=== PATIENT | male | born 1950 | race Caucasian/White ===

== ENCOUNTER 2017-01-01 17:19 | Emergency (ER) | payer OTHER, MEDICARE ==
[~2017-01-01] VITALS: Ht 177.8 cm; Wt 127.5 kg
[~2017-01-01 17:19] MED LIST: CARV12.5 PO; DIGO0.122 PO; DULO-24 PO; FENO1TAB24 PO; GABA-113 PO; INSHRIE SC; INSHRIE SQ; NRN600 PO; OXYC20TA50 PO; PRD/25 PO; PREG100C PO; ROSU20TA PO; RQP/2 PO; TAMS0.4C38 PO; WARF5TAB7 PO
[2017-01-01 17:20] VITALS: TEMP 36.9; Ht 177.8 cm; Wt 127.5 kg
[2017-01-01] MEDS ORDERED: METHYLPREDNISOLONE 125 MG VIAL IV STA (17:32)
--- NOTE | 2017-01-01 17:39 | EMERGENCY ROOM VISIT NOTE ---
History Report prepared by Kevin: Laith Davidson Under the Supervision of: Dr. Rayo Amos M.D. First contact with patient: 17:28 Chief Complaint: REFERRED BY DOCTOR Stated Complaint: CONGESTION, SEVERE LUNGS History of Present Illness The patient is a 66 year old male who presents to the Emergency Room with complaints of constant difficulty breathing for the past couple of days. The patient additionally states that that he is having chest tightness. The patient states that he has had bronchitis twice this winter, and it got better with antibiotics, and it has come back again. The patient's states that he has a history of a pulmonary embolus and congestive heart failure. Source of History: patient, spouse/significant other Onset: couple of days ago Position: other (global) Quality: other (difficulty breathing) Timing: constant Note: Associated symptoms: Chest tightness Review of Systems See HPI for pertinent positives & negatives. A total of 10 systems reviewed and were otherwise negative. Past Medical & Surgical Medical Problems: (1) Cardiomyopathy (2) CVA (cerebral vascular accident) (3) Diabetes (4) Diabetes mellitus (5) DVT (deep venous thrombosis) (6) GERD (gastroesophageal reflux disease) (7) History of acute renal failure (8) HTN (hypertension) (9) Hx of septic shock (10) Hypercholesteremia (11) Neuropathy (12) Pulmonary embolism (13) Spinal stenosis Surgical Problems: (1) Carpal tunnel syndrome, bilateral (2) History of tonsillectomy and adenoidectomy (3) Hx of cholecystectomy (4) Previous back surgery Family History Patient reports no known family medical history. Social History Smoking Status: Current Every Day Smoker Drug Use: none Marital Status: Housing Status: lives with family Occupation Status: retired Current/Historical Medications Scheduled Carvedilol (Coreg), 12.5 MG PO BID Digoxin (Digoxin), 0.125 MG PO QPM Duloxetine Hcl (Cymbalta), 20 MG PO QAM Fenofibrate (Fenofibrate), 145 MG PO HS Gabapentin (Neurontin), 300 MG PO QPM Gabapentin (Neurontin), 600 MG PO TID Insulin Human Regular (Humulin R), 70 UNITS SQ AMHS Insulin Human Regular (Humulin R), 85 UNITS SC With Evening Meal Liraglutide (Victoza), 0.6 UNITS SQ QAM Morphine Sulfate (Morphine Sulfate Er), 15 MG PO Q12 Oxycodone Hcl (Oxycodone Hcl), 10 MG PO TID Prednisone (Prednisone), 40 MG PO DAILY Ropinirole Hydrochloride (Requip), 4 MG PO QID Rosuvastatin Calcium (Crestor), 20 MG PO HS Tamsulosin Hcl (Flomax), 0.4 MG PO QPM Warfarin Sod (Jantoven), 5 MG PO QPM Allergies Coded Allergies: Shellfish (Verified Allergy, Intermediate, HIVES, 11/06/16) Fish Allergy (Verified Allergy, Mild, RASH, 11/06/16) Diphenhydramine (Verified Adverse Reaction, Mild, DISORIENTED, 11/06/16) Physical Exam Vital Signs Date Time Temp Pulse Resp B/P Pulse Ox O2 Delivery O2 Flow Rate FiO2 01/01/17 17:47 74 01/01/17 17:20 36.9 81 18 115/72 90 Room Air Physical Exam CONSTITUTIONAL: mild distress HEENT: No icterus, moist mucous membranes NECK: No meningismus, trachea is midline. CARDIOVASCULAR: Regular rate, normal perfusion RESPIRATORY: Unlabored breathing. Mild wheezing in all [place]. GASTROINTESTINAL: Non-tender GENITOURINARY: No flank tenderness MUSCULOSKELETAL: Full range of motion NEUROLOGIC: No acute gross focal deficits. PSYCHIATRIC: Normal affect SKIN: Normal for ethnicity. Medical Decision & Procedures Laboratory Results 01/01/17 17:40 Red Blood Count 4.40, Mean Corpuscular Volume 91.6, Mean Corpuscular Hemoglobin 31.8, Mean Corpuscular Hemoglobin Concent 34.7, Mean Platelet Volume 9.5, Neutrophils (%) (Auto) 69.8, Lymphocytes (%) (Auto) 16.4, Monocytes (%) (Auto) 8.3, Eosinophils (%) (Auto) 5.2, Basophils (%) (Auto) 0.2, Neutrophils # (Auto) 6.00, Lymphocytes # (Auto) 1.41, Monocytes # (Auto) 0.71, Eosinophils # (Auto) 0.45, Basophils # (Auto) 0.02 01/01/17 17:40 Test 01/01/17 17:32 01/01/17 17:40 White Blood Count 8.60 K/uL (4.8-10.8) Red Blood Count 4.40 M/uL (4.7-6.1) Hemoglobin 14.0 g/dL (14.0-18.0) Hematocrit 40.3 % (42-52) Mean Corpuscular Volume 91.6 fL (80-100) Mean Corpuscular Hemoglobin 31.8 pg (25-34) Mean Corpuscular Hemoglobin Concent 34.7 g/dl (32-36) Platelet Count 238 K/uL (130-400) Mean Platelet Volume 9.5 fL (7.4-10.4) Neutrophils (%) (Auto) 69.8 % Lymphocytes (%) (Auto) 16.4 % Monocytes (%) (Auto) 8.3 % Eosinophils (%) (Auto) 5.2 % Basophils (%) (Auto) 0.2 % Neutrophils # (Auto) 6.00 K/uL (1.4-6.5) Lymphocytes # (Auto) 1.41 K/uL (1.2-3.4) Monocytes # (Auto) 0.71 K/uL (0.11-0.59) Eosinophils # (Auto) 0.45 K/uL (0-0.5) Basophils # (Auto) 0.02 K/uL (0-0.2) RDW Standard Deviation 45.8 fL (36.4-46.3) RDW Coefficient of Variation 13.8 % (11.5-14.5) Immature Granulocyte % (Auto) 0.1 % Immature Granulocyte # (Auto) 0.01 K/uL (0.00-0.02) Anion Gap 8.0 mmol/L (3-11) Est Creatinine Clear Calc Drug Dose 83.4 ml/min Estimated GFR () 73.6 Estimated GFR (Non- 63.5 BUN/Creatinine Ratio 17.6 (10-20) Calcium Level 8.5 mg/dl (8.5-10.1) Troponin I < 0.015 ng/ml (0-0.045) Pro-B-Type Natriuretic Peptide 36 pg/ml (0-900) Labs reviewed by ED physician. Medications Administered Medications (Trade) Dose Ordered Sig/Raina Route Start Time Stop Time Status Last Admin Dose Admin Methylprednisolone Sodium Succinate (Solu-Medrol IV) 125 mg NOW STAT IV 01/01/17 17:32 01/01/17 17:34 DC 01/01/17 17:43 125 MG ED Course 1728: Past medical records reviewed. The patient was evaluated in room C10. A complete history and physical examination was performed. 1732: Solo-Medrol IV 125mg Medical Decision Differential diagnoses include but are not limited to; wheezing, viral illness, PE. 66-year-old presents into the emergency department for evaluation of one to 2 weeks of persistent cough and occasional shortness of breath. Seen at [facility] and sent to emergency department for evaluation. Screening exams negative other than likelihood of reactive airway disease. Moderate wheezing noted on exam given albuterol treatment and steroid subsequent relief. Albuterol MDI provided and prescription for prednisone. Provided copy of CAT scan report for follow-up with PCP Impression Primary Impression: Wheezing Scribe Attestation The scribe's documentation has been prepared under my direction and personally reviewed by me in its entirety. I confirm that the note above accurately reflects all work, treatment, procedures, and medical decision making performed by me. Departure Information Dispostion Home / Self-Care Prescriptions Prednisone (Prednisone) 20 Mg Tab 40 MG PO DAILY for 5 Days, #10 TAB Prov: Rayo Amos MD 01/01/17 Referrals Shade Mandel M.D. (PCP) Patient Instructions My [facility]
[2017-01-01] MEDS ORDERED: OPTIRAY 320 IV PRN (17:45)
[2017-01-01 18:03] LABS: BASO % 0.2 %; BASO ABS # 0.02 K/uL (0-0.2); COMPLETE YES; EOS % 5.2 %; HEMATOCRIT 40.3 % (42-52); IG% 0.1 %; LYMPH % 16.4 %; LYMPH ABS # 1.41 K/uL (1.2-3.4); MEAN CELL VOLUME 91.6 fL (80-100); MEAN CORPUSCULAR HEMOGLOBIN 31.8 pg (25-34); MEAN CORPUSCULAR HGB CONC 34.7 g/dl (32-36); MEAN PLATELET VOLUME 9.5 fL (7.4-10.4); MONO % 8.3 %; NEUT % 69.8 %; PLATELET COUNT 238 K/uL (130-400)
[2017-01-01 18:16] LABS: BLOOD UREA NITROGEN 21 mg/dl (7-18); BUN/CREATININE RATIO 17.6 (10-20); CALCIUM 8.5 mg/dl (8.5-10.1); CARBON DIOXIDE 28 mmol/L (21-32); CHLORIDE 102 mmol/L (98-107); GLUCOSE 219 mg/dl (70-99); POTASSIUM 4.6 mmol/L (3.5-5.1); SODIUM 138 mmol/L (136-145)
[2017-01-01] MEDS ORDERED: LNX125 PO (18:28)
[2017-01-01] MEDS ORDERED: OXYC-164 PO (18:28)
[2017-01-01] MEDS ORDERED: MORP1TAB11 PO (18:28)
[2017-01-01] MEDS ORDERED: NRN/600 PO (18:30)
--- NOTE | 2017-01-01 18:45 | DIAGNOSTIC IMAGING REPORT ---
SINGLE VIEW CHEST CLINICAL HISTORY: Dyspnea. FINDINGS: 2 AP, portable, upright chest radiographs are compared to study dated 11/06/2016. Correlation with chest CT dated 08/26/2014. The examination is degraded by portable technique and patient rotation. The heart is enlarged and there is atherosclerotic calcification of the thoracic aorta. Mild interstitial thickening suggests a component of congestive failure. No focal airspace consolidation or large pleural effusion is identified. No pneumothorax is seen. The bony thorax is grossly intact. IMPRESSION: 1. Cardiomegaly. Coarsening of the interstitium suggests mild congestive failure. Clinical correlation will be required. 2. There is no airspace consolidation or large pleural effusion. Electronically signed by: Aleksandar Sanchez M.D. 01/01/2017 6:44 PM Dictated Date/Time: 01/01/2017 6:42 PM
--- NOTE | 2017-01-01 19:26 | DIAGNOSTIC IMAGING REPORT ---
CT ANGIOGRAM OF THE CHEST CLINICAL HISTORY: Dyspnea. COMPARISON STUDY: Chest x-ray dated . Chest CT dated 08/26/2014. TECHNIQUE: Following the IV administration of 108 cc of Optiray 320, CT angiogram of the chest was performed from the upper abdomen to the thoracic inlet utilizing the pulmonary embolus protocol. Images are reviewed in the axial, sagittal, and coronal planes. 3-D MIPS images are created and assessed. IV contrast was administered without complication. CT DOSE: 700.16 mGy.cm FINDINGS: Thyroid: Imaged portions of the thyroid gland are normal in size and attenuation. Thoracic aorta: There is atherosclerotic calcification of the thoracic aorta, which is normal in caliber and demonstrates bovine variant arch anatomy. No dissection is seen. Pulmonary vasculature: The pulmonary trunk is normal in caliber. There are no filling defects identified in main, lobar, or proximal segmental pulmonary branches to suggest pulmonary embolus. Evaluation of the peripheral vessels is degraded by suboptimal contrast opacification. Heart: The heart is enlarged and without pericardial effusion. The coronary arteries are densely calcified. Lungs and pleural spaces: Evaluation of the lung parenchyma is degraded by expiratory motion artifact. Mild emphysematous change is observed. . There is nonspecific peribronchial thickening, with intraluminal fluid/secretions present within the dependent lower lobe airways. No pleural effusion or lobar consolidation is seen. Dependent atelectasis is noted. Scattered calcified granulomas are identified. There is an 11 mm right lower lobe pulmonary nodule seen on image #152. An 8 mm left lower lobe nodule is seen on image #152. A 4 mm pleural-based nodule in the right middle lobe as seen on image #138. A 6 mm right upper lobe nodule is seen on image #212. Mediastinum: There are scattered subcentimeter mediastinal lymph nodes. These are not pathologically enlarged by size criteria. Ruma: Clear. Axillae: There is no axillary lymphadenopathy. Upper abdomen: There is a tiny hiatal hernia. Severe hepatic steatosis is identified. Cholecystectomy clips are noted. The spleen is enlarged measuring 14.7 cm in length. Skeletal structures: The skeletal structures are osteopenic. Degenerative change is seen throughout the thoracic spine. No lytic or blastic bony lesions are seen. IMPRESSION: 1. There is no evidence of pulmonary embolus in the main, lobar, or proximal segmental pulmonary arteries. 2. There is no airspace consolidation or pleural effusion. 3. There is mild diffuse peribronchial thickening. Fluid/secretions are present within the dependent lower lobe airways. Correlate clinically for evidence of reactive airway disease and/or aspiration. 4. Cardiomegaly and mild emphysema. 5. There is an 11 mm right lower lobe pulmonary nodule and an 8 mm left lower lobe pulmonary nodule. Additional smaller nodules are detailed above. The larger nodules were likely present on the 2013 examination; however, direct comparison is difficult due to low resolution of the prior outside study. A 6 month follow-up examination is recommended for reassessment. 7. Severe hepatic steatosis. 8. Splenomegaly. Electronically signed by: Aleksandar Sanchez M.D. 01/01/2017 7:25 PM Dictated Date/Time: 01/01/2017 7:16 PM
[2017-01-01] MEDS ORDERED: PRED20TA PO (19:48)
[2017-01-01] MEDS ORDERED: ALBUTEROL HFA 8 GM INHALER INH ONE (20:00)
[2017-01-01 20:23] VITALS: BP 116/68; PULSE 72; O2SAT 98
[2017-01-01 22:48] LABS: INR 2.8 (0.9-1.1); PARTIAL THROMBOPLASTIN RATIO 1.8; PROTHROMBIN TIME (PATIENT) 31.6 SECONDS (9.0-12.0)
[2017-03-06] MEDS ORDERED: LIRA18IN SQ (14:45)
== END 2017-01-01 20:24 | disposition home or self-care (01) ==
LOC: C.EDB 17:20 → C.EDC 20:24
DX: R06.2 Wheezing (principal); R05 Cough; I10 Essential (primary) hypertension; E78.00 Pure hypercholesterolemia, unspecified; E11.9 Type 2 diabetes mellitus without complications; K21.9 Gastro-esophageal reflux disease without esophagitis; Z86.73 Personal history of transient ischemic attack (TIA), and cerebral infarction without residual deficits; I42.9 Cardiomyopathy, unspecified; F17.200 Nicotine dependence, unspecified, uncomplicated; Z86.711 Personal history of pulmonary embolism; Z86.718 Personal history of other venous thrombosis and embolism; Z90.49 Acquired absence of other specified parts of digestive tract; Z98.890 Other specified postprocedural states; Z79.4 Long term (current) use of insulin; Z79.01 Long term (current) use of anticoagulants; Z79.899 Other long term (current) drug therapy; Z91.018 Allergy to other foods; Z88.8 Allergy status to other drugs, medicaments and biological substances

== ENCOUNTER 2017-01-15 14:03 | Emergency (ER) | payer OTHER, MEDICARE ==
[~2017-01-15] VITALS: Ht 177.8 cm; Wt 128.0 kg
[~2017-01-15 14:03] MED LIST changes: -DIGO0.122 PO; +LNX125 PO; +MORP1TAB11 PO; +NRN/600 PO; -NRN600 PO; +OXYC-164 PO; -OXYC20TA50 PO; -PRD/25 PO; -PREG100C PO
[2017-01-15 14:08] VITALS: TEMP 36.8; Ht 177.8 cm; Wt 128.0 kg
[2017-01-15 14:38] VITALS: O2SAT 96
[2017-01-15 14:56] LABS: BASO % 0.3 %; BASO ABS # 0.03 K/uL (0-0.2); COMPLETE YES; EOS % 2.9 %; HEMATOCRIT 40.2 % (42-52); IG% 0.2 %; LYMPH % 16.8 %; LYMPH ABS # 1.73 K/uL (1.2-3.4); MEAN CELL VOLUME 91.2 fL (80-100); MEAN CORPUSCULAR HEMOGLOBIN 32.2 pg (25-34); MEAN CORPUSCULAR HGB CONC 35.3 g/dl (32-36); MEAN PLATELET VOLUME 9.8 fL (7.4-10.4); MONO % 5.3 %; NEUT % 74.5 %; PLATELET COUNT 243 K/uL (130-400); RED BLOOD COUNT 4.41 M/uL (4.7-6.1)
[2017-01-15] MEDS ORDERED: ALBUT/IPRATROP 3MG/0.5MG NEB 3 ML VIAL INH STA (14:58)
[2017-01-15] MEDS ORDERED: METHYLPREDNISOLONE 125 MG VIAL IV STA (14:58)
[2017-01-15 15:15] LABS: ALB/GLOB RATIO 0.9 (0.9-2); ALKALINE PHOSPHATASE 90 U/L (45-117); ALT/SGPT 76 U/L (12-78); BLOOD UREA NITROGEN 24 mg/dl (7-18); BUN/CREATININE RATIO 20.2 (10-20); CALCIUM 8.7 mg/dl (8.5-10.1); CARBON DIOXIDE 25 mmol/L (21-32); CHLORIDE 102 mmol/L (98-107); GLUCOSE 330 mg/dl (70-99); SODIUM 136 mmol/L (136-145)
[2017-01-15 15:25] LABS: BETA-HYDROXYBUTYRATE 1.89 mg/dL (0.2-2.81)
[2017-01-15 15:39] LABS: POTASSIUM 4.7 mmol/L (3.5-5.1)
--- NOTE | 2017-01-15 15:42 | DIAGNOSTIC IMAGING REPORT ---
CHEST ONE VIEW PORTABLE CLINICAL HISTORY: Shortness of breath COMPARISON STUDY: 01/01/2017 FINDINGS: The heart is normal in size. There is mild interstitial thickening unchanged the prior study. There is no lobar consolidation. A right infrahilar opacity is felt to reflect a summation. No pleural effusions are visualized. There is no pneumothorax.[ IMPRESSION: Stable mild interstitial thickening. No evidence of lobar consolidation. Electronically signed by: Ortiz Pederson M.D. 01/15/2017 3:41 PM Dictated Date/Time: 01/15/2017 3:39 PM
[2017-01-15 15:47] LABS: INR 1.8 (0.9-1.1); PARTIAL THROMBOPLASTIN RATIO 1.4; PROTHROMBIN TIME (PATIENT) 19.3 SECONDS (9.0-12.0)
[2017-01-15] MEDS ORDERED: AZITTAB PO (16:02)
[2017-01-15] MEDS ORDERED: PRED20TA PO (16:02)
--- NOTE | 2017-01-15 16:02 | EMERGENCY ROOM VISIT NOTE ---
History Report prepared by Kevin: Jing Wright Under the Supervision of: Dr. Mars Spann D.O. First contact with patient: 14:51 Chief Complaint: SHORTNESS OF BREATH Stated Complaint: SOB,COUGH Nursing Triage Summary: Patient states was diagnosed with viral bronchitis about 1 month ago. Patient states has taken antibiotics, steroids, and an inhaler with little to no relief. Patient states continues to experience SOB and productive cough and is not feeling any better. History of Present Illness The patient is a 66 year old male who presents to the Emergency Room with complaints of persistent shortness of breath occurring for the past month. He also notes a productive cough with morton colored mucous. He has worsening symptoms with exertion. About a month ago, the patient was placed on antibiotics with temporary relief. About 2 weeks ago, he was evaluated in the Emergency Room for similar symptoms. He was placed on steroids without relief. He has also been using Albuterol without relief. The patient denies fevers, chills, or any other complaints. He has a history of blood clots and heart disease. He is on Coumadin. Source of History: patient Onset: a month ago Position: other (global) Quality: other (shortness of breath) Timing: other (persistent) Modifying Factors (Worsening): exertion Modifying Factors (Relieving): other (steroids, Albuterol without relief; antibiotics with temporary relief) Associated Symptoms: + cough, No chest pain, No chills, No fevers Review of Systems See HPI for pertinent positives & negatives. A total of 10 systems reviewed and were otherwise negative. Past Medical & Surgical Medical Problems: (1) Cardiomyopathy (2) CVA (cerebral vascular accident) (3) Diabetes (4) Diabetes mellitus (5) DVT (deep venous thrombosis) (6) GERD (gastroesophageal reflux disease) (7) History of acute renal failure (8) HTN (hypertension) (9) Hx of septic shock (10) Hypercholesteremia (11) Neuropathy (12) Pulmonary embolism (13) Spinal stenosis Surgical Problems: (1) Carpal tunnel syndrome, bilateral (2) History of tonsillectomy and adenoidectomy (3) Hx of cholecystectomy (4) Previous back surgery Family History Patient reports no known family medical history. Social History Smoking Status: Current Every Day Smoker Drug Use: none Marital Status: Housing Status: lives with family Occupation Status: retired Current/Historical Medications Scheduled Azithromycin (Zithromax Z-Juni), 0 PO UD Carvedilol (Coreg), 12.5 MG PO BID Digoxin (Digoxin), 0.125 MG PO QPM Duloxetine Hcl (Cymbalta), 20 MG PO QAM Fenofibrate (Fenofibrate), 145 MG PO HS Gabapentin (Neurontin), 300 MG PO QPM Gabapentin (Neurontin), 600 MG PO TID Insulin Human Regular (Humulin R), 70 UNITS SQ AMHS Insulin Human Regular (Humulin R), 85 UNITS SC With Evening Meal Liraglutide (Victoza), 0.6 UNITS SQ QAM Morphine Sulfate (Morphine Sulfate Er), 15 MG PO Q12 Oxycodone Hcl (Oxycodone Hcl), 10 MG PO TID Prednisone (Prednisone), 2 TAB PO DAILY Ropinirole Hydrochloride (Requip), 4 MG PO QID Rosuvastatin Calcium (Crestor), 20 MG PO HS Tamsulosin Hcl (Flomax), 0.4 MG PO QPM Warfarin Sod (Jantoven), 5 MG PO QPM Allergies Coded Allergies: Shellfish (Verified Allergy, Intermediate, HIVES, 01/15/17) Fish Allergy (Verified Allergy, Mild, RASH, 01/15/17) Diphenhydramine (Verified Adverse Reaction, Mild, DISORIENTED, 01/15/17) Physical Exam Vital Signs Date Time Temp Pulse Resp B/P Pulse Ox O2 Delivery O2 Flow Rate FiO2 01/15/17 15:52 76 18 110/69 99 Room Air 01/15/17 14:54 94 01/15/17 14:38 96 Nasal Cannula 2.0 01/15/17 14:23 96 Nasal Cannula 2.0 01/15/17 14:22 77 01/15/17 14:18 96 Nasal Cannula 2.0 01/15/17 14:08 36.8 83 22 137/82 90 Room Air Physical Exam CONSTITUTIONAL/VITAL SIGNS: Reviewed / noted above. GENERAL: Non-toxic in appearance. INTEGUMENTARY: Warm, dry, and [place]. HEAD: Normocephalic. EYES: without scleral icterus or trauma. ENT/OROPHARYNX: clear and moist. LYMPHADENOPATHY/NECK: Is supple without lymphadenopathy or meningismus. RESPIRATORY: Expiratory wheezing, no increased work of breathing or distress. CARDIOVASCULAR: Regular rate and rhythm. GI/ABDOMEN: Soft and nontender. No organomegaly or pulsatile mass. No rebound or guarding. Normal bowel sounds. EXTREMITIES: Warm and well perfused. BACK: No CVA tenderness. NEUROLOGICAL: Intact without focal deficits. PSYCHIATRIC: normal affect. MUSCULOSKELETAL: Normally developed with good muscle tone. Medical Decision & Procedures ER Provider Diagnostic Interpretation: X ray results and stated below per my interpretation and radiology interpretation. CHEST ONE VIEW PORTABLE CLINICAL HISTORY: Shortness of breath COMPARISON STUDY: 01/01/2017 FINDINGS: The heart is normal in size. There is mild interstitial thickening unchanged the prior study. There is no lobar consolidation. A right infrahilar opacity is felt to reflect a summation. No pleural effusions are visualized. There is no pneumothorax.[ IMPRESSION: Stable mild interstitial thickening. No evidence of lobar consolidation. Electronically signed by: Ortiz Pederson M.D. 01/15/2017 3:41 PM Dictated Date/Time: 01/15/2017 3:39 PM Laboratory Results 01/15/17 14:35 Red Blood Count 4.41, Mean Corpuscular Volume 91.2, Mean Corpuscular Hemoglobin 32.2, Mean Corpuscular Hemoglobin Concent 35.3, Mean Platelet Volume 9.8, Neutrophils (%) (Auto) 74.5, Lymphocytes (%) (Auto) 16.8, Monocytes (%) (Auto) 5.3, Eosinophils (%) (Auto) 2.9, Basophils (%) (Auto) 0.3, Neutrophils # (Auto) 7.67, Lymphocytes # (Auto) 1.73, Monocytes # (Auto) 0.55, Eosinophils # (Auto) 0.30, Basophils # (Auto) 0.03 01/15/17 14:35 01/15/17 15:19 Test 01/15/17 14:35 01/15/17 15:03 01/15/17 15:19 White Blood Count 10.30 K/uL (4.8-10.8) Red Blood Count 4.41 M/uL (4.7-6.1) Hemoglobin 14.2 g/dL (14.0-18.0) Hematocrit 40.2 % (42-52) Mean Corpuscular Volume 91.2 fL (80-100) Mean Corpuscular Hemoglobin 32.2 pg (25-34) Mean Corpuscular Hemoglobin Concent 35.3 g/dl (32-36) Platelet Count 243 K/uL (130-400) Mean Platelet Volume 9.8 fL (7.4-10.4) Neutrophils (%) (Auto) 74.5 % Lymphocytes (%) (Auto) 16.8 % Monocytes (%) (Auto) 5.3 % Eosinophils (%) (Auto) 2.9 % Basophils (%) (Auto) 0.3 % Neutrophils # (Auto) 7.67 K/uL (1.4-6.5) Lymphocytes # (Auto) 1.73 K/uL (1.2-3.4) Monocytes # (Auto) 0.55 K/uL (0.11-0.59) Eosinophils # (Auto) 0.30 K/uL (0-0.5) Basophils # (Auto) 0.03 K/uL (0-0.2) RDW Standard Deviation 44.1 fL (36.4-46.3) RDW Coefficient of Variation 13.2 % (11.5-14.5) Immature Granulocyte % (Auto) 0.2 % Immature Granulocyte # (Auto) 0.02 K/uL (0.00-0.02) Anion Gap 9.0 mmol/L (3-11) Est Creatinine Clear Calc Drug Dose 83.6 ml/min Estimated GFR () 73.6 Estimated GFR (Non- 63.5 BUN/Creatinine Ratio 20.2 (10-20) Calcium Level 8.7 mg/dl (8.5-10.1) Total Bilirubin 0.3 mg/dl (0.2-1) Alanine Aminotransferase (ALT/SGPT) 76 U/L (12-78) Alkaline Phosphatase 90 U/L (45-117) Total Protein 6.6 gm/dl (6.4-8.2) Albumin 3.2 gm/dl (3.4-5.0) Globulin 3.4 gm/dl (2.5-4.0) Albumin/Globulin Ratio 0.9 (0.9-2) Beta-Hydroxybutyric Acid 1.89 mg/dL (0.2-2.81) Bedside Troponin I 0.010 ng/ml (0-0.045) Prothrombin Time 19.3 SECONDS (9.0-12.0) Prothromb Time International Ratio 1.8 (0.9-1.1) Activated Partial Thromboplast Time 35.9 SECONDS (21.0-31.0) Partial Thromboplastin Ratio 1.4 Aspartate Amino Transf (AST/SGOT) 24 U/L (15-37) Laboratory results as stated above per my review. Medications Administered Medications (Trade) Dose Ordered Sig/Raina Route Start Time Stop Time Status Last Admin Dose Admin Albuterol/ Ipratropium (Duoneb) 3 ml NOW STAT INH 01/15/17 14:58 01/15/17 14:59 DC 01/15/17 15:06 3 ML Methylprednisolone Sodium Succinate (Solu-Medrol IV) 125 mg NOW STAT IV 01/15/17 14:58 01/15/17 14:59 DC 01/15/17 15:06 125 MG ECG Indication: SOB/dyspnea Rate (beats per minute): 76 Rhythm: normal sinus Findings: no acute ischemic change, no ectopy ED Course 1451: Previous medical records were reviewed. The patient was evaluated in room C07. A complete history and physical examination was performed. 1458: Solu-Medrol IV 125 mg IV, DuoNeb 3 ml INH 1605: On reevaluation, the patient is resting comfortably. I discussed the results and findings with the patient. He verbalized agreement of the treatment plan. He was discharged home. Medical Decision the differential was considered includes acute myocardial infarction, acute coronary syndrome, myocarditis, pericarditis, pericardial effusions /tamponade, esophageal perforation, pulmonary embolism, pneumonia, pneumothorax, cardiomyopathy, congestive heart, anemia , COPD/asthma exacerbation. This is a 66-year-old male who presents to the ED with a chief complaint of shortness of breath. The patient states that he has had the symptoms for over a month. He was seen here couple of weeks ago after having had a course of antibiotics. He states that the antibiotics did not help. He was placed on steroids and nebulizers and he states that this also has not helped him. The patient reports a cough that is productive of a grayish sputum. He does have an albuterol inhaler at home that has not seemed to help as well. His vital signs are normal. His physical exam reveals some expiratory wheezing on end expiration. He has been no respiratory distress. He is breathing comfortably. A chest x-ray did not show acute disease. A CBC is normal. INR is 1.8. The patient is on Coumadin for history of thromboembolic disease. The BUN is 24 and the troponin was negative. The patient was treated with Solu-Medrol IV and DuoNeb treatment here. Because of persistent symptoms, he'll be placed on a course of steroids as well as antibiotics. Prescribed for Zithromax provided. Prescription for prednisone provided. It was sent electronically but the patient requested written prescriptions so he could get them at [facility] locally. Impression Primary Impression: Acute bronchitis Additional Impression: Reactive airway disease Scribe Attestation The scribe's documentation has been prepared under my direction and personally reviewed by me in its entirety. I confirm that the note above accurately reflects all work, treatment, procedures, and medical decision making performed by me. Departure Information Dispostion Home / Self-Care Prescriptions Prednisone (Prednisone) 20 Mg Tab 2 TAB PO DAILY for 4 Days, #8 TAB Prov: Mars Spann D.O. 01/15/17 Azithromycin (ZITHROMAX Z-JUNI) 250 Mg Tab 0 PO UD, #1 PKT 2 TABS DAY 1, THEN 1 TAB DAILY FOR 4 DAYS Prov: Mars Spann D.O. 01/15/17 Referrals Shade Mandel M.D. (PCP) Forms HOME CARE DOCUMENTATION FORM, IMPORTANT VISIT INFORMATION Patient Instructions My [facility] Problem Qualifiers
[2017-01-15 16:12] VITALS: BP 110/69; PULSE 76; O2SAT 99
[2017-03-06] MEDS ORDERED: LIRA18IN SQ (14:45)
== END 2017-01-15 16:13 | disposition home or self-care (01) ==
LOC: C.EDB 14:06 → C.EDC 16:13
DX: J20.9 Acute bronchitis, unspecified (principal); J45.909 Unspecified asthma, uncomplicated; Z86.73 Personal history of transient ischemic attack (TIA), and cerebral infarction without residual deficits; E11.9 Type 2 diabetes mellitus without complications; Z86.718 Personal history of other venous thrombosis and embolism; K21.9 Gastro-esophageal reflux disease without esophagitis; I10 Essential (primary) hypertension; N19 Unspecified kidney failure; E78.00 Pure hypercholesterolemia, unspecified; Z86.711 Personal history of pulmonary embolism; M48.00 Spinal stenosis, site unspecified; I42.9 Cardiomyopathy, unspecified; F17.210 Nicotine dependence, cigarettes, uncomplicated; Z79.01 Long term (current) use of anticoagulants; Z79.4 Long term (current) use of insulin; Z79.899 Other long term (current) drug therapy

== ENCOUNTER 2017-02-18 14:58 | Emergency (ER) | payer OTHER, MEDICARE ==
[~2017-02-18] VITALS: Ht 177.8 cm; Wt 131.0 kg
[2017-02-18 15:12] VITALS: TEMP 36.7; Ht 177.8 cm; Wt 131.0 kg
[2017-02-18] MEDS ORDERED: ALBUT/IPRATROP 3MG/0.5MG NEB 3 ML VIAL INH STA ×2 (16:14→17:14)
--- NOTE | 2017-02-18 16:18 | EMERGENCY ROOM VISIT NOTE ---
History Report prepared by Kevin: Richard Reynolds Under the Supervision of: Dr. Amanda Mazariegos D.O. First contact with patient: 15:35 Chief Complaint: RESPIRATORY PROBLEMS Stated Complaint: DIFFICULTY BREATHING, EXHAUSTION, WHEEZING Nursing Triage Summary: Pt stated that he has been having respiratory issues for the last 3 weeks. Pt was diagnosed with bronchitis 2 weeks ago. He was given antibiotic and steriod treatment. Pt states that for the last couple of days he is really having a hard time breathing. Pt is becomes SOB even at rest. Pt has a productive cough. Moderate amount of thick, brown sputum. Pt denies fever/N/V. History of Present Illness The patient is a 66 year old male who presents to the Emergency Room with complaints of recurrent respiratory symptoms for the past two months. The patient's symptoms include productive cough, shortness of breath, subjective fevers, and fatigue. The cough produces brown thick mucous which he states is normal. Feels in general he is coughing less. The patient came to the ED for his symptoms two months ago and was treated with Prednisone and Azithromycin. He was feeling better for about a week then his symptoms returned. He came to the ED with the same symptoms last month, and was treated with Prednisone and Azithromycin again. He was once again feeling better initially before his symptoms worsened. He started wheezing three days ago and also complains of chest pressure. The patient smoked for over 20 years, 20 years ago. At that time , he smoked 2-3 packs per day. He also smoked for about one year recently but recently quit again. The patient does not have any nebulizers or inhalers at home. He has never followed up with Pulmonology. He is currently on blood thinners. Source of History: patient Onset: two months ago Position: other (respiratory) Quality: other (respiratory symptoms) Timing: other (recurrent) Associated Symptoms: + SOB, + chest pain, + cough, + fatigue, + fevers Review of Systems See HPI for pertinent positives & negatives. A total of 10 systems reviewed and were otherwise negative. Past Medical & Surgical Medical Problems: (1) Cardiomyopathy (2) CVA (cerebral vascular accident) (3) Diabetes (4) Diabetes mellitus (5) DVT (deep venous thrombosis) (6) GERD (gastroesophageal reflux disease) (7) History of acute renal failure (8) HTN (hypertension) (9) Hx of septic shock (10) Hypercholesteremia (11) Neuropathy (12) Pulmonary embolism (13) Spinal stenosis Surgical Problems: (1) Carpal tunnel syndrome, bilateral (2) History of tonsillectomy and adenoidectomy (3) Hx of cholecystectomy (4) Previous back surgery Family History Patient reports no known family medical history. Social History Smoking Status: Former Smoker Drug Use: none Marital Status: Housing Status: lives with family Occupation Status: retired Current/Historical Medications Scheduled Carvedilol (Coreg), 12.5 MG PO BID Digoxin (Digoxin), 0.125 MG PO QPM Duloxetine Hcl (Cymbalta), 20 MG PO QAM Fenofibrate (Fenofibrate), 145 MG PO HS Fluticasone Prop/Salmeterol (Advair Diskus 250/50 60 Dose), 1 PUFFS INH BID Gabapentin (Neurontin), 300 MG PO QPM Gabapentin (Neurontin), 600 MG PO BID Insulin Human Regular (Humulin R), 70 UNITS SQ BID Insulin Human Regular (Humulin R), 85 UNITS SC With Evening Meal Liraglutide (Victoza), 1.2 UNITS SQ QAM Morphine Sulfate (Morphine Sulfate Er), 15 MG PO Q12 Oxycodone Hcl (Oxycodone Hcl), 10 MG PO TID Ropinirole Hydrochloride (Requip), 4 MG PO QID Rosuvastatin Calcium (Crestor), 20 MG PO HS Tamsulosin Hcl (Flomax), 0.4 MG PO QPM Warfarin Sod (Jantoven), 5 MG PO QPM Scheduled PRN Albuterol (Ventolin Hfa), 2 PUFFS INH Q4H PRN for SOB/Wheezing Allergies Coded Allergies: Shellfish (Verified Allergy, Intermediate, HIVES, 01/15/17) Fish Allergy (Verified Allergy, Mild, RASH, 01/15/17) Diphenhydramine (Verified Adverse Reaction, Mild, DISORIENTED, 01/15/17) Physical Exam Vital Signs Date Time Temp Pulse Resp B/P Pulse Ox O2 Delivery O2 Flow Rate FiO2 02/18/17 19:44 68 18 116/68 93 02/18/17 19:08 72 18 120/77 93 Room Air 02/18/17 19:08 93 20 91 Room Air 02/18/17 17:40 70 21 124/65 92 Room Air 02/18/17 16:34 71 02/18/17 15:46 94 Room Air 02/18/17 15:12 36.7 76 20 90 Room Air Physical Exam GENERAL: alert, well appearing, well nourished, no distress, non-toxic EYE EXAM: normal conjunctiva, PERRL and EOM's grossly intact OROPHARYNX: no exudate, no erythema, lips, buccal mucosa, and tongue normal and mucous membranes are moist NECK: supple, no nuchal rigidity, no adenopathy, non-tender LUNGS: Diminished breath sounds bilaterally. Normal chest wall mechanics, no increased WOB, no accessory muscle use HEART: no murmurs, S1 normal and S2 normal ABDOMEN: abdomen soft, non-tender, normo-active bowel sounds, no masses, no rebound or guarding. BACK: Back is symmetrical on inspection and there is no deformity, no midline tenderness, no CVA tenderness. SKIN: no rashes and no bruising UPPER EXTREMITIES: upper extremities are grossly normal. LOWER EXTREMITIES: 1+ lower extremity edema. NEURO EXAM: Normal sensorium, cranial nerves II-XII grossly intact, normal speech, no gross weakness of arms, no gross weakness of legs. Gross sensation intact. Medical Decision & Procedures ER Provider Diagnostic Interpretation: Xray results per the radiologist and my interpretation. CHEST ONE VIEW PORTABLE CLINICAL HISTORY: Shortness of breath. COMPARISON STUDY: Chest CT January 01, 2017 and chest radiograph January 15, 2017. FINDINGS: Lung volumes are normal. There is no pneumothorax or pleural effusion. Pulmonary vascularity is normal. Mild cardiomegaly is unchanged. There is no evidence of pulmonary edema. IMPRESSION: No acute cardiopulmonary findings. Electronically signed by: Brayden Bansal M.D. 02/18/2017 4:20 PM Dictated Date/Time: 02/18/2017 4:19 PM Laboratory Results 02/18/17 16:30 Red Blood Count 4.14, Mean Corpuscular Volume 89.4, Mean Corpuscular Hemoglobin 31.2, Mean Corpuscular Hemoglobin Concent 34.9, Mean Platelet Volume 9.6, Neutrophils (%) (Auto) 64.9, Lymphocytes (%) (Auto) 22.5, Monocytes (%) (Auto) 7.2, Eosinophils (%) (Auto) 4.9, Basophils (%) (Auto) 0.4, Neutrophils # (Auto) 4.39, Lymphocytes # (Auto) 1.52, Monocytes # (Auto) 0.49, Eosinophils # (Auto) 0.33, Basophils # (Auto) 0.03 02/18/17 16:30 Test 02/18/17 16:30 White Blood Count 6.77 K/uL (4.8-10.8) Red Blood Count 4.14 M/uL (4.7-6.1) Hemoglobin 12.9 g/dL (14.0-18.0) Hematocrit 37.0 % (42-52) Mean Corpuscular Volume 89.4 fL (80-100) Mean Corpuscular Hemoglobin 31.2 pg (25-34) Mean Corpuscular Hemoglobin Concent 34.9 g/dl (32-36) Platelet Count 224 K/uL (130-400) Mean Platelet Volume 9.6 fL (7.4-10.4) Neutrophils (%) (Auto) 64.9 % Lymphocytes (%) (Auto) 22.5 % Monocytes (%) (Auto) 7.2 % Eosinophils (%) (Auto) 4.9 % Basophils (%) (Auto) 0.4 % Neutrophils # (Auto) 4.39 K/uL (1.4-6.5) Lymphocytes # (Auto) 1.52 K/uL (1.2-3.4) Monocytes # (Auto) 0.49 K/uL (0.11-0.59) Eosinophils # (Auto) 0.33 K/uL (0-0.5) Basophils # (Auto) 0.03 K/uL (0-0.2) RDW Standard Deviation 41.6 fL (36.4-46.3) RDW Coefficient of Variation 12.8 % (11.5-14.5) Immature Granulocyte % (Auto) 0.1 % Immature Granulocyte # (Auto) 0.01 K/uL (0.00-0.02) Prothrombin Time 43.6 SECONDS (9.0-12.0) Prothromb Time International Ratio 3.9 (0.9-1.1) Anion Gap 4.0 mmol/L (3-11) Est Creatinine Clear Calc Drug Dose 78.1 ml/min Estimated GFR () 66.8 Estimated GFR (Non- 57.7 BUN/Creatinine Ratio 22.7 (10-20) Calcium Level 8.8 mg/dl (8.5-10.1) Total Bilirubin 0.2 mg/dl (0.2-1) Aspartate Amino Transf (AST/SGOT) 32 U/L (15-37) Alanine Aminotransferase (ALT/SGPT) 52 U/L (12-78) Alkaline Phosphatase 83 U/L (45-117) Troponin I < 0.015 ng/ml (0-0.045) Pro-B-Type Natriuretic Peptide 46 pg/ml (0-900) Total Protein 6.5 gm/dl (6.4-8.2) Albumin 3.0 gm/dl (3.4-5.0) Globulin 3.5 gm/dl (2.5-4.0) Albumin/Globulin Ratio 0.9 (0.9-2) Laboratory results per my review. Medications Administered Medications (Trade) Dose Ordered Sig/Raina Route Start Time Stop Time Status Last Admin Dose Admin Albuterol/ Ipratropium (Duoneb) 3 ml ONE STAT INH 02/18/17 16:14 02/18/17 16:16 DC 02/18/17 16:38 3 ML Albuterol/ Ipratropium (Duoneb) 3 ml NOW STAT INH 02/18/17 17:14 02/18/17 17:15 DC 02/18/17 17:37 3 ML Prednisone (PredniSONE TAB) 60 mg NOW STAT PO 02/18/17 17:15 02/18/17 17:16 DC 02/18/17 17:38 60 MG Albuterol (Ventolin Hfa Inhaler) 2 puffs NOW ONCE INH 02/18/17 19:30 02/18/17 19:31 DC 02/18/17 19:34 2 PUFFS ECG Indication: SOB/dyspnea Rate (beats per minute): 69 Rhythm: normal sinus Findings: no acute ischemic change, other (normal axis, normal intervals) Change: no significant change ED Course 1545: The patient was evaluated by my medical student. We discussed the patient' s history & physical and a possible treatment plan. 1600: The patient was evaluated in room C10. A complete history and physical exam was performed. 1614: DuoNeb 3 ml INH. 1714: DuoNeb 3 ml INH. 1715: Prednisone 60 mg PO. 1734: The patient sounds a little better. There are no wheezes rales or rhonchi. He is resting comfortably. 1919: Reassessed the patient. They are feeling better. They will be discharged. 1929: Albuterol 2 puffs INH. Medical Decision Differential diagnoses includes but is not limited to pneumonia, bronchitis, COPD/Asthma exacerbation, pneumothorax, pulmonary embolism, congestive heart failure, acute coronary syndrome No worsening hypoxia, change in cough/sputum, fevers to suggest COPD exacerbation. Pt not currently using any MDI/nebs at home. Likely with underlying copd/emphysema given prior pack year hx. Recommended pcp/ pulmonology f/u. Discussed use of MDI at home, discussed controller meds. Pt given one dose of steroids here, then on further discussion with pt, concern about hyperglycemia with hx of DM. Glucose elevated here already. No evidence of DKA. Doubt acs, chf. Doubt occult infection. No home oxygen use. Pt's sats in low 90's, likely chronic for him. Pt ambulated without increased wob or complaints of SOB. Discussed sx to watch/return for, COPD, MDI's, he verbalized understanding and was agreeable with plan. Advised to skip one dose of coumadin due to elevated INR. Doubt PE given INR. Doubt other vascular pathology. Impression Primary Impression: Dyspnea Additional Impression: COPD (chronic obstructive pulmonary disease) Scribe Attestation The scribe's documentation has been prepared under my direction and personally reviewed by me in its entirety. I confirm that the note above accurately reflects all work, treatment, procedures, and medical decision making performed by me. Departure Information Dispostion Home / Self-Care Prescriptions Fluticasone Prop/Salmeterol (Advair Diskus 250/50 60 Dose) 1 Ea Aerp 1 PUFFS INH BID for 30 Days, #1 INHALER 5 Refills Prov: Amanda Mazariegos, DO 02/18/17 Albuterol (Ventolin Hfa) 60 Puffs/5400 Mcg Aers 2 PUFFS INH Q4H Y for SOB/Wheezing, #1 INHALER Prov: Amanda Mazariegos, DO 02/18/17 Referrals No Doctor, Assigned (PCP) Forms HOME CARE DOCUMENTATION FORM, IMPORTANT VISIT INFORMATION, WORK / SCHOOL INSTRUCTIONS Patient Instructions My [facility] Additional Instructions Please call and follow-up with your family doctor and discuss seeing a automotive wholesale parts advisor (lung specialist) with them. You may use the inhaler up to every 4 hours as needed, please use it with the spacer. If you have any worsening trouble breathing, develop fevers, increased cough, notice a change in your sputum, develop chest pain/pressure, dizziness, vomiting, or you have any other new or concerning symptoms, please return to the ER immediately. Please continue checking your blood sugar several times a day and taking your regular medications as prescribed. If you have any elevated blood sugar readings, please call your doctor or return to the ER. Your INR tonight was 3.9. Please skip one dose of coumadin and then continue taking it daily. Please have your INR rechecked next week as precaution. Problem Qualifiers Primary Impression: Dyspnea Dyspnea type: shortness of breath Qualified Codes: R06.02 - Shortness of breath Additional Impression: COPD (chronic obstructive pulmonary disease) COPD type: unspecified COPD Qualified Codes: J44.9 - Chronic obstructive pulmonary disease, unspecified
--- NOTE | 2017-02-18 16:21 | DIAGNOSTIC IMAGING REPORT ---
CHEST ONE VIEW PORTABLE CLINICAL HISTORY: Shortness of breath. COMPARISON STUDY: Chest CT January 01, 2017 and chest radiograph January 15, 2017. FINDINGS: Lung volumes are normal. There is no pneumothorax or pleural effusion. Pulmonary vascularity is normal. Mild cardiomegaly is unchanged. There is no evidence of pulmonary edema. IMPRESSION: No acute cardiopulmonary findings. Electronically signed by: Brayden Bansal M.D. 02/18/2017 4:20 PM Dictated Date/Time: 02/18/2017 4:19 PM
[2017-02-18 16:43] LABS: BASO % 0.4 %; BASO ABS # 0.03 K/uL (0-0.2); COMPLETE YES; EOS % 4.9 %; IG% 0.1 %; LYMPH % 22.5 %; LYMPH ABS # 1.52 K/uL (1.2-3.4); MEAN CELL VOLUME 89.4 fL (80-100); MEAN CORPUSCULAR HEMOGLOBIN 31.2 pg (25-34); MEAN CORPUSCULAR HGB CONC 34.9 g/dl (32-36); MEAN PLATELET VOLUME 9.6 fL (7.4-10.4); MONO % 7.2 %; NEUT % 64.9 %; PLATELET COUNT 224 K/uL (130-400); RED BLOOD COUNT 4.14 M/uL (4.7-6.1); WHITE BLOOD COUNT 6.77 K/uL (4.8-10.8)
[2017-02-18 16:59] LABS: INR 3.9 (0.9-1.1); PROTHROMBIN TIME (PATIENT) 43.6 SECONDS (9.0-12.0)
[2017-02-18 17:01] LABS: ALT/SGPT 52 U/L (12-78); AST/SGOT 32 U/L (15-37); BLOOD UREA NITROGEN 30 mg/dl (7-18); BUN/CREATININE RATIO 22.7 (10-20); CALCIUM 8.8 mg/dl (8.5-10.1); CARBON DIOXIDE 28 mmol/L (21-32); CHLORIDE 103 mmol/L (98-107); GLUCOSE 265 mg/dl (70-99); POTASSIUM 4.8 mmol/L (3.5-5.1); SODIUM 135 mmol/L (136-145)
[2017-02-18 17:06] LABS: ALB/GLOB RATIO 0.9 (0.9-2); ALKALINE PHOSPHATASE 83 U/L (45-117)
[2017-02-18] MEDS ORDERED: ADVIN25/60 INH (19:15)
[2017-02-18] MEDS ORDERED: PRVHFAIN INH (19:15)
[2017-02-18] MEDS ORDERED: ALBUTEROL HFA 8 GM INHALER INH ONE (19:30)
[2017-02-18 19:44] VITALS: BP 116/68; PULSE 68; O2SAT 93
[2017-03-06] MEDS ORDERED: LIRA18IN SQ (14:45)
== END 2017-02-18 19:44 | disposition home or self-care (01) ==
LOC: C.EDB 14:59 → C.EDC 19:44
DX: R06.00 Dyspnea, unspecified (principal); J44.9 Chronic obstructive pulmonary disease, unspecified; I42.9 Cardiomyopathy, unspecified; E11.40 Type 2 diabetes mellitus with diabetic neuropathy, unspecified; K21.9 Gastro-esophageal reflux disease without esophagitis; I10 Essential (primary) hypertension; E78.00 Pure hypercholesterolemia, unspecified; M48.00 Spinal stenosis, site unspecified; Z86.73 Personal history of transient ischemic attack (TIA), and cerebral infarction without residual deficits; Z86.718 Personal history of other venous thrombosis and embolism; Z86.711 Personal history of pulmonary embolism; Z79.01 Long term (current) use of anticoagulants; Z79.4 Long term (current) use of insulin; Z87.891 Personal history of nicotine dependence

== ENCOUNTER 2017-03-03 22:14 | Emergency (ER) | payer OTHER, MEDICARE ==
[~2017-03-03] VITALS: Ht 177.8 cm; Wt 132.2 kg
[~2017-03-03 22:14] MED LIST changes: +ADVIN25/60 INH; +PRVHFAIN INH
[2017-03-03 22:18] VITALS: TEMP 36.7; Ht 177.8 cm; Wt 132.2 kg
[2017-03-03] MEDS ORDERED: HYDROmorphone INJ 1 MG/ML SYR IV STA ×2 (22:32→23:47)
--- NOTE | 2017-03-03 22:50 | EMERGENCY ROOM VISIT NOTE ---
History Report prepared by Kevin: Mildred Chavis Under the Supervision of: Dr. Donald Garay M.D. First contact with patient: 22:27 Chief Complaint: LEG PAIN,LEG INJURY Stated Complaint: SEVERE R LEG PAIN, HX OF DVT History of Present Illness The patient is a 66 year old male who presents to the Emergency Room with complaints of worsening right leg pain throughout the day today. The patient has a history of neuropathy, but states that his pain today is worse than usual. He reports tightness in his calf but denies any calf pain or swelling. He states that his foot is numb and that is also worse than usual. He has been taking morphine BID for the past month for his neuropathy. He states that it is not helping today. He rates his current pain as a 9/10 in severity. The patient has a history of DVT and is on Coumadin. His INR has been WNL. He denies abdominal pain, chest pain, and any recent weight gain. He has some shortness of breath that is chronic and has an appointment with his or rn next week. Source of History: patient Onset: today Position: leg (right) Symptom Intensity: 9/10 Quality: other (tightness) Timing: worsening Associated Symptoms: + numbness (in right foot), No abdominal pain, No chest pain Note: Pt denies any recent weight gain. Review of Systems See HPI for pertinent positives & negatives. A total of 10 systems reviewed and were otherwise negative. Past Medical & Surgical Medical Problems: (1) Cardiomyopathy (2) CVA (cerebral vascular accident) (3) Diabetes (4) Diabetes mellitus (5) DVT (deep venous thrombosis) (6) GERD (gastroesophageal reflux disease) (7) History of acute renal failure (8) HTN (hypertension) (9) Hx of septic shock (10) Hypercholesteremia (11) Neuropathy (12) Pulmonary embolism (13) Spinal stenosis Surgical Problems: (1) Carpal tunnel syndrome, bilateral (2) History of tonsillectomy and adenoidectomy (3) Hx of cholecystectomy (4) Previous back surgery Family History Patient reports no known family medical history. Social History Smoking Status: Former Smoker Drug Use: none Marital Status: Housing Status: lives with family Occupation Status: retired Current/Historical Medications Scheduled Carvedilol (Coreg), 12.5 MG PO BID Digoxin (Digoxin), 0.125 MG PO QPM Duloxetine Hcl (Cymbalta), 20 MG PO QAM Fenofibrate (Fenofibrate), 145 MG PO HS Fluticasone Prop/Salmeterol (Advair Diskus 250/50 60 Dose), 1 PUFFS INH BID Gabapentin (Neurontin), 300 MG PO QPM Gabapentin (Neurontin), 600 MG PO BID Insulin Human Regular (Humulin R), 70 UNITS SQ BID Insulin Human Regular (Humulin R), 85 UNITS SC With Evening Meal Liraglutide (Victoza), 1.2 UNITS SQ QAM Morphine Sulfate (Morphine Sulfate Er), 15 MG PO Q12 Oxycodone Hcl (Oxycodone Hcl), 10 MG PO TID Ropinirole Hydrochloride (Requip), 4 MG PO QID Rosuvastatin Calcium (Crestor), 20 MG PO HS Tamsulosin Hcl (Flomax), 0.4 MG PO QPM Warfarin Sod (Jantoven), 5 MG PO QPM Scheduled PRN Albuterol (Ventolin Hfa), 2 PUFFS INH Q4H PRN for SOB/Wheezing Oxycodone Hcl (Oxycodone Hcl), 1 TAB PO TID PRN for Pain Allergies Coded Allergies: Shellfish (Verified Allergy, Intermediate, HIVES, 03/03/17) Fish Allergy (Verified Allergy, Mild, RASH, 03/03/17) Diphenhydramine (Verified Adverse Reaction, Mild, DISORIENTED, 03/03/17) Physical Exam Vital Signs Date Time Temp Pulse Resp B/P Pulse Ox O2 Delivery O2 Flow Rate FiO2 03/04/17 01:31 74 18 116/66 94 Room Air 03/04/17 00:03 75 18 108/63 94 Room Air 03/03/17 22:18 36.7 79 20 131/77 94 Room Air Physical Exam GENERAL: Patient is uncomfortable appearing and in moderate distress. HEENT: No acute trauma, normocephalic atraumatic, mucous membranes moist, no nasal congestion, no scleral icterus. NECK: No stridor, no adenopathy, no meningismus, trachea is midline. LUNGS: No dyspnea. Clear to auscultation and equal bilaterally. No wheeze, no rhonchi. HEART: Regular rate and rhythm. No murmurs, rubs, gallops appreciated. ABDOMEN: Soft, nontender, bowel sounds positive, no masses appreciated, no peritonitis. BACK: No midline tenderness, no CVA tenderness EXTREMITIES: Normal motion all extremities, no cyanosis, no edema. NEUROLOGIC: Alert and oriented, no acute motor or sensory deficits, no focal weakness, cranial nerves grossly intact. SKIN: No rash, no jaundice, no diaphoresis. Medical Decision & Procedures ER Provider Diagnostic Interpretation: Radiology results and stated below per my review and radiologist interpretation: US VENOUS RIGHT LOWER EXTREMITY: No evidence of deep venous thrombosis. Radiologist: Eliezer Stoddard MD. Laboratory Results 03/03/17 22:41 Red Blood Count 4.02, Mean Corpuscular Volume 89.1, Mean Corpuscular Hemoglobin 31.6, Mean Corpuscular Hemoglobin Concent 35.5, Mean Platelet Volume 9.9, Neutrophils (%) (Auto) 64.4, Lymphocytes (%) (Auto) 24.2, Monocytes (%) (Auto) 6.0, Eosinophils (%) (Auto) 4.7, Basophils (%) (Auto) 0.4, Neutrophils # (Auto) 5.04, Lymphocytes # (Auto) 1.89, Monocytes # (Auto) 0.47, Eosinophils # (Auto) 0.37, Basophils # (Auto) 0.03 03/03/17 22:41 Test 03/03/17 22:41 03/04/17 01:26 White Blood Count 7.82 K/uL (4.8-10.8) Red Blood Count 4.02 M/uL (4.7-6.1) Hemoglobin 12.7 g/dL (14.0-18.0) Hematocrit 35.8 % (42-52) Mean Corpuscular Volume 89.1 fL (80-100) Mean Corpuscular Hemoglobin 31.6 pg (25-34) Mean Corpuscular Hemoglobin Concent 35.5 g/dl (32-36) Platelet Count 231 K/uL (130-400) Mean Platelet Volume 9.9 fL (7.4-10.4) Neutrophils (%) (Auto) 64.4 % Lymphocytes (%) (Auto) 24.2 % Monocytes (%) (Auto) 6.0 % Eosinophils (%) (Auto) 4.7 % Basophils (%) (Auto) 0.4 % Neutrophils # (Auto) 5.04 K/uL (1.4-6.5) Lymphocytes # (Auto) 1.89 K/uL (1.2-3.4) Monocytes # (Auto) 0.47 K/uL (0.11-0.59) Eosinophils # (Auto) 0.37 K/uL (0-0.5) Basophils # (Auto) 0.03 K/uL (0-0.2) RDW Standard Deviation 40.1 fL (36.4-46.3) RDW Coefficient of Variation 12.4 % (11.5-14.5) Immature Granulocyte % (Auto) 0.3 % Immature Granulocyte # (Auto) 0.02 K/uL (0.00-0.02) Prothrombin Time 34.1 SECONDS (9.0-12.0) Prothromb Time International Ratio 3.0 (0.9-1.1) Anion Gap 7.0 mmol/L (3-11) Est Creatinine Clear Calc Drug Dose 60.0 ml/min Estimated GFR () 48.3 Estimated GFR (Non- 41.7 BUN/Creatinine Ratio 16.5 (10-20) Calcium Level 8.3 mg/dl (8.5-10.1) Total Creatine Kinase 223 U/L (39-308) Beta-Hydroxybutyric Acid 1.69 mg/dL (0.2-2.81) Bedside Glucose 354 mg/dl (70-99) Laboratory results as reviewed by me. Medications Administered Medications (Trade) Dose Ordered Sig/Raina Route Start Time Stop Time Status Last Admin Dose Admin Hydromorphone HCl 1 mg 1 mg NOW STAT IV 03/03/17 22:32 03/03/17 22:33 DC 03/03/17 22:43 1 MG Sodium Chloride (Nss 1000ml) 1,000 ml @ 999 mls/hr Q1H1M STAT IV 03/03/17 23:46 03/04/17 00:46 DC 03/04/17 00:00 999 MLS/HR Insulin Human Regular (novoLIN-R U-100 PER UNIT) 10 units NOW STAT IV 03/03/17 23:46 03/03/17 23:47 DC 03/04/17 00:03 10 UNITS Hydromorphone HCl (Dilaudid Inj) 1 mg NOW STAT IV 03/03/17 23:47 03/03/17 23:48 DC 03/04/17 00:00 1 MG Insulin Human Regular 8 units 8 units NOW STAT IV 03/04/17 00:46 03/04/17 00:47 DC 03/04/17 00:46 8 UNITS Sodium Chloride (Nss 500ml) 500 ml @ 999 mls/hr Q31M STAT IV 03/04/17 00:46 03/04/17 01:16 DC 03/04/17 00:51 999 MLS/HR ED Course 2227: The patient was evaluated in room C7. A complete history and physical exam was performed. 2232: Dilaudid 1 mg IV 2340: I reassessed the patient at this time and he is still complaining of pain. 2346: Insulin Human regular 10 units IV, NSS 1000 ml @ 999 mls/hr IV 2347: Dilaudid 1 mg IV 0021: I reevaluated the patient and he is feeling better. I updated him on the results on treatment plan. 0130: I reassessed the patient at this time. He is feeling better and resting comfortably. I discussed the results and treatment plan with the patient. I answered all pertaining questions that he had. He expressed understanding and verbalized agreement. The patient will be discharged home. Medical Decision Differential: DVT, CHF, Arterial Occlusion, Infectious, Joint Effusion, Trauma, Lymphedema, Idiopathic, Trauma, amongst other pathologies entertained. 66 yr old male arrives with increased neuropathy pain of right leg throughout the day. Chronic pain though seems worse than usual today Resolved with IV Dilaudid x 2. Exam is benign without evidence of infection, swelling, compartment syndrome, arterial occlusion. US without evidence DVT. INR therapeutic. Labs reveal significant hyperglycemia without evidence of DKA. Given fluids and IV insulin to get sugars down. Denies any infectious symptoms. With his large insulin requirements daily as it is, I am not surprised it is difficult to get his blood sugars down. Patient notes running low on his chronic pain medications prescription. With it being Easter wknd he will be unable to get it refilled by his PCP thus as he has not had Rx for this in several months seems reasonable writing limited number Oxy. [place] Drug Monitoring Program Search Results: patient reviewed within database Impression Primary Impression: Leg pain, right Additional Impression: Hyperglycemia Scribe Attestation The scribe's documentation has been prepared under my direction and personally reviewed by me in its entirety. I confirm that the note above accurately reflects all work, treatment, procedures, and medical decision making performed by me. Departure Information Dispostion Home / Self-Care Prescriptions Oxycodone Hcl (OXYCODONE HCL) 10 Mg Tab 1 TAB PO TID Y for Pain, #12 TAB Prov: Donald Garay M.D. 03/04/17 Referrals Shade Mandel MD (PCP) Patient Instructions ED Hyperglycemia Diabetic, My [facility] Additional Instructions Monitor your leg for worsening symptoms. Return immediately if severe pain, fevers, rash, swelling, discoloration or other concerns. We are always here to help. Keep leg elevated and avoid allowing your blood sugars to get out of control. You have received a narcotic pain medication prescription. These medications may cause drowsiness and should not be used with other sedative medications. Do not drive, drink alcohol, perform dangerous activities, nor make important decisions after taking these medications. 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 Problem Qualifiers
[2017-03-03 23:01] LABS: BASO % 0.4 %; BASO ABS # 0.03 K/uL (0-0.2); COMPLETE YES; EOS % 4.7 %; HEMATOCRIT 35.8 % (42-52); IG% 0.3 %; LYMPH % 24.2 %; LYMPH ABS # 1.89 K/uL (1.2-3.4); MEAN CELL VOLUME 89.1 fL (80-100); MEAN CORPUSCULAR HEMOGLOBIN 31.6 pg (25-34); MEAN CORPUSCULAR HGB CONC 35.5 g/dl (32-36); MEAN PLATELET VOLUME 9.9 fL (7.4-10.4); NEUT % 64.4 %; PLATELET COUNT 231 K/uL (130-400); RED BLOOD COUNT 4.02 M/uL (4.7-6.1); WHITE BLOOD COUNT 7.82 K/uL (4.8-10.8)
[2017-03-03 23:15] LABS: PROTHROMBIN TIME (PATIENT) 34.1 SECONDS (9.0-12.0)
[2017-03-03 23:42] LABS: BUN/CREATININE RATIO 16.5 (10-20); CALCIUM 8.3 mg/dl (8.5-10.1); CREATININE 1.7 mg/dl (0.60-1.40); POTASSIUM 4.6 mmol/L (3.5-5.1)
[2017-03-03] MEDS ORDERED: NovoLIN-R INSULIN PER UNIT CHARGE IV STA (23:46)
[2017-03-03] MEDS ORDERED: SODIUM CHLORIDE 0.9% 1000ML 1,000 ML IV STA (23:46)
[2017-03-03 23:53] LABS: BETA-HYDROXYBUTYRATE 1.69 mg/dL (0.2-2.81)
[2017-03-04] MEDS ORDERED: SODIUM CHLORIDE 0.9% 500ML 500 ML IV STA (00:46)
[2017-03-04] MEDS ORDERED: NovoLIN-R INSULIN PER UNIT CHARGE IV STA (00:46)
[2017-03-04 01:31] VITALS: BP 116/66; PULSE 74; O2SAT 94
[2017-03-04] MEDS ORDERED: OXYC-164 PO (01:46)
--- NOTE | 2017-03-04 07:14 | DIAGNOSTIC IMAGING REPORT ---
RIGHT LOWER EXTREMITY VENOUS DOPPLER HISTORY: right lower leg pain Right COMPARISON STUDY: None. FINDINGS: There is normal compressibility, flow, and augmentation within the right lower extremity deep venous system. IMPRESSION: No DVT within the right lower extremity Electronically signed by: Daniel Walters M.D. 03/04/2017 7:12 AM Dictated Date/Time: 03/04/2017 7:12 AM
[2017-03-06] MEDS ORDERED: LIRA18IN SQ (14:45)
== END 2017-03-04 01:53 | disposition home or self-care (01) ==
LOC: C.EDB 22:15 → C.EDC 03-04 01:53
DX: M79.604 Pain in right leg (principal); R73.9 Hyperglycemia, unspecified; I42.9 Cardiomyopathy, unspecified; I63.9 Cerebral infarction, unspecified; E11.9 Type 2 diabetes mellitus without complications; I82.409 Acute embolism and thrombosis of unspecified deep veins of unspecified lower extremity; I10 Essential (primary) hypertension; E78.00 Pure hypercholesterolemia, unspecified; G62.9 Polyneuropathy, unspecified; Z87.891 Personal history of nicotine dependence; Z79.4 Long term (current) use of insulin

== ENCOUNTER 2017-03-06 18:28 | Emergency (ER) | payer OTHER, MEDICARE ==
[~2017-03-06] VITALS: Ht 177.8 cm; Wt 129.7 kg
[~2017-03-06 18:28] MED LIST changes: +LIRA18IN SQ
[2017-03-06 18:36] VITALS: TEMP 36.7; Ht 177.8 cm; Wt 129.7 kg
[2017-03-06] MEDS ORDERED: HYDROmorphone INJ 1 MG/ML SYR IM STA ×2 (18:53→19:34)
[2017-03-06] MEDS ORDERED: ONDANSETRON 4MG OD TAB PO STA (18:53)
--- NOTE | 2017-03-06 19:00 | EMERGENCY ROOM VISIT NOTE ---
History Report prepared by Kevin: Gurjit Marie Under the Supervision of: Dr. David Mak D.O. First contact with patient: 18:41 Chief Complaint: LEG PAIN,LEG INJURY Stated Complaint: SEVERE PAIN,RT LEG-KNEE TO ANKLE,LF FOOT History of Present Illness The patient is a 66 year old male who presents to the Emergency Room with complaints of worsening right leg pain beginning a couple years ago. He notes the pain is ongoing and he has been to the ER before with the same symptoms. He was last here in the ER 4 days ago and had an ultrasound with no abnormal findings, and was given Dilaudid. The patient has been treated with Morphine and Hydrocodone with some relief of his pain. He currently follows with pain management. The patient locates the pain in his right lower leg from the knee down, and denies any pain through his thigh. He denies swelling or redness or cold, but reports numbness in his leg which is not new. The patient has not had any recent injuries or falls. The patient reports a history of diabetes, cardiomyopathy, hypertension, and high cholesterol. Dr. Mandel is his PCP in [facility]. Source of History: patient Onset: a couple years ago Position: leg (right) Quality: numbness, other (leg pain) Timing: worsening Modifying Factors (Relieving): other (Morphine and Hydrocodone) Note: The patient denies redness, swelling, and coldness in his legs. Review of Systems See HPI for pertinent positives & negatives. A total of 10 systems reviewed and were otherwise negative. Past Medical & Surgical Medical Problems: (1) Cardiomyopathy (2) CVA (cerebral vascular accident) (3) Diabetes (4) Diabetes mellitus (5) DVT (deep venous thrombosis) (6) GERD (gastroesophageal reflux disease) (7) History of acute renal failure (8) HTN (hypertension) (9) Hx of septic shock (10) Hypercholesteremia (11) Neuropathy (12) Pulmonary embolism (13) Spinal stenosis Surgical Problems: (1) Carpal tunnel syndrome, bilateral (2) History of tonsillectomy and adenoidectomy (3) Hx of cholecystectomy (4) Previous back surgery Family History Patient reports no known family medical history. Social History Smoking Status: Former Smoker Drug Use: none Marital Status: Housing Status: lives with family Occupation Status: retired Current/Historical Medications Scheduled Carvedilol (Coreg), 12.5 MG PO BID Digoxin (Digoxin), 0.125 MG PO QPM Duloxetine Hcl (Cymbalta), 20 MG PO QAM Fenofibrate (Fenofibrate), 145 MG PO HS Fluticasone Prop/Salmeterol (Advair Diskus 250/50 60 Dose), 1 PUFFS INH BID Insulin Human Regular (Humulin R), 70 UNITS SQ BID Insulin Human Regular (Humulin R), 85 UNITS SC With Evening Meal Liraglutide (Victoza), 1.8 UNITS SQ QAM Morphine Sulfate (Morphine Sulfate Er), 15 MG PO Q12 Oxycodone Hcl (Oxycodone Hcl), 10 MG PO TID Ropinirole Hydrochloride (Requip), 4 MG PO QID Rosuvastatin Calcium (Crestor), 20 MG PO HS Tamsulosin Hcl (Flomax), 0.4 MG PO QPM Warfarin Sod (Jantoven), 5 MG PO QPM Scheduled PRN Albuterol (Ventolin Hfa), 2 PUFFS INH Q4H PRN for SOB/Wheezing Allergies Coded Allergies: Shellfish (Verified Allergy, Intermediate, HIVES, 03/03/17) Fish Allergy (Verified Allergy, Mild, RASH, 03/03/17) Diphenhydramine (Verified Adverse Reaction, Mild, DISORIENTED, 03/03/17) Physical Exam Vital Signs Date Time Temp Pulse Resp B/P Pulse Ox O2 Delivery O2 Flow Rate FiO2 03/06/17 22:16 74 18 124/63 93 Room Air 03/06/17 20:34 70 18 117/63 93 Room Air 03/06/17 18:36 36.7 80 20 148/79 95 Room Air Physical Exam GENERAL: Patient is awake alert in no acute distress patient is resting comfortably and showing no signs of anxiety EYES: The conjunctivae are clear. The pupils are round and reactive. EARS, NOSE, MOUTH AND THROAT: The nose is without any evidence of any deformity. Mucous membranes are moist tongue is midline NECK: The neck is nontender and supple. RESPIRATORY: Normal respiratory effort is noted there is no evidence of wheezing rhonchi or rales CARDIOVASCULAR: Regular rate and rhythm noted there no murmurs rubs or gallops normal S1 normal S2 GASTROINTESTINAL: The abdomen is soft. Bowel sounds are present in all quadrants. Abdomen is nontender BACK: No midline tenderness or or step-off noted range of motion in flexion extension as well as rotation no signs of muscle spasm noted MUSCULOSKELETAL/EXTREMITIES: There is palpable tenderness over the right lower leg. No deformities or ecchymosis noted. SKIN: Trace pedal edema bilaterally. Pulses are symmetric. Skin is warm and dry. NEUROLOGIC: Patient is awake alert and oriented x3. Medical Decision & Procedures ER Provider Diagnostic Interpretation: Radiology results as stated below per my review and radiologist interpretation: ULTRASOUND RIGHT LOWER EXTREMITY ARTERIAL; ANKLE-BRACHIAL INDICES FINDINGS: Ankle brachial indices: Right brachial pressure measures 114. The right posterior tibial and dorsalis pedis arteries could not be compressed and ankle brachial indices could not be assessed. Left brachial pressure measures 123. Pressures in the left posterior tibial artery measure 81 for an GALLO of 0.66, and pressures in the left dorsalis pedis artery measure 183 for an GALLO of 1.49. Right lower extremity: There is atherosclerotic plaque and irregularity seen throughout the arteries of the right lower extremity. There are triphasic waveforms seen in the right common femoral artery with velocities measuring up to 130 cm/s. The right profunda femoris artery is patent with velocities measuring up to 82 cm/s. There are triphasic arterial waveforms seen throughout the right superficial femoral artery. Velocities measure up to 147 cm/s. There are triphasic arterial waveforms in the right popliteal artery with velocities measuring up to 87 cm/s. There is three-vessel runoff to the foot. There are elevated velocities identified within the right posterior tibial artery, measuring up to 300 cm/s, suggesting high-grade stenosis. There are blunted arterial waveforms in the distal right popliteal artery. Velocities in the right peroneal artery measure up to 56 cm/s, and velocities within the anterior tibial artery measure up to 109 cm/s. The dorsalis pedis artery is patent with velocities measuring up to 45 cm/s. IMPRESSION: 1. No focal vessel occlusion is seen throughout the arteries of the right lower extremity. 2. There is three-vessel runoff to the foot. 3. Elevated velocities within the right posterior tibial artery suggest high-grade stenosis. 4. Ankle-brachial indices in the right lower extremity could not be assessed. Left lower extremity ankle brachial indices are detailed above. Dictated: 03/06/2017 9:24 PM Transcribed: 03/06/2017 9:51 PM EILEEN_Fabiana Electronically signed by: Aleksandar Sanchez M.D. 03/06/2017 9:55 PM Dictated Date/Time: 03/06/2017 9:24 PM ULTRASOUND RIGHT LOWER EXTREMITY VENOUS FINDINGS: There is no sonographic evidence of deep venous thrombosis identified in the right lower extremity. The common femoral, superficial femoral, and popliteal veins are patent and normally compressible. The greater saphenous vein and the profunda femoris vein at the junction with the common femoral vein are clear. The visualized calf veins are patent. IMPRESSION: There is no sonographic evidence of deep venous thrombosis identified in the right lower extremity. Electronically signed by: Aleksandar Sanchez M.D. 03/06/2017 9:45 PM Dictated Date/Time: 03/06/2017 9:44 PM Medications Administered Medications (Trade) Dose Ordered Sig/Raina Route Start Time Stop Time Status Last Admin Dose Admin Hydromorphone HCl (Dilaudid Inj) 1 mg NOW STAT IM 03/06/17 18:53 03/06/17 18:55 DC 03/06/17 19:03 1 MG Ondansetron HCl (Zofran Odt) 4 mg NOW STAT PO 03/06/17 18:53 03/06/17 18:55 DC 03/06/17 19:03 4 MG Hydromorphone HCl (Dilaudid Inj) 1 mg NOW STAT IM 03/06/17 19:34 03/06/17 19:36 DC 03/06/17 19:40 1 MG ED Course 1849: The patient was evaluated in room B2. A complete history and physical examination were performed. 1852: Ordered Zofran Odt 4 mg PO, and Dilaudid Inj 1 mg IM 1933: Ordered Dilaudid Inj 1 mg IM 5: Upon reevaluation, the patient is doing well. I discussed the results and treatment plan with the patient. He verbalized agreement of the treatment plan. The patient was discharged home. Medical Decision Differential diagnosis: Etiologies such as DVT, musculoskeletal, infection, joint effusion, trauma, lymphedema, idiopathic, CHF, as well as others were entertained. Nursing notes reviewed. Additional history is obtained from the patient's significant other. The patient is a 66-year-old male who presented to the emergency department for an evaluation of right lower extremity pain. The patient has a history of chronic pain in his leg from peripheral neuropathy. He states that this feels similar to his previous chronic pain syndrome however he states his medications are not working as well as he used to. He was seen in our emergency department recently for similar complaints. I reviewed the previous visit as well as the previous laboratory and radiographic studies. The patient's skin is warm and dry. Pulses are symmetric. His pain appears to be mostly over the right leg from the knee down. Ultrasound was obtained to rule out DVT as well as arterial occlusion. He was treated with pain medication in the emergency department and on subsequent reevaluation was feeling much better. He was encouraged to call his primary care physician in the morning to schedule follow-up appointment but also follow-up with his pain management group reevaluation as well. Otherwise she was encouraged to rest and avoid any strenuous activity. He was also encouraged to return to the emergency department immediately if symptoms change worsen or the need arises. Impression Primary Impression: Chronic pain of right lower extremity Additional Impression: Peripheral neuropathy Scribe Attestation The scribe's documentation has been prepared under my direction and personally reviewed by me in its entirety. I confirm that the note above accurately reflects all work, treatment, procedures, and medical decision making performed by me. Departure Information Dispostion Home / Self-Care Referrals Shade Mandel MD (PCP) Patient Instructions My [facility], Neuropathy Peripheral Additional Instructions Call your primary care physician in the morning to schedule a follow-up appointment. Continue all medications as prescribed. Problem Qualifiers Additional Impression: Peripheral neuropathy Peripheral neuropathy type: polyneuropathy, unspecified Qualified Codes: G62.9 - Polyneuropathy, unspecified
--- NOTE | 2017-03-06 21:47 | DIAGNOSTIC IMAGING REPORT ---
ULTRASOUND RIGHT LOWER EXTREMITY VENOUS CLINICAL HISTORY: Right leg pain. COMPARISON STUDY: Right lower extremity venous ultrasound dated 03/03/2017. TECHNIQUE: Real-time, grayscale, and color Doppler sonography of the deep veins of the right lower extremity was performed from the inguinal crease to the calf. Compression and augmentation were utilized. FINDINGS: There is no sonographic evidence of deep venous thrombosis identified in the right lower extremity. The common femoral, superficial femoral, and popliteal veins are patent and normally compressible. The greater saphenous vein and the profunda femoris vein at the junction with the common femoral vein are clear. The visualized calf veins are patent. IMPRESSION: There is no sonographic evidence of deep venous thrombosis identified in the right lower extremity. Electronically signed by: Aleksandar Sanchez M.D. 03/06/2017 9:45 PM Dictated Date/Time: 03/06/2017 9:44 PM
--- NOTE | 2017-03-06 21:52 | DIAGNOSTIC IMAGING REPORT ---
ULTRASOUND RIGHT LOWER EXTREMITY ARTERIAL; ANKLE-BRACHIAL INDICES CLINICAL HISTORY: Right leg pain. COMPARISON STUDY: Right lower extremity arterial ultrasound dated 11/06/2016. TECHNIQUE: Real-time, grayscale, and color Doppler sonography of the arteries of the right lower extremities was performed from the inguinal crease to the foot. Ankle brachial indices were calculated. FINDINGS: Ankle brachial indices: Right brachial pressure measures 114. The right posterior tibial and dorsalis pedis arteries could not be compressed and ankle brachial indices could not be assessed. Left brachial pressure measures 123. Pressures in the left posterior tibial artery measure 81 for an GALLO of 0.66, and pressures in the left dorsalis pedis artery measure 183 for an GALLO of 1.49. Right lower extremity: There is atherosclerotic plaque and irregularity seen throughout the arteries of the right lower extremity. There are triphasic waveforms seen in the right common femoral artery with velocities measuring up to 130 cm/s. The right profunda femoris artery is patent with velocities measuring up to 82 cm/s. There are triphasic arterial waveforms seen throughout the right superficial femoral artery. Velocities measure up to 147 cm/s. There are triphasic arterial waveforms in the right popliteal artery with velocities measuring up to 87 cm/s. There is three-vessel runoff to the foot. There are elevated velocities identified within the right posterior tibial artery, measuring up to 300 cm/s, suggesting high-grade stenosis. There are blunted arterial waveforms in the distal right popliteal artery. Velocities in the right peroneal artery measure up to 56 cm/s, and velocities within the anterior tibial artery measure up to 109 cm/s. The dorsalis pedis artery is patent with velocities measuring up to 45 cm/s. IMPRESSION: 1. No focal vessel occlusion is seen throughout the arteries of the right lower extremity. 2. There is three-vessel runoff to the foot. 3. Elevated velocities within the right posterior tibial artery suggest high-grade stenosis. 4. Ankle-brachial indices in the right lower extremity could not be assessed. Left lower extremity ankle brachial indices are detailed above. Dictated: 03/06/2017 9:24 PM Transcribed: 03/06/2017 9:51 PM EILEEN_Fabiana Electronically signed by: Aleksandar Sanchez M.D. 03/06/2017 9:55 PM Dictated Date/Time: 03/06/2017 9:24 PM
[2017-03-06 22:16] VITALS: BP 124/63; PULSE 74; O2SAT 93
== END 2017-03-06 22:17 | disposition home or self-care (01) ==
LOC: C.EDB 18:29
DX: M79.661 Pain in right lower leg (principal); G62.9 Polyneuropathy, unspecified; E11.9 Type 2 diabetes mellitus without complications; I10 Essential (primary) hypertension; E78.00 Pure hypercholesterolemia, unspecified; K21.9 Gastro-esophageal reflux disease without esophagitis; Z87.81 Personal history of (healed) traumatic fracture; Z86.73 Personal history of transient ischemic attack (TIA), and cerebral infarction without residual deficits; Z86.711 Personal history of pulmonary embolism; Z86.718 Personal history of other venous thrombosis and embolism; Z90.49 Acquired absence of other specified parts of digestive tract; Z98.890 Other specified postprocedural states; Z79.4 Long term (current) use of insulin; Z79.01 Long term (current) use of anticoagulants; Z79.899 Other long term (current) drug therapy; Z88.8 Allergy status to other drugs, medicaments and biological substances; Z91.018 Allergy to other foods

== ENCOUNTER → 2017-03-17 | Outpatient (CLI) | payer OTHER, MEDICARE ==
[~2017-03-17] MED LIST changes: -GABA-113 PO; -NRN/600 PO
--- NOTE | 2017-03-19 04:01 | PULMONARY FUNCTION TEST ---
PULMONARY FUNCTION TEST: SPIROMETRY: Based on ATS criteria, the patient is noted to have moderate obstructive ventilatory disease with no signs of reversibility. LUNG VOLUMES: Mildly elevated RV at 147%. DIFFUSION CAPACITY: Mildly decreased DLCO at 64% with correction based of DLCO to VA ratio. INTERPRETATION: Moderate obstructive ventilatory disease.
== END | disposition home or self-care (01) ==
LOC: C.RC 12:33
PROVIDERS: ATTEND Internal Medicine Critical Care Medicine
DX: J44.9 Chronic obstructive pulmonary disease, unspecified (principal)

== ENCOUNTER 2017-08-01 23:07 | Emergency (ER) | payer MEDICARE, OTHER ==
[~2017-08-01] VITALS: Ht 177.8 cm; Wt 121.5 kg
[2017-08-01 23:14] VITALS: TEMP 36.6; Ht 177.8 cm; Wt 121.5 kg
[2017-08-01] MEDS ORDERED: HYDROmorphone INJ 1 MG/ML SYR IM STA (23:34)
--- NOTE | 2017-08-01 23:39 | EMERGENCY ROOM VISIT NOTE ---
History Report prepared by Kevin: Duke Cline Under the Supervision of: Dr. Donald Garay M.D. 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 The patient states that he was mowing his lawn 12.5 hours ago, and he rolled the online activist accidently. He reports that he was not pinned underneath, and he was able to walk away from it. The patient notes that he hit his coccyx and walking increases his discomfort. He states that he is on Coumadin, and his last INR screening was about a month ago. The patient reports that his tetanus shot is up to date. He notes that he has chronic neuropathy in his leg that requires morphine daily, but it is not helping with his current symptoms. The patient denies knee pain, abdominal pain, neck pain, loss of consciousness, and head injury. Source of History: patient Onset: 5 hours ago Position: leg (left) Quality: other (ecchymosis) Timing: constant Modifying Factors (Worsening): other (walking) Associated Symptoms: No LOC, No neck pain, No abdominal pain Note: Associated symptoms: coccyx pain Denies: knee pain and head injury. Review of Systems See HPI for pertinent positives & negatives. A total of 10 systems reviewed and were otherwise negative. Past Medical & Surgical Medical Problems: (1) Cardiomyopathy (2) CVA (cerebral vascular accident) (3) Diabetes (4) Diabetes mellitus (5) DVT (deep venous thrombosis) (6) GERD (gastroesophageal reflux disease) (7) History of acute renal failure (8) HTN (hypertension) (9) Hx of septic shock (10) Hypercholesteremia (11) Neuropathy (12) Pulmonary embolism (13) Spinal stenosis Surgical Problems: (1) Carpal tunnel syndrome, bilateral (2) History of tonsillectomy and adenoidectomy (3) Hx of cholecystectomy (4) Previous back surgery Family History Patient reports no known family medical history. Social History Smoking Status: Current Every Day Smoker Drug Use: none Marital Status: Housing Status: lives with family Occupation Status: retired Current/Historical Medications Scheduled Carvedilol (Coreg), 12.5 MG PO BID Digoxin (Digoxin), 0.125 MG PO QPM Duloxetine Hcl (Cymbalta), 20 MG PO QAM Fenofibrate (Fenofibrate), 145 MG PO HS Fluticasone Prop/Salmeterol (Advair Diskus 250/50 60 Dose), 1 PUFFS INH BID Insulin Human Regular (Humulin R), 70 UNITS SQ BID Insulin Human Regular (Humulin R), 85 UNITS SC With Evening Meal Liraglutide (Victoza), 1.8 UNITS SQ QAM Morphine Sulfate (Morphine Sulfate Er), 15 MG PO Q12 Oxycodone Hcl (Oxycodone Hcl), 10 MG PO TID Ropinirole Hydrochloride (Requip), 4 MG PO QID Rosuvastatin Calcium (Crestor), 20 MG PO HS Tamsulosin Hcl (Flomax), 0.4 MG PO QPM Warfarin Sod (Jantoven), 5 MG PO QPM Scheduled PRN Albuterol (Ventolin Hfa), 2 PUFFS INH Q4H PRN for SOB/Wheezing Allergies Coded Allergies: Shellfish (Verified Allergy, Intermediate, HIVES, 08/01/17) Fish Allergy (Verified Allergy, Mild, RASH, 08/01/17) Diphenhydramine (Verified Adverse Reaction, Mild, DISORIENTED, 08/01/17) Physical Exam Vital Signs Date Time Temp Pulse Resp B/P (MAP) Pulse Ox O2 Delivery O2 Flow Rate FiO2 08/02/17 00:34 67 16 109/59 96 08/01/17 23:14 36.6 74 20 111/66 95 Room Air Physical Exam GENERAL: Patient is uncomfortable appearing and in mild distress. HEENT: No acute trauma, normocephalic atraumatic, mucous membranes moist, no nasal congestion, no scleral icterus. NECK: No stridor, no adenopathy, no meningismus, trachea is midline. LUNGS: No dyspnea. Mild wheezing, no rhonchi. HEART: Regular rate and rhythm. No murmurs, rubs, gallops appreciated. ABDOMEN: Soft, nontender, bowel sounds positive, no masses appreciated, no peritonitis. BACK: No midline tenderness, no CVA tenderness. Bruise over tailbone with mild tenderness to palpation. EXTREMITIES: Normal motion all extremities, no cyanosis. 6x8cm left distal, inner thigh bruise with mild tenderness to palpation, no crepitus, no evidence of compartment syndrome. Abrasion over the left elbow and right hand. NEUROLOGIC: Alert and oriented, no acute motor or sensory deficits, no focal weakness, cranial nerves grossly intact. SKIN: No rash, no jaundice, no diaphoresis. Medical Decision & Procedures ER Provider Diagnostic Interpretation: X ray results are stated below per my interpretation Coccyx/Sacrum 3 view: Questionable deformity of distal coccyx with questionable cortical disruption, diffuse arthritis changes, lumbar hardware noted Pelvis 1 view: no fracture and no dislocation Left femur 3 view: Distal edema noted, no fracture, no dislocation. Laboratory Results 08/01/17 23:35 Test 08/01/17 23:35 Prothrombin Time 31.3 SECONDS (9.0-12.0) Prothromb Time International Ratio 2.8 (0.9-1.1) Laboratory results as reviewed by me. Medications Administered Medications (Trade) Dose Ordered Sig/Raina Route Start Time Stop Time Status Last Admin Dose Admin Hydromorphone HCl (Dilaudid Inj) 1 mg NOW STAT IM 08/01/17 23:34 08/01/17 23:35 DC 08/01/17 23:45 1 MG Oxycodone HCl (Roxicodone Immediate Rel 5MG Home Pack) 1 homepack UD ONCE PO 08/02/17 00:15 08/02/17 00:16 DC 08/02/17 00:27 1 HOMEPACK ED Course 2329: The patient was evaluated in room B03B. A complete history and physical exam was performed. 2334: Ordered Dilaudid Inj 1mg IM 0015: Ordered Oxycodone HCl 1 homepack PO 0032: Reevaluated the patient. He is feeling better. His hemoglobin was stable. I discussed results, discharge instructions, monitoring symptoms at home, and if worsening symptoms appear, return to the ED: he verbalized understanding and agreement. He will follow up with his PCP. The patient is ready for discharge. Medical Decision 66 yr old male on Coumadin arrives for evaluation s/p fall 12 hours ago off [employer]. Landed on [employer] and had injury to left thigh as well. Contusions. No evidence compartment syndrome, arterial/nerve injury. Imaging questionable fracture coccyx. No abdominal TTP and denies blood in stool. No indication for CT imaging at this time. Head/neck/back benign. HgB stable, INR therapeutic. Given limited area of bruising I do not feel he requires reversal coumadin at this time. Will plan close monitoring of this hematoma and reviewed at length symptoms requiring return with him and . Reviewed standard instructions re coccyx injury. Patient comfortable with this plan. He is chronically on Morphine and thus I have advised if he needs increased narcotics he must review with PCP, though in mean time will send home with Oxy IR for short term relief. Medication Reconcilliation Current Medication List: was personally reviewed by me Blood Pressure Screening Patient's blood pressure: Normal blood pressure Blood pressure disposition: Did not require urgent referral Impression Primary Impression: Fracture of coccyx Additional Impressions: Traumatic hematoma of left thigh Fall Scribe Attestation The scribe's documentation has been prepared under my direction and personally reviewed by me in its entirety. I confirm that the note above accurately reflects all work, treatment, procedures, and medical decision making performed by me. Departure Information Dispostion Home / Self-Care Referrals Anny Moralez .JUSTICE (PCP) Forms HOME CARE DOCUMENTATION FORM, IMPORTANT VISIT INFORMATION Patient Instructions ED Fx Coccyx, ED Hematoma, My [facility] Additional Instructions You have received a narcotic pain medication. These medications may cause drowsiness and should not be used with other sedative medications. Do not drive , drink alcohol, perform dangerous activities, nor make important decisions after taking these medications. 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 Problem Qualifiers
[2017-08-01 23:46] LABS: HEMATOCRIT 40.1 % (42-52)
[2017-08-01 23:56] LABS: INR 2.8 (0.9-1.1); PROTHROMBIN TIME (PATIENT) 31.3 SECONDS (9.0-12.0)
[2017-08-02] MEDS ORDERED: OXYCODONE IR HOME PACK PO ONE (00:15)
[2017-08-02 00:34] VITALS: BP 109/59; PULSE 67; O2SAT 96
--- NOTE | 2017-08-02 06:37 | DIAGNOSTIC IMAGING REPORT ---
PELVIS 1 OR 2 VIEW ROUTINE CLINICAL HISTORY: Pelvic pain status post trauma COMPARISON STUDY: No previous studies for comparison. FINDINGS: Postsurgical changes are present within the lumbar spine. There are mild arthritic changes present within the hips. No acute fractures are visualized. There is no SI joint diastases. There is no symphysis diastases. IMPRESSION: No fractures identified. Electronically signed by: Ortiz Pederson M.D. 08/02/2017 6:36 AM Dictated Date/Time: 08/02/2017 6:35 AM
--- NOTE | 2017-08-02 06:38 | DIAGNOSTIC IMAGING REPORT ---
LEFT FEMUR 4 VIEWS ROUTINE CLINICAL HISTORY: Left thigh pain status post trauma COMPARISON: None. DISCUSSION: There are vascular calcifications present. No acute fractures or dislocations are visualized. Degenerative changes are present within the knee. IMPRESSION: No acute fractures identified. Electronically signed by: Ortiz Pederson M.D. 08/02/2017 6:37 AM Dictated Date/Time: 08/02/2017 6:36 AM
--- NOTE | 2017-08-02 06:39 | DIAGNOSTIC IMAGING REPORT ---
SACRUM COCCYX MIN 2 VIEWS CLINICAL HISTORY: Sacral pain status post trauma COMPARISON STUDY: No previous studies for comparison. FINDINGS: Postsurgical changes are present within the lower lumbar spine. On the lateral view, there is minimal age-indeterminate irregularity the sacrococcygeal junction. IMPRESSION: Minimal age-indeterminate anterior cortical irregularity at the sacrococcygeal junction. Electronically signed by: Ortiz Pederson M.D. 08/02/2017 6:38 AM Dictated Date/Time: 08/02/2017 6:37 AM
== END 2017-08-02 00:34 | disposition home or self-care (01) ==
LOC: C.EDB 23:10
DX: S32.2XXA Fracture of coccyx, initial encounter for closed fracture (principal); S70.12XA Contusion of left thigh, initial encounter; W28.XXXA Contact with powered lawn mower, initial encounter; Y93.H2 Activity, gardening and landscaping; S30.0XXA Contusion of lower back and pelvis, initial encounter; S50.312A Abrasion of left elbow, initial encounter; S60.511A Abrasion of right hand, initial encounter; E11.40 Type 2 diabetes mellitus with diabetic neuropathy, unspecified; I42.9 Cardiomyopathy, unspecified; I10 Essential (primary) hypertension; K21.9 Gastro-esophageal reflux disease without esophagitis; E78.5 Hyperlipidemia, unspecified; M48.00 Spinal stenosis, site unspecified; G56.03 Carpal tunnel syndrome, bilateral upper limbs; F17.200 Nicotine dependence, unspecified, uncomplicated; Z86.718 Personal history of other venous thrombosis and embolism; Z86.73 Personal history of transient ischemic attack (TIA), and cerebral infarction without residual deficits; Z86.711 Personal history of pulmonary embolism; Z79.01 Long term (current) use of anticoagulants; Z79.4 Long term (current) use of insulin

== ENCOUNTER 2017-11-22 18:26 | Emergency (ER) | payer OTHER, MEDICARE ==
[~2017-11-22] VITALS: Ht 177.8 cm; Wt 106.4 kg
[~2017-11-22 18:26] MED LIST changes: -PRVHFAIN INH
[2017-11-22 18:35] VITALS: TEMP 37.1; Ht 177.8 cm; Wt 106.4 kg
[2017-11-22] MEDS ORDERED: OXYCODONE HCL IR 5 MG TAB (IMMEDIATE RELEASE) PO STA (18:48)
--- NOTE | 2017-11-22 18:54 | EMERGENCY ROOM VISIT NOTE ---
History Report prepared by Kevin: Cindy Singleton Under the Supervision of: Isidro OrozcoO. First contact with patient: 18:38 Chief Complaint: RIB PAIN Stated Complaint: FELL 2WKS AGO, LT SIDE RIB PAIN History of Present Illness The patient is a 67 year old male who presents to the Emergency Room with complaints of worsening left sided rib pain. The patient reports he fell two weeks ago. He states he was bending down to pick something up when he fell forward. The patient states he caught himself with his left hand. He notes some wrist pain and slight shortness of breath but denies any nausea, abdominal pain , back pain, vomiting, chest pain, or trouble moving his bowels. He reports his left rib was sore after he fell and has been getting worse over the past two weeks. The patient denies seeing anyone for his pain yet. The patient takes morphine for his neuropathy. Source of History: patient Onset: 2 weeks ago Position: other (rib) Quality: other (pain) Timing: worsening Associated Symptoms: + SOB, No chest pain, No nausea, No vomiting, No abdominal pain, No back pain Review of Systems See HPI for pertinent positives & negatives. A total of 10 systems reviewed and were otherwise negative. Past Medical & Surgical Medical Problems: (1) Cardiomyopathy (2) CVA (cerebral vascular accident) (3) Diabetes (4) Diabetes mellitus (5) DVT (deep venous thrombosis) (6) GERD (gastroesophageal reflux disease) (7) History of acute renal failure (8) HTN (hypertension) (9) Hx of septic shock (10) Hypercholesteremia (11) Neuropathy (12) Pulmonary embolism (13) Spinal stenosis Surgical Problems: (1) Carpal tunnel syndrome, bilateral (2) History of tonsillectomy and adenoidectomy (3) Hx of cholecystectomy (4) Previous back surgery Family History Patient reports no known family medical history. Social History Smoking Status: Current Every Day Smoker Drug Use: none Marital Status: Housing Status: lives with family Occupation Status: retired Current/Historical Medications Scheduled Carvedilol (Coreg), 12.5 MG PO BID Digoxin (Digoxin), 0.125 MG PO QPM Duloxetine HCl (Cymbalta), 30 MG PO QAM Duloxetine Hcl (Cymbalta), 60 MG PO QPM Fenofibrate (Fenofibrate), 145 MG PO HS Hydromorphone Hcl (Dilaudid), 4 MG PO TID Insulin Human Regular (Humulin R), 75 UNITS SQ BID Insulin Human Regular (Humulin R), 110 UNITS SC QPM Liraglutide (Victoza), 1.8 UNITS SQ QAM Lisinopril (Zestril), 20 MG PO BID Metformin Hcl (Metformin Hcl Er), 500 MG PO UD Morphine Sulfate (Morphine Sulfate Er), 30 MG PO BID Nortriptyline (Pamelor), 25 MG PO HS Ropinirole (Requip), 4 MG PO TID Rosuvastatin Calcium (Crestor), 20 MG PO HS Tamsulosin Hcl (Flomax), 0.4 MG PO QPM Warfarin Sod (Jantoven), 4 MG PO DAILY Scheduled PRN Oxycodone Immediate Rel Tab (Roxicodone Ir), 1-2 TAB PO Q4H PRN for Severe Pain Allergies Coded Allergies: Shellfish (Verified Allergy, Intermediate, HIVES, 11/22/17) Fish Allergy (Verified Allergy, Mild, RASH, 11/22/17) Diphenhydramine (Verified Adverse Reaction, Mild, DISORIENTED, 11/22/17) Physical Exam Vital Signs Date Time Temp Pulse Resp B/P (MAP) Pulse Ox O2 Delivery O2 Flow Rate FiO2 11/22/17 21:53 81 16 121/67 94 11/22/17 19:42 77 16 119/64 92 Room Air 11/22/17 18:35 37.1 85 20 113/54 93 Room Air Physical Exam GENERAL: Patient is awake, alert, and in no acute distress. Patient is resting comfortably and showing no signs of anxiety EYES: The conjunctivae are clear. The pupils are round and reactive. EARS, NOSE, MOUTH AND THROAT: The nose is without any evidence of any deformity. Mucous membranes are moist tongue is midline NECK: The neck is nontender and supple. RESPIRATORY: Normal respiratory effort is noted there is no evidence of wheezing rhonchi or rales CARDIOVASCULAR: Regular rate and rhythm noted there no murmurs rubs or gallops normal S1 normal S2 GASTROINTESTINAL: The abdomen is soft. Bowel sounds are present in all quadrants. Abdomen is nontender BACK: No midline tenderness or or step-off noted range of motion in flexion extension as well as rotation no signs of muscle spasm noted MUSCULOSKELETAL/EXTREMITIES: Tenderness over left chest wall, splinting helps the pain. There is no evidence of gross deformity full range of motion is noted in the hips and shoulders SKIN: There is no obvious evidence of any rash. There are no petechiae, pallor or cyanosis noted. NEUROLOGIC: Patient is awake alert and oriented x3. Medical Decision & Procedures ER Provider Diagnostic Interpretation: Radiology results as stated below per my review and radiologist interpretation: L RIBS UNILATERAL WITH PA CHEST FINDINGS: Cardiomediastinal and hilar silhouettes are within normal limits. No pneumothorax, pleural effusion, focal airspace consolidation or overt pulmonary edema. Degenerative changes are seen within the bilateral shoulders. No acute or displaced rib fracture identified. Partially imaged fusion hardware of the lumbar spine. Multilevel degenerative changes of the thoracic and lumbar spine are noted. IMPRESSION: 1. No acute cardiopulmonary process. 2. No acute rib fracture identified. The above report was generated using voice recognition software. It may contain grammatical, syntax or spelling errors. Electronically signed by: Marlon Salazar M.D. Medications Administered Medications (Trade) Dose Ordered Sig/Raina Route Start Time Stop Time Status Last Admin Dose Admin Oxycodone HCl (Roxicodone Immediate Rel Tab) 10 mg NOW STAT PO 11/22/17 18:48 11/22/17 18:49 DC 11/22/17 19:04 10 MG Oxycodone HCl (Roxicodone Immediate Rel 5MG Home Pack) 1 homepack UD ONCE PO 11/22/17 20:30 11/22/17 20:31 DC 11/22/17 21:48 1 HOMEPACK ED Course 1843: The patient was evaluated in room B6. A complete history and physical examination were performed. 1847: Ordered Oxycodone HCl 10 mg PO. 1939: Updated the patient on his test results. 2029: Ordered Oxycodone HCl 1 homepack PO. 2042: Upon reevaluation, the patient is resting comfortably. I discussed the results and treatment plan with him. He verbalized agreement of the treatment plan. The patient was discharged home. Medical Decision Differential diagnosis: Etiologies such as fracture, dislocation, intra-abdominal, pneumothorax, intrathoracic , intracranial, neurologic, as well as other traumatic pathologies were entertained. Nursing notes reviewed. The patient is a 67-year-old male who presented to the emergency department after a fall. He injured the left lower chest wall. The pain was reproducible and improved with splinting. Clinically I think the patient does have a clinical rib fracture. The patient was treated with pain medication in the emergency department. He does take anticoagulation but his vital signs and his abdominal exam would not be consistent with an intra-abdominal injury. The patient's injury did not occur acutely. I discussed the patient's review graphic studies with him. He was encouraged to continue all medications as prescribed. Otherwise he was encouraged to follow-up with his family doctor for further evaluation and return to the emergency department immediately if symptoms change worsen or the need arises. Medication Reconcilliation Current Medication List: was personally reviewed by me Blood Pressure Screening Patient's blood pressure: Normal blood pressure Impression Primary Impression: Chest wall contusion Scribe Attestation The scribe's documentation has been prepared under my direction and personally reviewed by me in its entirety. I confirm that the note above accurately reflects all work, treatment, procedures, and medical decision making performed by me. Departure Information Dispostion Home / Self-Care Prescriptions Oxycodone Immediate Rel Tab (ROXICODONE IR) 5 Mg Tab 1-2 TAB PO Q4H Y for Severe Pain, #24 TAB Prov: David Mak, DO 11/22/17 Referrals Anny Moralez PA-C (PCP) Forms HOME CARE DOCUMENTATION FORM, IMPORTANT VISIT INFORMATION, WORK / SCHOOL INSTRUCTIONS Patient Instructions ED Contusion Chest Wall, My [facility] Additional Instructions Continue all medications as prescribed. Rest and avoid any strenuous activity. Follow-up with your family this week for reevaluation. Return to the emergency department immediately if symptoms change worsen or the need arises. Problem Qualifiers Primary Impression: Chest wall contusion Encounter type: initial encounter Laterality: left Qualified Codes: S20.212A - Contusion of left front wall of thorax, initial encounter
[2017-11-22] MEDS ORDERED: HYDR4TAB2 PO (19:17)
[2017-11-22] MEDS ORDERED: MORP1CAP96 PO (19:17)
[2017-11-22] MEDS ORDERED: ROPI4TAB3 PO (19:17)
[2017-11-22] MEDS ORDERED: CYM/30 PO (19:17)
[2017-11-22] MEDS ORDERED: METF1TAB85 PO (19:17)
[2017-11-22] MEDS ORDERED: NORT25CA PO (19:17)
[2017-11-22] MEDS ORDERED: LISI-725 PO (19:17)
[2017-11-22] MEDS ORDERED: WARF4TAB8 PO (19:17)
[2017-11-22] MEDS ORDERED: DULO60CA44 PO (19:17)
--- NOTE | 2017-11-22 19:55 | DIAGNOSTIC IMAGING REPORT ---
L RIBS UNILATERAL WITH PA CHEST HISTORY: 67 years-old Male fall acute left rib pain status post fall COMPARISON: Chest radiographs 02/18/2017 TECHNIQUE: PA view the chest with 6 views of the left ribs FINDINGS: Cardiomediastinal and hilar silhouettes are within normal limits. No pneumothorax, pleural effusion, focal airspace consolidation or overt pulmonary edema. Degenerative changes are seen within the bilateral shoulders. No acute or displaced rib fracture identified. Partially imaged fusion hardware of the lumbar spine. Multilevel degenerative changes of the thoracic and lumbar spine are noted. IMPRESSION: 1. No acute cardiopulmonary process. 2. No acute rib fracture identified. The above report was generated using voice recognition software. It may contain grammatical, syntax or spelling errors. Electronically signed by: Marlon Salazar M.D. 11/22/2017 7:54 PM Dictated Date/Time: 11/22/2017 7:51 PM
[2017-11-22] MEDS ORDERED: OXYCODONE IR HOME PACK PO ONE (20:30)
[2017-11-22] MEDS ORDERED: OXYC1TAB3 PO (20:37)
[2017-11-22 21:53] VITALS: BP 121/67; PULSE 81; O2SAT 94
== END 2017-11-22 21:50 | disposition home or self-care (01) ==
LOC: C.EDB 18:28
DX: S20.212D Contusion of left front wall of thorax, subsequent encounter (principal); X58.XXXD Exposure to other specified factors, subsequent encounter; E11.43 Type 2 diabetes mellitus with diabetic autonomic (poly)neuropathy; I42.9 Cardiomyopathy, unspecified; Z86.73 Personal history of transient ischemic attack (TIA), and cerebral infarction without residual deficits; Z86.718 Personal history of other venous thrombosis and embolism; K21.9 Gastro-esophageal reflux disease without esophagitis; I10 Essential (primary) hypertension; Z86.711 Personal history of pulmonary embolism; E78.00 Pure hypercholesterolemia, unspecified; Z90.49 Acquired absence of other specified parts of digestive tract; F17.210 Nicotine dependence, cigarettes, uncomplicated; Z79.899 Other long term (current) drug therapy; Z79.4 Long term (current) use of insulin; Z79.01 Long term (current) use of anticoagulants

== ENCOUNTER 2018-01-17 19:19 | Emergency (ER) | payer OTHER, MEDICARE ==
[~2018-01-17] VITALS: Ht 177.8 cm; Wt 129.0 kg
[~2018-01-17 19:19] MED LIST changes: -ADVIN25/60 INH; +CYM/30 PO; -DULO-24 PO; +DULO60CA44 PO; +HYDR4TAB2 PO; +LISI-725 PO; +METF1TAB85 PO; +MORP1CAP96 PO; -MORP1TAB11 PO; +NORT25CA PO; -OXYC-164 PO; +OXYC1TAB3 PO; +ROPI4TAB3 PO; -RQP/2 PO; +WARF4TAB8 PO; -WARF5TAB7 PO
[2018-01-17 19:21] VITALS: TEMP 36.7; Ht 177.8 cm; Wt 129.0 kg
[2018-01-17] MEDS ORDERED: HYDROmorphone INJ 1 MG/ML SYR IV STA ×2 (19:52→21:33)
--- NOTE | 2018-01-17 20:35 | EMERGENCY ROOM VISIT NOTE ---
History First contact with patient: 19:38 Chief Complaint: SHOULDER PAIN Stated Complaint: EXTREME PAIN, STIFFNESS IN B/L SHOULDERS- HX PMR History of Present Illness The patient is a 67 year old male who presents to the Emergency Room with complaints of joint pain/stiffness. The patient states that for the past 2-3 days, he has had pain and stiffness in all of his joints. He states the pain is primarily in both of his shoulders, but he also has pain in his knees, wrists and neck. He was diagnosed with polymyalgia rheumatica 4-5 years ago. He states that he took prednisone for several years and weaned off of this 1.5 years ago. He has been doing well since then and has not seen rheumatology recently. He states these symptoms feel exactly like when he had a flareup of polymyalgia rheumatica in the past. He has not been taking any new medications at home, as he takes narcotics daily for chronic painful neuropathy. He rates his discomfort a 9/10. He denies any chest pain or shortness of breath. He reports a history of cardiomyopathy but states that his recent checkup visits have been okay. 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 They recommended that he come to the ED for evaluation. He denies any fever/chills or recent illness. Review of Systems A complete 10 point review of systems was reviewed with the patient with pertinent positives and negatives as per history of present illness. All else were negative. Past Medical/Surgical History Medical Problems: (1) Cardiomyopathy (2) CVA (cerebral vascular accident) (3) Diabetes (4) Diabetes mellitus (5) DVT (deep venous thrombosis) (6) GERD (gastroesophageal reflux disease) (7) History of acute renal failure (8) HTN (hypertension) (9) Hx of septic shock (10) Hypercholesteremia (11) Neuropathy (12) Pulmonary embolism (13) Spinal stenosis Surgical Problems: (1) Carpal tunnel syndrome, bilateral (2) History of tonsillectomy and adenoidectomy (3) Hx of cholecystectomy (4) Previous back surgery Family History Patient reports no known family medical history. Social History Smoking Status: Current Every Day Smoker Drug Use: none Marital Status: Housing Status: lives with family Occupation Status: retired Current/Historical Medications Scheduled Carvedilol (Coreg), 12.5 MG PO BID Digoxin (Digoxin), 0.125 MG PO QPM Duloxetine HCl (Cymbalta), 30 MG PO QAM Duloxetine Hcl (Cymbalta), 60 MG PO QPM Fenofibrate (Fenofibrate), 145 MG PO HS Hydromorphone Hcl (Dilaudid), 4 MG PO TID Insulin Human Regular (Humulin R), 75 UNITS SQ BID Insulin Human Regular (Humulin R), 110 UNITS SC QPM Liraglutide (Victoza), 1.8 UNITS SQ QAM Lisinopril (Zestril), 20 MG PO DAILY Metformin Hcl (Metformin Hcl Er), 500 MG PO BID Morphine Sulfate (Morphine Sulfate Er), 30 MG PO BID Nortriptyline (Pamelor), 25 MG PO HS Prednisone (Prednisone), 50 MG PO DAILY Ropinirole (Requip), 4 MG PO TID Rosuvastatin Calcium (Crestor), 20 MG PO HS Tamsulosin Hcl (Flomax), 0.4 MG PO QPM Warfarin Sod (Jantoven), 4 MG PO DAILY Physical Exam Vital Signs Date Time Temp Pulse Resp B/P (MAP) Pulse Ox O2 Delivery O2 Flow Rate FiO2 01/17/18 21:48 78 18 122/66 93 Room Air 01/17/18 20:46 78 18 112/64 91 Room Air 01/17/18 19:21 36.7 84 18 119/73 93 Room Air Physical Exam VITALS: Vitals are noted on the nurse's note and reviewed by myself. Vital signs stable. GENERAL: This is a 67-year-old male, in no acute distress, nondiaphoretic, well- developed well-nourished. SKIN: The skin was without rashes. EARS: External auditory canals clear, tympanic membranes pearly plascencia without erythema or effusion bilaterally. EYES: Pupils equal round and reactive to light and accommodation. MOUTH: Mucous membranes moist. Tonsils are not enlarged. Pharynx without erythema or exudate. NECK: Supple without nuchal rigidity. No lymphadenopathy. HEART: Regular rate and rhythm without murmurs gallops or rubs. LUNGS: Clear to auscultation bilaterally without wheezes, rales or rhonchi. ABDOMEN: Positive bowel sounds x 4. Soft, nontender to palpation. MUSCULOSKELETAL: No tenderness to palpation. There is decreased range of motion throughout all joints secondary to patient discomfort. NEURO: Patient was alert and oriented to person place and time. Normal sensation. No focal neurological deficits. Medical Decision & Procedures ER Provider Diagnostic Interpretation: CHEST ONE VIEW PORTABLE CLINICAL HISTORY: Bilateral shoulder pain. Joint pains. COMPARISON STUDY: Chest radiograph February 18, 2017. FINDINGS: No pneumothorax or pleural effusion is noted. There is no consolidation or evidence for pulmonary edema. Right hilar prominence is unchanged since exam of August 07, 2015 and due to normal vessels. Cardiomediastinal silhouette is normal. There is no evidence for pulmonary edema. IMPRESSION: No acute cardiopulmonary findings. Stable mild interstitial thickening which is likely chronic. Laboratory Results 01/17/18 20:30 Red Blood Count 4.36, Mean Corpuscular Volume 93.8, Mean Corpuscular Hemoglobin 33.3, Mean Corpuscular Hemoglobin Concent 35.5, Mean Platelet Volume 9.4, Neutrophils (%) (Auto) 66.0, Lymphocytes (%) (Auto) 20.4, Monocytes (%) (Auto) 6.3, Eosinophils (%) (Auto) 7.0, Basophils (%) (Auto) 0.2, Neutrophils # (Auto) 5.64, Lymphocytes # (Auto) 1.74, Monocytes # (Auto) 0.54, Eosinophils # (Auto) 0.60, Basophils # (Auto) 0.02 01/17/18 20:30 Test 01/17/18 20:30 White Blood Count 8.55 K/uL (4.8-10.8) Red Blood Count 4.36 M/uL (4.7-6.1) Hemoglobin 14.5 g/dL (14.0-18.0) Hematocrit 40.9 % (42-52) Mean Corpuscular Volume 93.8 fL (80-100) Mean Corpuscular Hemoglobin 33.3 pg (25-34) Mean Corpuscular Hemoglobin Concent 35.5 g/dl (32-36) Platelet Count 226 K/uL (130-400) Mean Platelet Volume 9.4 fL (7.4-10.4) Neutrophils (%) (Auto) 66.0 % Lymphocytes (%) (Auto) 20.4 % Monocytes (%) (Auto) 6.3 % Eosinophils (%) (Auto) 7.0 % Basophils (%) (Auto) 0.2 % Neutrophils # (Auto) 5.64 K/uL (1.4-6.5) Lymphocytes # (Auto) 1.74 K/uL (1.2-3.4) Monocytes # (Auto) 0.54 K/uL (0.11-0.59) Eosinophils # (Auto) 0.60 K/uL (0-0.5) Basophils # (Auto) 0.02 K/uL (0-0.2) RDW Standard Deviation 45.0 fL (36.4-46.3) RDW Coefficient of Variation 13.2 % (11.5-14.5) Immature Granulocyte % (Auto) 0.1 % Immature Granulocyte # (Auto) 0.01 K/uL (0.00-0.02) Erythrocyte Sedimentation Rate 19 mm/hr (0-14) Anion Gap 3.0 mmol/L (3-11) Est Creatinine Clear Calc Drug Dose 65.4 ml/min Estimated GFR () 54.9 Estimated GFR (Non- 47.4 BUN/Creatinine Ratio 18.6 (10-20) Calcium Level 8.7 mg/dl (8.5-10.1) Total Bilirubin 0.3 mg/dl (0.2-1) Aspartate Amino Transf (AST/SGOT) 21 U/L (15-37) Alanine Aminotransferase (ALT/SGPT) 42 U/L (12-78) Alkaline Phosphatase 77 U/L (45-117) Total Creatine Kinase 165 U/L (39-308) Troponin I < 0.015 ng/ml (0-0.045) C-Reactive Protein 1.20 mg/dl (0-0.29) Total Protein 6.8 gm/dl (6.4-8.2) Albumin 3.1 gm/dl (3.4-5.0) Globulin 3.7 gm/dl (2.5-4.0) Albumin/Globulin Ratio 0.8 (0.9-2) Digoxin Level 0.6 ng/ml (0.8-2.0) Medications Administered Medications (Trade) Dose Ordered Sig/Raina Route Start Time Stop Time Status Last Admin Dose Admin Hydromorphone HCl (Dilaudid Inj) 1 mg NOW STAT IV 01/17/18 19:52 01/17/18 19:54 DC 01/17/18 19:52 1 MG Hydromorphone HCl (Dilaudid Inj) 1 mg NOW STAT IV 01/17/18 21:33 01/17/18 21:35 DC 01/17/18 21:48 1 MG Dexamethasone Sodium Phosphate (Decadron Inj) 10 mg NOW STAT IV 01/17/18 21:33 01/17/18 21:35 DC 01/17/18 21:48 10 MG ECG Per My Interpretation Indication: other Rate (beats per minute): 76 Rhythm: normal sinus Findings: no acute ischemic change, no ectopy Medical Decision Differential diagnosis includes polymyalgia rheumatica, rheumatoid condition, ACS, pneumonia, among others. The patient is a 67-year-old man who presents today complaining of joint pain. Labs revealed no leukocytosis or concerning anemia. Creatinine mildly elevated at 1.5 which is baseline for the patient. Troponin 1 was negative. CRP and sedimentation rate found to be mildly elevated. Patient states the symptoms feel exactly like his previous flareup of polymyalgia rheumatica. There does not appear to be any infectious source of his pain and I do feel it is reasonable to treat him for presumed PMR. Patient was given a dose of IV Decadron and will be placed on a short burst of prednisone. Case management spoke with the patient and will arrange follow-up with rheumatology in a reasonable time period. The patient was agreeable to this. He understands to return if he has any worsening or new/concerning symptoms. The patient was independently evaluated by Dr. Tolentino, ED attending physician, who agreed with my assessment and treatment plan. Based on the patient's presentation and work up, I feel the patient is stable for outpatient treatment. The patient was educated to return to the emergency department for any worsening of their current condition or new/concerning symptoms. He will follow up with rheumatology. Medication Reconcilliation Current Medication List: was personally reviewed by me Blood Pressure Screening Patient's blood pressure: Normal blood pressure Impression Primary Impression: Joint pain Departure Information Dispostion Home / Self-Care Condition GOOD Prescriptions Prednisone (Prednisone) 50 Mg Tab 50 MG PO DAILY for 4 Days, #4 TAB Prov: Shanice Schofield .JUSTICE 01/17/18 Referrals Anny Moralez .JUSTICE (PCP) Patient Instructions My [facility] Additional Instructions Prednisone as prescribed. Be aware that this medication can affect your blood sugars. Take this medication in the morning. Case management will contact rheumatology in the morning to arrange follow-up. Follow-up with them as scheduled. Return to the emergency department with any worsening or new/concerning symptoms.
[2018-01-17 20:38] LABS: BASO % 0.2 %; BASO ABS # 0.02 K/uL (0-0.2); HEMATOCRIT 40.9 % (42-52); HEMOGLOBIN 14.5 g/dL (14.0-18.0); IG# 0.01 K/uL (0.00-0.02); LYMPH % 20.4 %; LYMPH ABS # 1.74 K/uL (1.2-3.4); MEAN CELL VOLUME 93.8 fL (80-100); MEAN CORPUSCULAR HEMOGLOBIN 33.3 pg (25-34); MEAN CORPUSCULAR HGB CONC 35.5 g/dl (32-36); MEAN PLATELET VOLUME 9.4 fL (7.4-10.4); MONO % 6.3 %; MONO ABS # 0.54 K/uL (0.11-0.59); NEUT ABS # 5.64 K/uL (1.4-6.5); PLATELET COUNT 226 K/uL (130-400); RED CELL DISTRIBUTION WIDTH CV 13.2 % (11.5-14.5); WHITE BLOOD COUNT 8.55 K/uL (4.8-10.8)
[2018-01-17 20:56] LABS: ALBUMIN 3.1 gm/dl (3.4-5.0); ALT/SGPT 42 U/L (12-78); BLOOD UREA NITROGEN 28 mg/dl (7-18); CALCIUM 8.7 mg/dl (8.5-10.1); CARBON DIOXIDE 27 mmol/L (21-32); CREATININE 1.52 mg/dl (0.60-1.40); GLUCOSE 135 mg/dl (70-99); POTASSIUM 5.6 mmol/L (3.5-5.1); SODIUM 138 mmol/L (136-145)
[2018-01-17 21:00] LABS: ALKALINE PHOSPHATASE 77 U/L (45-117); AST/SGOT 21 U/L (15-37); TOTAL PROTEIN 6.8 gm/dl (6.4-8.2)
--- NOTE | 2018-01-17 21:17 | DIAGNOSTIC IMAGING REPORT ---
CHEST ONE VIEW PORTABLE CLINICAL HISTORY: Bilateral shoulder pain. Joint pains. COMPARISON STUDY: Chest radiograph February 18, 2017. FINDINGS: No pneumothorax or pleural effusion is noted. There is no consolidation or evidence for pulmonary edema. Right hilar prominence is unchanged since exam of August 07, 2015 and due to normal vessels. Cardiomediastinal silhouette is normal. There is no evidence for pulmonary edema. IMPRESSION: No acute cardiopulmonary findings. Stable mild interstitial thickening which is likely chronic. Electronically signed by: Brayden Bansal M.D. 01/17/2018 9:16 PM Dictated Date/Time: 01/17/2018 9:15 PM
[2018-01-17] MEDS ORDERED: DEXAMETHASONE SOD INJ 4 MG/ML VIAL IV STA (21:33)
[2018-01-17 21:48] VITALS: BP 122/66; PULSE 78; O2SAT 93
[2018-01-17] MEDS ORDERED: PRED50TA PO (21:56)
--- NOTE | 2018-01-18 17:45 | EMERGENCY ROOM VISIT NOTE ---
ED Visit Note First contact with patient: 19:38 I reviewed the patient's past medical history, medications, and visit nursing notes. I discussed the case with the physician assistant golf course superintendent, examined the patient, and agree with the findings and plan as documented in the physician assistants note.
== END 2018-01-17 22:16 | disposition home or self-care (01) ==
LOC: C.EDB 19:21 → C.EDC 22:16
DX: M25.50 Pain in unspecified joint (principal); M35.3 Polymyalgia rheumatica; E11.40 Type 2 diabetes mellitus with diabetic neuropathy, unspecified; Z79.899 Other long term (current) drug therapy; I42.9 Cardiomyopathy, unspecified; Z86.73 Personal history of transient ischemic attack (TIA), and cerebral infarction without residual deficits; Z86.718 Personal history of other venous thrombosis and embolism; K21.9 Gastro-esophageal reflux disease without esophagitis; E78.00 Pure hypercholesterolemia, unspecified; Z90.49 Acquired absence of other specified parts of digestive tract; F17.210 Nicotine dependence, cigarettes, uncomplicated; Z79.4 Long term (current) use of insulin; Z79.01 Long term (current) use of anticoagulants

== ENCOUNTER 2018-01-24 17:01 | Emergency (ER) | payer OTHER, MEDICARE ==
[~2018-01-24] VITALS: Ht 177.8 cm; Wt 126.0 kg
[~2018-01-24 17:01] MED LIST changes: -CYM/30 PO; -DULO60CA44 PO; +FENO145T24 PO; -FENO1TAB24 PO; -HYDR4TAB2 PO; -LISI-725 PO; -LNX125 PO; -METF1TAB85 PO; -MORP1CAP96 PO; -NORT25CA PO; -OXYC1TAB3 PO; -ROPI4TAB3 PO; -WARF4TAB8 PO
[2018-01-24 17:03] VITALS: TEMP 36.5
[2018-01-24] MEDS ORDERED: SODIUM CHLORIDE 0.9% 1000ML 1,000 ML IV SCH (17:15)
[2018-01-24 17:35] VITALS: Ht 177.8 cm; Wt 126.0 kg
--- NOTE | 2018-01-24 17:36 | DIAGNOSTIC IMAGING REPORT ---
CHEST ONE VIEW PORTABLE CLINICAL HISTORY: 67 years-old Male presenting with Stroke. TECHNIQUE: Portable upright AP view of the chest was obtained. COMPARISON: 01/17/2018. FINDINGS: Atherosclerosis of the aortic arch. Cardiac silhouette normal in size. Lungs and pleural spaces clear. Degenerative changes of the thoracic spine. IMPRESSION: 1. No acute cardiopulmonary disease. Electronically signed by: Hubert Barry M.D. 01/24/2018 5:34 PM Dictated Date/Time: 01/24/2018 5:34 PM
[2018-01-24 17:41] LABS: BASO % 0.1 %; BASO ABS # 0.01 K/uL (0-0.2); EOS % 4.6 %; HEMATOCRIT 42.2 % (42-52); IG# 0.04 K/uL (0.00-0.02); LYMPH % 15.6 %; LYMPH ABS # 1.36 K/uL (1.2-3.4); MEAN CELL VOLUME 90.6 fL (80-100); MEAN CORPUSCULAR HEMOGLOBIN 32.2 pg (25-34); MEAN CORPUSCULAR HGB CONC 35.5 g/dl (32-36); MEAN PLATELET VOLUME 9.3 fL (7.4-10.4); MONO ABS # 0.44 K/uL (0.11-0.59); NEUT % 74.2 %; NEUT ABS # 6.48 K/uL (1.4-6.5); PLATELET COUNT 190 K/uL (130-400); RED CELL DISTRIBUTION WIDTH CV 13.1 % (11.5-14.5); WHITE BLOOD COUNT 8.73 K/uL (4.8-10.8)
--- NOTE | 2018-01-24 17:55 | DIAGNOSTIC IMAGING REPORT ---
HEAD WITHOUT CONTRAST (CT) CT DOSE: 614.27 mGy.cm HISTORY: Mental status change Stroke TECHNIQUE: Multiaxial CT images of the head were performed without the use of intravenous contrast. A dose lowering technique was utilized adhering to the principles of ALARA. Comparison: None. Findings: Considerable mucosal thickening of all major sinuses. The mastoid air cells are generally clear. The calvarium and skull base are intact. The ventricles and sulci are within normal limits. There is no mass, hematoma, midline shift, or acute infarct. Impression: No acute intracranial abnormality. Considerable mucosal thickening of all major sinuses. The above report was generated using voice recognition software. It may contain grammatical, syntax or spelling errors. Electronically signed by: Med Garcia M.D. 01/24/2018 5:54 PM Dictated Date/Time: 01/24/2018 5:52 PM
[2018-01-24 18:04] VITALS: O2SAT 92
[2018-01-24 18:09] LABS: BLOOD UREA NITROGEN 27 mg/dl (7-18); CALCIUM 8.7 mg/dl (8.5-10.1); CARBON DIOXIDE 24 mmol/L (21-32); CREATININE 1.08 mg/dl (0.60-1.40); GLUCOSE 212 mg/dl (70-99); LIPASE 176 U/L (73-393); POTASSIUM 4.3 mmol/L (3.5-5.1); SODIUM 131 mmol/L (136-145)
[2018-01-24] MEDS ORDERED: OXYCODONE HCL IR 5 MG TAB (IMMEDIATE RELEASE) PO STA (18:12)
[2018-01-24 18:14] LABS: CKMB 2.5 ng/ml (0.5-3.6); PTT PATIENT 48.8 SECONDS (21.0-31.0)
[2018-01-24] MEDS ORDERED: LNX125 PO (18:28)
[2018-01-24] MEDS ORDERED: MORP1CAP96 PO (19:17)
[2018-01-24] MEDS ORDERED: METF1TAB85 PO (19:17)
[2018-01-24] MEDS ORDERED: CYM/30 PO (19:17)
[2018-01-24] MEDS ORDERED: WARF4TAB8 PO (19:17)
[2018-01-24] MEDS ORDERED: DULO60CA44 PO (19:17)
[2018-01-24] MEDS ORDERED: HYDR4TAB2 PO (19:17)
[2018-01-24] MEDS ORDERED: NORT25CA PO (19:17)
[2018-01-24] MEDS ORDERED: LISI-725 PO (19:17)
[2018-01-24] MEDS ORDERED: ROPI4TAB3 PO (19:17)
[2018-01-24 20:00] VITALS: BP 132/69
--- NOTE | 2018-01-24 20:04 | DIAGNOSTIC IMAGING REPORT ---
BRAIN WITHOUT CONTRAST CLINICAL HISTORY: 67 years-old Male presenting with sensation of right arm and leg coldness, clinical concern for stroke. TECHNIQUE: Multisequence, multiplanar MR imaging of the brain was performed without the use of intravenous contrast. IV contrast: None. COMPARISON: CT head performed earlier the same day. FINDINGS: Proportional ventricular and sulcal prominence, likely age-related parenchymal volume loss. Periventricular and subcortical white matter T2/FLAIR hyperintensity, nonspecific but likely indicative of chronic small vessel ischemic change. No mass effect or midline shift. No restricted diffusion to suggest acute ischemia. No hemorrhage. No extra-axial fluid collection. T2 skull base flow voids preserved. Bone marrow signal intensity within the calvarium within normal limits. Extensive mucosal thickening of the paranasal sinuses. IMPRESSION: 1. No acute intracranial abnormality. Electronically signed by: Hubert Barry M.D. 01/24/2018 8:03 PM Dictated Date/Time: 01/24/2018 8:00 PM
[2018-01-24 20:20] VITALS: PULSE 68; O2SAT 96
--- NOTE | 2018-01-24 20:35 | EMERGENCY ROOM VISIT NOTE ---
History Report prepared by Kevin: Ana Acosta Under the Supervision of: Dr. Luis Helm D.O. First contact with patient: 17:08 Chief Complaint: STROKE SYMPTOMS Stated Complaint: STROKE SYMPTOMS, REFERRED BY DOC History of Present Illness The patient is a 67 year old male who presents to the Emergency Room with complaints of persistent right sided coldness starting 2 days ago. The patient' s right hand and right arm up to his shoulder have been feeling cold throughout the day. He also feels cold from his right knee down to his right foot. The patient was sent to the ED by his PCP today. He states his right arm and leg feel ice cold like he had been holding them in water. He was just sitting at home when he first noticed the coldness. He had some nausea, dry heaves, and diarrhea last night but this has completely resolved. He had 3 bowel movements last night. He is able to eat and drink now without issues. He denies any new pain or weakness in his extremities. He has a history of neuropathy. He denies any change in vision, chest pain, SOB, or headache. He does state that his head has felt "floaty" across his forehead for the past 3 days. He denies any room spinning. Source of History: patient Onset: 2 days ago Position: arm (right), leg (right) Quality: other (coldness) Timing: other (persistent) Associated Symptoms: + nausea, + diarrhea, No headache, No chest pain, No SOB Note: Pt reports "floaty" in head. Review of Systems See HPI for pertinent positives & negatives. A total of 10 systems reviewed and were otherwise negative. Past Medical & Surgical Medical Problems: (1) Cardiomyopathy (2) CVA (cerebral vascular accident) (3) Diabetes (4) Diabetes mellitus (5) DVT (deep venous thrombosis) (6) GERD (gastroesophageal reflux disease) (7) History of acute renal failure (8) HTN (hypertension) (9) Hx of septic shock (10) Hypercholesteremia (11) Neuropathy (12) Pulmonary embolism (13) Spinal stenosis Surgical Problems: (1) Carpal tunnel syndrome, bilateral (2) History of tonsillectomy and adenoidectomy (3) Hx of cholecystectomy (4) Previous back surgery Family History Patient reports no known family medical history. Social History Smoking Status: Current Every Day Smoker Drug Use: none Marital Status: Housing Status: lives with family Occupation Status: retired Current/Historical Medications Scheduled Carvedilol (Coreg), 12.5 MG PO BID Digoxin (Digoxin), 0.125 MG PO QPM Duloxetine HCl (Cymbalta), 30 MG PO QAM Duloxetine Hcl (Cymbalta), 60 MG PO QPM Fenofibrate (Fenofibrate), 145 MG PO HS Hydromorphone Hcl (Dilaudid), 4 MG PO TID Insulin Human Regular (Humulin R), 75 UNITS SQ BID Insulin Human Regular (Humulin R), 110 UNITS SC QPM Liraglutide (Victoza), 1.8 UNITS SQ QAM Lisinopril (Zestril), 20 MG PO DAILY Metformin Hcl (Metformin Hcl Er), 500 MG PO BID Morphine Sulfate (Morphine Sulfate Er), 30 MG PO BID Nortriptyline (Pamelor), 25 MG PO HS Ropinirole (Requip), 4 MG PO TID Rosuvastatin Calcium (Crestor), 20 MG PO HS Tamsulosin Hcl (Flomax), 0.4 MG PO QPM Warfarin Sod (Jantoven), 4 MG PO DAILY Allergies Coded Allergies: Shellfish (Verified Allergy, Intermediate, HIVES, 11/22/17) Fish Allergy (Verified Allergy, Mild, RASH, 11/22/17) Diphenhydramine (Verified Adverse Reaction, Mild, DISORIENTED, 11/22/17) Physical Exam Vital Signs Date Time Temp Pulse Resp B/P (MAP) Pulse Ox O2 Delivery O2 Flow Rate FiO2 01/24/18 20:20 68 26 96 01/24/18 20:05 66 21 95 01/24/18 20:00 132/69 01/24/18 19:20 66 97 01/24/18 19:15 67 18 96 01/24/18 19:00 66 116/68 94 01/24/18 18:45 66 19 96 01/24/18 18:30 68 20 123/71 95 Room Air 01/24/18 18:04 92 Room Air 01/24/18 18:04 69 20 103/63 92 Room Air 01/24/18 17:25 72 01/24/18 17:03 36.5 93 20 110/69 93 Physical Exam GENERAL: Sitting up in bed, alert, well appearing, well nourished, no distress, non-toxic EYE EXAM: normal conjunctiva. PERRL and EOM's intact. OROPHARYNX: no exudate, no erythema, lips, buccal mucosa, and tongue normal and mucous membranes are moist NECK: supple, no nuchal rigidity, no adenopathy, non-tender LUNGS: Clear to auscultation. Normal chest wall mechanics HEART: no murmurs, S1 normal and S2 normal ABDOMEN: abdomen soft, non-tender, normo-active bowel sounds, no masses, no rebound or guarding. BACK: Back is symmetrical on inspection and there is no deformity, no midline tenderness, no CVA tenderness. SKIN: no rashes and no bruising UPPER EXTREMITIES: upper extremities are grossly normal. LOWER EXTREMITIES: No pitting edema. NEURO EXAM: Normal sensorium, cranial nerves II-XII intact, normal speech, no weakness of arms, no weakness of legs with the exception of EHL and dorsiflexion of the right foot, old per patient. No drift. Finger to nose intact. Gross sensation intact. Rapid alternating movements of upper extremities intact. Medical Decision & Procedures ER Provider Diagnostic Interpretation: Radiology results as stated below per my review and the radiologist's interpretation: CHEST ONE VIEW PORTABLE CLINICAL HISTORY: 67 years-old Male presenting with Stroke. TECHNIQUE: Portable upright AP view of the chest was obtained. COMPARISON: 01/17/2018. FINDINGS: Atherosclerosis of the aortic arch. Cardiac silhouette normal in size. Lungs and pleural spaces clear. Degenerative changes of the thoracic spine. IMPRESSION: 1. No acute cardiopulmonary disease. Electronically signed by: Hubert Barry M.D. 01/24/2018 5:34 PM Dictated Date/Time: 01/24/2018 5:34 PM HEAD WITHOUT CONTRAST (CT) CT DOSE: 614.27 mGy.cm HISTORY: Mental status change Stroke TECHNIQUE: Multiaxial CT images of the head were performed without the use of intravenous contrast. A dose lowering technique was utilized adhering to the principles of ALARA. Comparison: None. Findings: Considerable mucosal thickening of all major sinuses. The mastoid air cells are generally clear. The calvarium and skull base are intact. The ventricles and sulci are within normal limits. There is no mass, hematoma, midline shift, or acute infarct. Impression: No acute intracranial abnormality. Considerable mucosal thickening of all major sinuses. The above report was generated using voice recognition software. It may contain grammatical, syntax or spelling errors. Electronically signed by: Med Garcia M.D. 01/24/2018 5:54 PM Dictated Date/Time: 01/24/2018 5:52 PM BRAIN WITHOUT CONTRAST CLINICAL HISTORY: 67 years-old Male presenting with sensation of right arm and leg coldness, clinical concern for stroke. TECHNIQUE: Multisequence, multiplanar MR imaging of the brain was performed without the use of intravenous contrast. IV contrast: None. COMPARISON: CT head performed earlier the same day. FINDINGS: Proportional ventricular and sulcal prominence, likely age-related parenchymal volume loss. Periventricular and subcortical white matter T2/FLAIR hyperintensity, nonspecific but likely indicative of chronic small vessel ischemic change. No mass effect or midline shift. No restricted diffusion to suggest acute ischemia. No hemorrhage. No extra-axial fluid collection. T2 skull base flow voids preserved. Bone marrow signal intensity within the calvarium within normal limits. Extensive mucosal thickening of the paranasal sinuses. IMPRESSION: 1. No acute intracranial abnormality. Electronically signed by: Hubert Barry M.D. 01/24/2018 8:03 PM Dictated Date/Time: 01/24/2018 8:00 PM Laboratory Results 01/24/18 17:27 Red Blood Count 4.66, Mean Corpuscular Volume 90.6, Mean Corpuscular Hemoglobin 32.2, Mean Corpuscular Hemoglobin Concent 35.5, Mean Platelet Volume 9.3, Neutrophils (%) (Auto) 74.2, Lymphocytes (%) (Auto) 15.6, Monocytes (%) (Auto) 5.0, Eosinophils (%) (Auto) 4.6, Basophils (%) (Auto) 0.1, Neutrophils # (Auto) 6.48, Lymphocytes # (Auto) 1.36, Monocytes # (Auto) 0.44, Eosinophils # (Auto) 0.40, Basophils # (Auto) 0.01 01/24/18 17:27 Test 01/24/18 17:22 01/24/18 17:27 01/24/18 18:29 Bedside Prothrombin Time INR 4.0 (0.9-1.1) Bedside Glucose 215 mg/dl (70-99) White Blood Count 8.73 K/uL (4.8-10.8) Red Blood Count 4.66 M/uL (4.7-6.1) Hemoglobin 15.0 g/dL (14.0-18.0) Hematocrit 42.2 % (42-52) Mean Corpuscular Volume 90.6 fL (80-100) Mean Corpuscular Hemoglobin 32.2 pg (25-34) Mean Corpuscular Hemoglobin Concent 35.5 g/dl (32-36) Platelet Count 190 K/uL (130-400) Mean Platelet Volume 9.3 fL (7.4-10.4) Neutrophils (%) (Auto) 74.2 % Lymphocytes (%) (Auto) 15.6 % Monocytes (%) (Auto) 5.0 % Eosinophils (%) (Auto) 4.6 % Basophils (%) (Auto) 0.1 % Neutrophils # (Auto) 6.48 K/uL (1.4-6.5) Lymphocytes # (Auto) 1.36 K/uL (1.2-3.4) Monocytes # (Auto) 0.44 K/uL (0.11-0.59) Eosinophils # (Auto) 0.40 K/uL (0-0.5) Basophils # (Auto) 0.01 K/uL (0-0.2) RDW Standard Deviation 43.0 fL (36.4-46.3) RDW Coefficient of Variation 13.1 % (11.5-14.5) Immature Granulocyte % (Auto) 0.5 % Immature Granulocyte # (Auto) 0.04 K/uL (0.00-0.02) Prothrombin Time 40.4 SECONDS (9.0-12.0) Prothromb Time International Ratio 4.0 (0.9-1.1) Activated Partial Thromboplast Time 48.8 SECONDS (21.0-31.0) Partial Thromboplastin Ratio 1.9 Anion Gap 5.0 mmol/L (3-11) Est Creatinine Clear Calc Drug Dose 90.9 ml/min Estimated GFR () 83.0 Estimated GFR (Non- 71.6 BUN/Creatinine Ratio 24.6 (10-20) Lactic Acid Level 0.9 mmol/L (0.4-2.0) Calcium Level 8.7 mg/dl (8.5-10.1) Magnesium Level 1.7 mg/dl (1.8-2.4) Total Bilirubin 0.4 mg/dl (0.2-1) Direct Bilirubin 0.1 mg/dl (0-0.2) Aspartate Amino Transf (AST/SGOT) 26 U/L (15-37) Alanine Aminotransferase (ALT/SGPT) 41 U/L (12-78) Alkaline Phosphatase 74 U/L (45-117) Total Creatine Kinase 142 U/L (39-308) Creatine Kinase MB 2.5 ng/ml (0.5-3.6) Creatine Kinase MB Ratio 1.8 (0-3.0) Troponin I < 0.015 ng/ml (0-0.045) Total Protein 6.6 gm/dl (6.4-8.2) Albumin 3.2 gm/dl (3.4-5.0) Lipase 176 U/L (73-393) Urine Color YELLOW Urine Appearance CLEAR (CLEAR) Urine pH 5.0 (4.5-7.5) Urine Specific E[place]y 1.027 (1.000-1.030) Urine Protein NEG (NEG) Urine Glucose (UA) 3+ (NEG) Urine Ketones NEG (NEG) Urine Occult Blood NEG (NEG) Urine Nitrite NEG (NEG) Urine Bilirubin NEG (NEG) Urine Urobilinogen NEG (NEG) Urine Leukocyte Esterase NEG (NEG) Urine WBC (Auto) 0 /hpf (0-5) Urine RBC (Auto) 0-4 /hpf (0-4) Urine Hyaline Casts (Auto) 0 /lpf (0-5) Urine Epithelial Cells (Auto) 0-5 /lpf (0-5) Urine Bacteria (Auto) NEG (NEG) Laboratory results per my review. Medications Administered Medications (Trade) Dose Ordered Sig/Raina Route Start Time Stop Time Status Last Admin Dose Admin Sodium Chloride 1,000 ml @ 50 mls/hr Q20H IV 01/24/18 17:15 01/24/18 20:50 DC 01/24/18 17:47 50 MLS/HR Oxycodone HCl (Roxicodone Immediate Rel Tab) 5 mg NOW STAT PO 01/24/18 18:12 01/24/18 18:13 DC 01/24/18 18:28 5 MG ECG Per My Interpretation Indication: other Rate (beats per minute): 73 Rhythm: sinus rhythm Findings: left axis deviation, other (no PVC) ED Course ED COURSE: Vital signs were reviewed and showed normal vitals. The patients medical record was reviewed The above diagnostic studies were performed and reviewed. ED treatments and interventions as stated above. 1709: The patient was evaluated in room B12B. A complete history and physical examination was performed. 1715: NSS 1000 ml @ 50 mls/hr IV. 1812: Oxycodone HCl 5 mg PO. 181: I reevaluated the patient. I updated him on the results. He will go for MRI. 2020: Upon reevaluation, the patient is resting comfortably. I discussed my findings with the patient and he understands and agrees with the treatment plan. Based on the patients age, coexisting illnesses, exam and lab findings the decision to treat as an outpatient was made. The patient remained stable while under my care. The patient appeared well at the time of discharge. Medical Decision Differential Diagnosis includes but is not limited to ischemic Stroke, hemorrhagic stroke, bells palsy, mass, neoplasm, migraine headache, seizure, subarachnoid hemorrhage, TIA, and transient global amnesia. Patient is a 67-year-old male that presents the ER referred in by his primary care doctor for a stroke workup. He has been having coolness in his right lower and right upper extremity over the past 3 days. He has no other complaints at this time. He is completely neurologically intact with the exception of old weakness in the right lower extremity. Labs were obtained and CBC was unremarkable. BMP with mild hyponatremia at 131. LFTs were unremarkable. he has no abdominal pain. Abdominal exam is benign. Did have 3 loose bowel movements. Troponin was negative. INR was slightly elevated at 4. I did update the patient in regards to this. He will follow-up with his managing physician. UA was negative. CT head, chest x-ray and MRI was negative for any stroke. Patient was updated at bedside. He was discharged follow-up with PCP as an outpatient. Discussed with Pt concerning signs and symptoms to watch out for. Pt was instructed to follow up with their PCP and discussed with the patient their option to return to the ED at anytime for persistent or worsening symptoms. The appropriate anticipatory guidance and out- patient management, including indications for return to the emergency department , were explained at length to the patient and understood. Medication Reconcilliation Current Medication List: was personally reviewed by me Blood Pressure Screening Patient's blood pressure: Normal blood pressure Blood pressure disposition: Did not require urgent referral Impression Primary Impression: Paresthesia of right arm and leg Additional Impression: Hyponatremia Scribe Attestation The scribe's documentation has been prepared under my direction and personally reviewed by me in its entirety. I confirm that the note above accurately reflects all work, treatment, procedures, and medical decision making performed by me. Departure Information Dispostion Home / Self-Care Referrals Anny Moralez .JUSTICE (PCP) Forms HOME CARE DOCUMENTATION FORM, IMPORTANT VISIT INFORMATION Patient Instructions ED Weakness Mary FIGUEROA [facility] Additional Instructions Please follow up with your primary care doctor with in the next 24 hours. Any worsening of your symptoms, please return to the ED immediately. This includes any fevers greater than 100.4, worsening pain, weakness or numbness in your arms or legs, chest pain, shortness breath, persistent nausea, vomiting, unable to eat or drink, or any other concerning signs or symptoms from your standpoint. Your INR is elevated at 4. Please follow-up with your primary care doctor. Problem Qualifiers
[2018-01-24 21:35] LABS: ALBUMIN 3.2 gm/dl (3.4-5.0); TOTAL PROTEIN 6.6 gm/dl (6.4-8.2)
== END 2018-01-24 20:30 | disposition home or self-care (01) ==
LOC: C.EDB 17:02
DX: R20.2 Paresthesia of skin (principal); E87.1 Hypo-osmolality and hyponatremia; E11.9 Type 2 diabetes mellitus without complications; K21.9 Gastro-esophageal reflux disease without esophagitis; I10 Essential (primary) hypertension; Z86.711 Personal history of pulmonary embolism; Z86.718 Personal history of other venous thrombosis and embolism; Z86.73 Personal history of transient ischemic attack (TIA), and cerebral infarction without residual deficits; Z87.891 Personal history of nicotine dependence; Z79.01 Long term (current) use of anticoagulants; Z79.4 Long term (current) use of insulin; Z79.891 Long term (current) use of opiate analgesic; Z79.899 Other long term (current) drug therapy; F17.200 Nicotine dependence, unspecified, uncomplicated; Z88.8 Allergy status to other drugs, medicaments and biological substances; Z91.013 Allergy to seafood

== ENCOUNTER → 2018-02-09 | Outpatient (CLI) | payer OTHER, MEDICARE ==
[~2018-02-09] MED LIST changes: +CYM/30 PO; +DULO60CA44 PO; +HYDR4TAB2 PO; +LISI-725 PO; +LNX125 PO; +METF1TAB85 PO; +MORP1CAP96 PO; +NORT25CA PO; +ROPI4TAB3 PO; +WARF4TAB8 PO
[2018-02-09 14:09] LABS: BLOOD UREA NITROGEN 27 mg/dl (7-18); CALCIUM 8.9 mg/dl (8.5-10.1); CARBON DIOXIDE 25 mmol/L (21-32); CREATININE 1.14 mg/dl (0.60-1.40); GLUCOSE 119 mg/dl (70-99); POTASSIUM 4.6 mmol/L (3.5-5.1); SODIUM 136 mmol/L (136-145)
== END | disposition home or self-care (01) ==
LOC: C.LABPBG 10:42
PROVIDERS: ATTEND Physician Assistant
DX: E87.1 Hypo-osmolality and hyponatremia (principal)

== ENCOUNTER → 2018-06-15 | Outpatient (CLI) | payer OTHER, MEDICARE ==
[~2018-06-15] MED LIST changes: +CHOL2000 PO; +CRS/10 PO; +FURO20TA PO; +PRLSR20 PO; -ROSU20TA PO
--- NOTE | 2018-06-15 09:04 | DIAGNOSTIC IMAGING REPORT ---
CT OF THE NECK WITH CONTRAST CLINICAL HISTORY: Right true vocal cord paralysis. COMPARISON STUDY: No previous studies for comparison. TECHNIQUE: Axial images of the neck were obtained following intravenous injection of 82 cc of Optiray 320 IV. Sagittal and coronal reconstructions were performed. FINDINGS: The parotid and submandibular glands are normal. Epiglottis is normal. Medialization of the right vocal cord with asymmetric dilatation of the right pyriform sinus indicates right vocal cord paralysis. No enlarged cervical lymph nodes are noted. No cervical mass is noted. The head CT and chest CT will be reported separate. No suspicious osseous lesion is noted. Thyroid gland is unremarkable by CT. There is moderate plaque within the proximal bilateral internal carotid arteries without significant stenosis. Postoperative findings within the sinuses are noted. There is mild mucosal thickening of the sinuses. Orbits are unremarkable. Mastoid air cells are clear. Visualized portions of the airway are patent. IMPRESSION: 1. No findings to explain right vocal cord paralysis within the neck. 2. Medialization of the right vocal cord and asymmetric dilatation of the right pyriform sinus consistent with right vocal cord paralysis. Electronically signed by: Brayden Bansal M.D. 06/15/2018 8:53 AM Dictated Date/Time: 06/15/2018 8:12 AM
--- NOTE | 2018-06-15 09:04 | DIAGNOSTIC IMAGING REPORT ---
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 A dose lowering technique was utilized adhering to the principles of ALARA. COMPARISON: CT soft tissue neck and CT head of same day, CTA of the chest 01/01/2017 FINDINGS: Homogeneous thyroid without dominant nodule. Mild medial deviation of the true right vocal cord partially imaged. No pathologically enlarged lymph nodes of the chest identified. Mild multichamber cardiac enlargement without pericardial effusion. Three-vessel distribution of coronary arterial calcifications are noted. There is mild fusiform dilation of the ascending thoracic aorta, 4.3 x 4.0 cm. No thoracic aortic dissection. Note is made of a bovine aortic arch. The opacified pulmonary arterial tree is unremarkable. No pneumothorax or pleural effusion. Mild centrilobular and paraseptal emphysematous changes. Subpleural reticular opacities within the upper lung zones suggest areas of scarring. 5 mm pleural-based solid nodule of the right middle lobe on image 163 series 9 appears unchanged. 8 mm ovoid solid nodule of the super segment right lower lobe is also unchanged from comparison. 6 mm solid nodule of the left lower lobe on image 141 series 9 is also unchanged. 5 mm solid nodule of the right upper lobe on image 108 series 9 is stable. Moderate bilateral bronchial wall thickening with multifocal bronchial secretions. Subcentimeter calcified granulomata about the lung bases. Subsegmental bibasilar groundglass opacities suggest atelectasis. Prior cholecystectomy. Hepatic steatosis. Spleen appears mildly enlarged, 14.2 cm. The soft tissues are unremarkable. Bones appear to be intact. IMPRESSION: 1. Emphysema with moderate bilateral bronchial wall thickening and multifocal bronchial secretions suggests bronchitis. 2. Cardiomegaly with coronary arterial disease. 3. Unchanged scattered bilateral solid pulmonary nodules measuring up to 8 mm are stable from comparison study 01/01/2017. 4. Hepatic steatosis. 5. Splenomegaly. Please refer to below summary of Fleischner criteria recommendations for follow-up of incidental CT nodules (Ector Delacruz, Guidelines for management of small pulmonary nodules detected on CT scans: A statement from the Fleischner Society, Radiology 237: [phone].) SOLID NODULES Multiple nodules size: 6-8 mm * Low risk patients: follow-up at 3-6 months, then consider further follow-up at 18-24 months * high risk patients: follow-up at 3-6 months, then at 18-24 months if no change Multiple nodules size: >8 mm * Low risk patients: follow-up at 3-6 months, then consider further follow-up at 18-24 months * high risk patients: follow-up at 3-6 months, then at 18-24 months if no change Note: newly detected indeterminate nodule in persons 35 years of age or older. * Low risk patients: minimal or absent history of smoking and/or other known risk factors * high risk patients: history of smoking or of other known risk factors (e.g. first degree relative with lung cancer, or exposure to asbestos, radon, uranium) * if a nodule up to 8 mm is partly solid or is ground glass further follow-up is required after 24 months to exclude possible slow growing adenocarcinoma (SAMEER) The above report was generated using voice recognition software. It may contain grammatical, syntax or spelling errors. Electronically signed by: Marlon Salazar M.D. 06/15/2018 8:30 AM Dictated Date/Time: 06/15/2018 8:11 AM
--- NOTE | 2018-06-15 09:04 | DIAGNOSTIC IMAGING REPORT ---
HEAD COMBO HISTORY: 67 years-old Male J38.01 Vocal fold paralysis, -[id number] MALE WITH RIGHT TR acute dysphasia with right-sided vocal cord paralysis. COMPARISON: CT head 01/24/[address] tissue neck CT 06/15/2018. TECHNIQUE: Multiple axial CT images of the head were obtained both with and without the use of 82 mL Optiray 320 IV contrast. A dose lowering technique was used consistent with the principals of ALARA. FINDINGS: No acute intracranial hemorrhage, midline shift, territorial infarct, abnormal extra-axial collections, hydrocephalus or intracranial mass. Age-related involutional changes. There is no abnormal intra-axial or extra-axial enhancement identified. The cerebral venous sinuses appear patent. The visualized opacified arterial structures also appear to be within normal limits. No calvarial fracture. Mastoid air cells, middle ear cavities are clear. Mild mucoperiosteal thickening of the sphenoid and maxillary sinuses with mild to moderate mucosal thickening of the ethmoid air cells. The soft tissues and orbits are unremarkable. IMPRESSION: 1. No acute intracranial abnormality or abnormal enhancement. 2. Paranasal sinus disease. The above report was generated using voice recognition software. It may contain grammatical, syntax or spelling errors. Electronically signed by: Marlon Salazar M.D. 06/15/2018 8:11 AM Dictated Date/Time: 06/15/2018 8:06 AM
== END | disposition home or self-care (01) ==
LOC: C.CTS 07:30
DX: J38.01 Paralysis of vocal cords and larynx, unilateral (principal); J43.9 Emphysema, unspecified; I51.7 Cardiomegaly; I25.10 Atherosclerotic heart disease of native coronary artery without angina pectoris; K76.0 Fatty (change of) liver, not elsewhere classified; R16.1 Splenomegaly, not elsewhere classified; J32.9 Chronic sinusitis, unspecified

== ENCOUNTER 2022-08-09 13:20 | Observation (INO) ==
[2022-08-09] MEDS ORDERED: SODIUM CHLORIDE 0.9% 500 ML IV SCH (14:00)
[2022-08-09] MEDS ORDERED: MoRPHine SULFATE 10 MG/ML CARP/VIAL IV STA (14:29)
[2022-08-09] MEDS ORDERED: SODIUM CHLORIDE 0.9% 1000ML 1,000 ML IV ONE (14:29)
[2022-08-09] MEDS ORDERED: LORazepam 2 MG/2 ML SYR IV STA (14:29)
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
--- NOTE | 2022-08-09 15:12 | XRay Report ---
XR chest 1V portable HISTORY: weakness COMPARISON: Chest 04/20/2022. FINDINGS: There are low lung volumes. The heart remains mildly enlarged. There is chronic interstitia l thickening, unchanged. No new focal lung consolidations to suggest pneumonia. No evidence for pulmo nary edema. Thoracolumbar spinal fusion hardware and a spinal stimulator leads are again noted. No pn eumothorax. No pleural effusions. Mild emphysema again noted. IMPRESSION: No significant change compared to the prior study. No acute process. Mild cardiomegaly and chronic in terstitial thickening are again noted. ACT 112: Negative or not required by law. Electronically signed by: Daniel Walters M.D. 08/09/2022 3:11 PM
[2022-08-09 15:19] LABS: Basophils # (auto) 0.05 K/uL (0-0.2); Basophils % (auto) 0.6 %; Eosinophils % (auto) 2.4 %; Hematocrit (blood only) 35.9 % (40.1-51.0); Hemoglobin 12.1 g/dl (14.0-18.0); Immature Granulocytes # (auto) 0.03 K/uL (0.00-0.02); Immature Granulocytes % (auto) 0.4 %; Lymphocytes # (auto) 1.39 K/uL (1.2-3.4); Lymphocytes % (auto) 16.7 %; Mean Corpuscular Hgb Conc 33.7 g/dL (32.0-36.0); Mean Corpuscular Volume 92.1 fL (80.0-100.0); Mean Platelet Volume 8.8 fL (9.4-12.4); Monocytes # (auto) 0.57 K/uL (0.24-0.82); Monocytes % (auto) 6.9 %; Neutrophils # (auto) 6.08 K/uL (1.4-6.5); Platelet Count 350 K/uL (130-400); White Blood Count 8.32 K/ul (4.8-10.8)
[2022-08-09 15:43] LABS: Troponin I High Sensitivity 5.2 pg/ml (0-20)
[2022-08-09] MEDS ORDERED: HYDROmorphone INJ 1 MG/ML SYRINGE IV STA (15:46)
[2022-08-09 15:47] LABS: Albumin Globulin Ratio 1.6 (0.9-2); Albumin Level 4.1 gm/dl (3.4-5.0); Bilirubin,Total 0.4 mg/dl (0.2-1.0); Calcium 9.3 mg/dl (8.5-10.1); Globulin 2.6 gm/dl (2.5-4.0); Magnesium 1.6 mg/dl (1.7-2.4); Potassium 4.8 mmol/L (3.5-5.1); Total Protein 6.7 gm/dl (6.0-8.3)
[2022-08-09 15:53] LABS: Influenza A virus by PCR Negative (Neg); Influenza B virus by PCR Negative (Neg); RSV by PCR Negative (Neg); SARS CoV2 RNA(COVID-19) InHosp NEGATIVE (Negative)
[2022-08-09 16:08] LABS: Appearance Urine Clear (Clear); Bacteria Urine Automated Negative (Negative); Bilirubin Urine Negative (Negative); Blood Urine Negative (Negative); Cast Urine Automated 0 /lpf (0-5); Color Urine Yellow; Epithelial Cell Urine Auto 0-5 /lpf (0-5); Glucose Urine UA Negative (Negative); Ketones Urine Negative (Negative); Leukocyte Esterase Urine Negative (Negative); Nitrite Urine Negative (Negative); Protein Urine 1+ (Negative); RBC Urine Automated 0-4 /hpf (0-4); Specific Gravity Urine 1.015 (1.000-1.030); Urobilinogen Urine Negative (Negative); WBC Urine Automated 0 /hpf (0-5)
[2022-08-09] MEDS ORDERED: MAGNESIUM SULFATE / D5W 1 GM/100 ML BAG IV STA (16:13)
[2022-08-09] MEDS ORDERED: SODIUM CHLORIDE 0.9% 1000ML 500 ML IV ONE ×2 (16:14→16:57)
[2022-08-09 16:23] LABS: Creatinine Clr Calc Pharmacy 58.3 ml/min; Est GFR (Non-African American) 50.9 ml/min
[2022-08-09] MEDS ORDERED: HYDROmorphone INJ 0.5 MG/0.5 ML SYR IV STA (16:58)
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
[2022-08-09 19:17] LABS: Lyme Ab IgG w/WB Rflx Negative (Negative); Lyme Ab IgM w/WB Rflx Negative (Negative)
[2022-08-09] MEDS ORDERED: IPRATROPIUM BROMIDE/ALBUTEROL respimat INH INH PRN (22:19)
[2022-08-09] MEDS ORDERED: GLUCOSE 10 TAB/TUBE PO PRN (22:19)
[2022-08-09] MEDS ORDERED: DEXTROSE 50% 50 ML SYRINGE IV PRN (22:19)
[2022-08-09] MEDS ORDERED: CARBOHYDRATES FOR HYPOGLYCEMIA PO PRN (22:19)
[2022-08-09] MEDS ORDERED: ICU PROTOCOL FOR HYPERGLYCEMIA PRN (22:19)
[2022-08-09] MEDS ORDERED: GLUCOSE 40% GEL 15 GM TUBE PO PRN (22:19)
[2022-08-09] MEDS ORDERED: GLUCAGON FOR INJ 1 MG VIAL SQ PRN (22:19)
[2022-08-09] MEDS ORDERED: ALBUTEROL HFA 8 GM INHALER INH PRN (22:55)
[2022-08-09] MEDS ORDERED: IPRATROPIUM BROMIDE HFA INHALER INH PRN (22:55)
[2022-08-09 23:28] LABS: Folate (Folic Acid) 13.82 ng/ml (>5.38)
[2022-08-09] MEDS: lamoTRIgine 25 MG TAB PO SCH (23:36)
[2022-08-09] MEDS: lamoTRIgine 100 MG TAB PO SCH (23:37)
[2022-08-09] MEDS: busPIRone 5 MG TAB PO SCH (23:37)
[2022-08-09] MEDS: CARBIDOPA/LEVODOPA 25/100MG TAB PO SCH (23:38)
[2022-08-09] MEDS: DULoxetine HCL 60 MG CAP PO SCH (23:38)
[2022-08-09] MEDS: cilostazoL 100 MG TAB PO SCH (23:38)
[2022-08-09] MEDS: lisinopril 20 MG TAB PO SCH (23:39)
[2022-08-09] MEDS: APIXABAN 5 MG TABLET PO SCH (23:39)
[2022-08-09] MEDS: rOPINIRole HCL 2 MG TABLET PO SCH (23:40)
[2022-08-09] MEDS: IMIPRAMINE HCL 50 MG TAB PO SCH (23:41)
[2022-08-09] MEDS: TAMSULOSIN HCL 0.4 MG CAP PO SCH (23:41)
[2022-08-09] MEDS: INSULIN ASPART PER UNIT SC SCH (23:47)
[2022-08-09] MEDS: LANTUS PER UNIT CHARGE SQ SCH (23:47)
[2022-08-10] MEDS: MoRPHine SULFATE IR 15 MG TAB (IMMEDIATE RELEASE) PO PRN ×3 (00:29→19:35)
[2022-08-10] MEDS: ACETAMINOPHEN 325 MG TAB PO PRN (06:24)
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
[2022-08-10] MEDS: FOLIC ACID 1 MG TAB PO SCH (07:44)
[2022-08-10] MEDS: lamoTRIgine 100 MG TAB PO SCH ×2 (07:44→21:11)
[2022-08-10] MEDS: CYANOCOBALAMIN (B-12) 500 MCG TABLET PO SCH (07:44)
[2022-08-10] MEDS: DULoxetine HCL 60 MG CAP PO SCH (07:44)
[2022-08-10] MEDS: PANTOprazole 40 MG TAB PO SCH (07:44)
[2022-08-10] MEDS: lamoTRIgine 25 MG TAB PO SCH ×2 (07:44→21:17)
[2022-08-10] MEDS: busPIRone 5 MG TAB PO SCH ×2 (07:44→21:13)
[2022-08-10] MEDS: FINASTERIDE 5 MG TAB PO SCH (07:44)
[2022-08-10] MEDS: TAMSULOSIN HCL 0.4 MG CAP PO SCH ×2 (07:44→21:19)
[2022-08-10] MEDS: ROSUVASTATIN CALCIUM 20 MG TAB PO SCH (07:45)
[2022-08-10] MEDS: APIXABAN 5 MG TABLET PO SCH ×2 (07:45→21:09)
[2022-08-10] MEDS: lisinopril 20 MG TAB PO SCH ×2 (07:45→21:10)
[2022-08-10] MEDS: rOPINIRole HCL 2 MG TABLET PO SCH ×2 (07:45→21:17)
[2022-08-10] MEDS: amLODIPine BESYLATE 5 MG TAB PO SCH (07:45)
[2022-08-10] MEDS: CLOPIDOGREL BISULFATE 75 MG TAB PO SCH (07:45)
[2022-08-10] MEDS: CHOLECALCIFEROL 1,000 UNITS 25 MCG TAB PO SCH (07:46)
[2022-08-10] MEDS: CARBIDOPA/LEVODOPA 25/100MG TAB PO SCH ×2 (07:46→21:14)
[2022-08-10] MEDS: cilostazoL 100 MG TAB PO SCH ×2 (07:46→21:15)
[2022-08-10] MEDS: INSULIN ASPART PER UNIT SC SCH ×2 (08:51→12:36)
[2022-08-10] MEDS: LANTUS PER UNIT CHARGE SQ SCH (08:51)
[2022-08-10 09:00] LABS: Hematocrit (blood only) 36.5 % (40.1-51.0); Mean Corpuscular Hemoglobin 30.6 pg (25.0-34.0); Mean Corpuscular Hgb Conc 32.9 g/dL (32.0-36.0); Mean Corpuscular Volume 93.1 fL (80.0-100.0); Mean Platelet Volume 8.6 fL (9.4-12.4); Platelet Count 336 K/uL (130-400); RDW Coefficient of Variation 12.9 % (11.5-14.5); RDW Standard Deviation 44.1 fL (36.4-46.3); Red Blood Count 3.92 M/uL (4.63-6.08); White Blood Count 8.01 K/ul (4.8-10.8)
[2022-08-10 09:41] LABS: BUN Creatinine Ratio 16.9 (10-20); Creatinine Clr Calc Pharmacy 69.2 ml/min; Est GFR (African American) 72.5 ml/min; Est GFR (Non-African American) 62.6 ml/min; Magnesium 1.7 mg/dl (1.7-2.4); Potassium 4.2 mmol/L (3.5-5.1)
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
--- NOTE | 2022-08-10 10:18 | Magnetic Resonance Report ---
MR lumbar spine wo con CLINICAL HISTORY: worsening LE peripheral neuropathy S/P fall TECHNIQUE: Multiplanar sequences through the lumbar spine were obtained, without intravenous contrast . Comparison: Comparison is made to MRI lumbar spine 05/27/2021 FINDINGS: Exam is limited by posterior fixation hardware spanning the thoracolumbar spine. There is no evidence of severe spinal canal stenosis. Susceptibility artifact severely limits evaluat ion of neuroforaminal stenosis. There is again noted right disc bulge at L5-S1 which may create signi ficant right neural foraminal stenosis at this level. IMPRESSION: Highly limited exam due to metallic artifact. No canal stenosis is seen. There is suggestion of right neuroforaminal stenosis at L5-S1, similar to prior exam. ACT 112: Negative or not required by law. Electronically signed by: Nura Bergman M.D. 08/10/2022 10:16 AM
--- NOTE | 2022-08-10 13:07 | Medical Student Progress Note ---
Date of Service August 10, 2022 Assessment & Plan (1) Peripheral neuropathy: Plan Mick 71 yo male with a history of neuropathy, restless leg syndrome, DM2, prev lumbar spinal fusion 2013 with post laminectomy syndrome , claudication from severe PAD, spinal stimulator admitted YD for pain in his lower extremities and restless movement. This is likely due to exacerbation of chronic peripheral neuropathy due to the distal to proximal pattern of symptoms not following any specific nerve, nerve root, or dermatome. - P. neuropathy - multifactorial - DM2, prev lumbar spinal fusion with post moser. syndrome, polypharmacy, claudication - no saddle anesthesia, loss of bowel/bladder, lower ext weakness - spinal stimulator malfunction rule out - meds: requip, carbidopa-levodopa, buspar, tofranil, lamictal - - given morphine 15mg PO Q8 last 10AM, - ropinerol, carbidopa/levo RLS - imipramine (TCA) - [facility] neuro recs: venlafaxine ER 37.5 mg/day with intention to uptitrate to 75 mg/day after 1 week - CT of spine to monitor whether pedicle screws are intact - D/C when pt can tolerate pain; otherwise pt is hemodynamically stable - Seizure like activity - neuro consulted - EEG negative in may 12 - DM2 - hold metformin; start Glargine 17 units BID; correction factor 25 and carb ratio 8 - A1c 6.1 % dec 2021 - CKD 3a - follows Dr. 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 Cunningham - Hypomagnesemia - given 1gm IV - mg 1.6 today within range at 1.7 - stable - F/E/N - PO fluid, normal electrolytes, heart healthy diet - Prophylaxis: apixaban 5mg - Code status: full code/full care. - Dispo: med/surg Admission and Anticipated Discharge Date Admission Date: August 09, 2022 Subjective No acute events overnight. Pt pain in his right leg is slightly improved. pain scale 6/10 but baseline is 3-4/10. pain paradoxically improves with movement and increases with rest. Morphine helps the patient but nsaids/tylenol do not help. Pt controlling bowel and bladder and can ambulate but feels unsteady on his feet. Pt notes weakness has been present for 5+ years which limits his steps to 15 before feeling weak. Review of Systems Review of Systems: All systems reviewed & are unremarkable except as noted in HPI & below Physical Exam Physical Exam: - GA: painful and restless - decreased pain sensation on the right toe otherwise normal sensory LE - msk: 5/5 strength b/l of the hip extensors, knee extension, and plantar flexion. 1/5 strength on right dorsiflexion of the foot. Left foot 5/5 dorsiflexion. reflexes 0-1 on patellar and Achilles on the right, 0-1 L ac hilles normal left patellar - vasc: no edema, no pallor - skin: no abnormal skin lesions or ulcers in pts extremities Results & Data ([facility]) Vital Signs (Past 12 Hours) Vital Signs Temp Pulse Resp BP Pulse Ox O2 Del Method 08/10/22 07:36 36.5 C 62 18 153/72 H 91 Room Air
--- NOTE | 2022-08-10 15:29 | Electrocardiogram Report ---
Test Reason : Blood Pressure : / mmHG Vent. Rate : 088 BPM Atrial Rate : 088 BPM P-R Int : 170 ms QRS Dur : 118 ms QT Int : 368 ms P-R-T Axes : 115 -14 082 degrees QTc Int : 445 ms Poor data quality, interpretation may be adversely affected Normal sinus rhythm Non-specific intra-ventricular conduction delay Borderline ECG When compared with ECG of 20-APR-2022 13:29, No significant change Confirmed by Tucker Germain ([id number]) on 08/10/2022 3:29:12 PM Referred By: ED Confirmed By:Tucker Germain
--- NOTE | 2022-08-10 16:56 | CT Scan Report ---
LUMBAR SPINE CT CT DOSE: 1022.56 mGy.cm HISTORY: follow up previous CT, look at hardware TECHNIQUE: Multiaxial CT images of the lumbar spine were performed and reformatted in the sagittal an d coronal plane without the use of contrast. A dose lowering technique was utilized adhering to the principles of ALARA. COMPARISON: Lumbar spine MRI 08/09/2022. Lumbar spine CT 09/26/2021. FINDINGS: Extensive postoperative findings within the lower thoracic, lumbar and sacral spines are no jenn with multilevel decompression and fusion. This extends from T9 through S1 with pedicle screws and rods. The hardware appears intact. Spinal stimulator leads enter at the T9-T10 level and terminate a t the T8 level. No acute lumbar spine fracture is noted. Vertebral body heights are maintained. Centr al canal and neural foramen are suboptimally assessed by CT. Paravertebral soft tissues are unchanged . Mild lucency adjacent to the bilateral S1 pedicle screws is unchanged. IMPRESSION: 1. Overall, no significant change compared to the prior study. No acute lumbar spine fracture or subl uxation. 2. T9-S1 posterior decompression and fusion with pedicle screws and rods. The hardware appears intact . Mild periprosthetic lucency at the bilateral S1 disc pedicle screws may reflect loosening and remai ns unchanged. 3. Suboptimal evaluation of the central canal and neural foramen given CT technique. ACT 112: Negative or not required by law. Electronically signed by: Daniel Walters M.D. 08/10/2022 4:54 PM
[2022-08-10] MEDS: VENLAFAXINE HCL XR 37.5 MG CAPXR PO SCH (21:08)
[2022-08-10] MEDS: IMIPRAMINE HCL 50 MG TAB PO SCH (21:16)
--- NOTE | 2022-08-10 21:16 | Ultrasound Report ---
US arterial duplex bilateral lower extremity CLINICAL HISTORY: history of peripheral arterial disease, worsening of leg pain symptoms COMPARISON STUDY: Right leg arterial Doppler study 03/06/2017. FINDINGS: The patient was unable to tolerate the ankle brachial indices. There are normal velocities and biphasic to triphasic waveforms seen within the bilateral common femoral, superficial femoral, an d popliteal arteries. The right peroneal and left anterior tibial arteries were not identified. Only the proximal portion of the left posterior tibial artery is identified and demonstrates normal veloci ty monophasic waveforms. Only the proximal portion of the right posterior tibial artery is identified and demonstrates normal velocity monophasic waveforms. There are monophasic waveforms seen throughou t the bilateral calf arteries. Monophasic normal velocity waveforms within the bilateral dorsalis ped is arteries. IMPRESSION: 1. No significant stenosis or occlusion within the bilateral common femoral, superficial femoral, pop liteal arteries. 2. Monophasic waveforms seen throughout the visualized calf arteries as described above. This suggest s diffuse atherosclerotic disease. 3. Of note, some of the calf arteries were not well visualized as described above. ACT 112: Negative or not required by law. Electronically signed by: Daniel Walters M.D. 08/10/2022 9:13 PM
[2022-08-10] MEDS: MAGNESIUM SULFATE / D5W 1 GM/100 ML BAG IV SCH ×2 (22:08→23:43)
[2022-08-11 06:11] LABS: Hematocrit (blood only) 33.3 % (40.1-51.0); Hemoglobin 11.4 g/dl (14.0-18.0); Mean Corpuscular Hemoglobin 31.3 pg (25.0-34.0); Mean Corpuscular Hgb Conc 34.2 g/dL (32.0-36.0); Mean Corpuscular Volume 91.5 fL (80.0-100.0); Mean Platelet Volume 8.5 fL (9.4-12.4); Platelet Count 284 K/uL (130-400); RDW Coefficient of Variation 12.5 % (11.5-14.5); RDW Standard Deviation 41.4 fL (36.4-46.3); Red Blood Count 3.64 M/uL (4.63-6.08); White Blood Count 7.92 K/ul (4.8-10.8)
[2022-08-11 06:37] LABS: BUN Creatinine Ratio 19.4 (10-20); Calcium 8.8 mg/dl (8.5-10.1); Creatinine Clr Calc Pharmacy 60.9 ml/min; Est GFR (African American) 62.2 ml/min; Est GFR (Non-African American) 53.7 ml/min; Magnesium 1.8 mg/dl (1.7-2.4); Potassium 3.9 mmol/L (3.5-5.1)
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
[2022-08-11 08:03] LABS: Estimated Average Glucose 137 mg/dl; Hemoglobin A1C 6.4 % (4.5-5.6)
[2022-08-11] MEDS: APIXABAN 5 MG TABLET PO SCH ×2 (08:18→20:15)
[2022-08-11] MEDS: busPIRone 5 MG TAB PO SCH ×2 (08:18→20:15)
[2022-08-11] MEDS: TAMSULOSIN HCL 0.4 MG CAP PO SCH ×2 (08:18→20:15)
[2022-08-11] MEDS: lamoTRIgine 25 MG TAB PO SCH ×2 (08:18→20:15)
[2022-08-11] MEDS: rOPINIRole HCL 2 MG TABLET PO SCH ×2 (08:18→20:15)
[2022-08-11] MEDS: ROSUVASTATIN CALCIUM 20 MG TAB PO SCH (08:18)
[2022-08-11] MEDS: CARBIDOPA/LEVODOPA 25/100MG TAB PO SCH ×2 (08:19→20:14)
[2022-08-11] MEDS: lisinopril 20 MG TAB PO SCH ×2 (08:19→20:14)
[2022-08-11] MEDS: amLODIPine BESYLATE 5 MG TAB PO SCH (08:19)
[2022-08-11] MEDS: CLOPIDOGREL BISULFATE 75 MG TAB PO SCH (08:19)
[2022-08-11] MEDS: PANTOprazole 40 MG TAB PO SCH (08:19)
[2022-08-11] MEDS: lamoTRIgine 100 MG TAB PO SCH ×2 (08:19→20:15)
[2022-08-11] MEDS: cilostazoL 100 MG TAB PO SCH ×2 (08:19→20:15)
[2022-08-11] MEDS: FOLIC ACID 1 MG TAB PO SCH (08:19)
[2022-08-11] MEDS: FINASTERIDE 5 MG TAB PO SCH (08:19)
[2022-08-11] MEDS: CHOLECALCIFEROL 1,000 UNITS 25 MCG TAB PO SCH (08:20)
[2022-08-11] MEDS: CYANOCOBALAMIN (B-12) 500 MCG TABLET PO SCH (08:20)
[2022-08-11] MEDS: LANTUS PER UNIT CHARGE SQ SCH (09:33)
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
[2022-08-11] MEDS: MoRPHine SULFATE IR 15 MG TAB (IMMEDIATE RELEASE) PO PRN (16:27)
[2022-08-11] MEDS: ACETAMINOPHEN 325 MG TAB PO PRN (17:18)
[2022-08-11] MEDS: IMIPRAMINE HCL 50 MG TAB PO SCH (20:15)
[2022-08-11] MEDS: VENLAFAXINE HCL XR 37.5 MG CAPXR PO SCH (20:15)
[2022-08-11] MEDS ORDERED: MoRPHine SULFATE IR 15 MG TAB (IMMEDIATE RELEASE) PO STA (20:16)
[2022-08-11] MEDS ORDERED: ACETAMINOPHEN 500 MG TAB PO STA (20:17)
[2022-08-12] MEDS: MoRPHine SULFATE IR 15 MG TAB (IMMEDIATE RELEASE) PO PRN (04:59)
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
[2022-08-12 07:45] LABS: Hematocrit (blood only) 34.1 % (40.1-51.0); Hemoglobin 11.8 g/dl (14.0-18.0); Mean Corpuscular Hemoglobin 31.6 pg (25.0-34.0); Mean Corpuscular Hgb Conc 34.6 g/dL (32.0-36.0); Mean Corpuscular Volume 91.2 fL (80.0-100.0); Mean Platelet Volume 8.5 fL (9.4-12.4); Platelet Count 291 K/uL (130-400); RDW Coefficient of Variation 12.5 % (11.5-14.5); RDW Standard Deviation 41.7 fL (36.4-46.3); Red Blood Count 3.74 M/uL (4.63-6.08); White Blood Count 7.03 K/ul (4.8-10.8)
[2022-08-12] MEDS: CARBIDOPA/LEVODOPA 25/100MG TAB PO SCH (08:01)
[2022-08-12] MEDS: rOPINIRole HCL 2 MG TABLET PO SCH (08:01)
[2022-08-12] MEDS: lisinopril 20 MG TAB PO SCH (08:01)
[2022-08-12] MEDS: cilostazoL 100 MG TAB PO SCH (08:01)
[2022-08-12] MEDS: TAMSULOSIN HCL 0.4 MG CAP PO SCH (08:01)
[2022-08-12] MEDS: APIXABAN 5 MG TABLET PO SCH (08:01)
[2022-08-12] MEDS: CYANOCOBALAMIN (B-12) 500 MCG TABLET PO SCH (08:02)
[2022-08-12] MEDS: ROSUVASTATIN CALCIUM 20 MG TAB PO SCH (08:02)
[2022-08-12] MEDS: amLODIPine BESYLATE 5 MG TAB PO SCH (08:02)
[2022-08-12] MEDS: lamoTRIgine 100 MG TAB PO SCH (08:02)
[2022-08-12] MEDS: CHOLECALCIFEROL 1,000 UNITS 25 MCG TAB PO SCH (08:02)
[2022-08-12] MEDS: FOLIC ACID 1 MG TAB PO SCH (08:02)
[2022-08-12] MEDS: lamoTRIgine 25 MG TAB PO SCH (08:02)
[2022-08-12] MEDS: PANTOprazole 40 MG TAB PO SCH (08:02)
[2022-08-12] MEDS: FINASTERIDE 5 MG TAB PO SCH (08:02)
[2022-08-12] MEDS: busPIRone 5 MG TAB PO SCH (08:02)
[2022-08-12] MEDS: CLOPIDOGREL BISULFATE 75 MG TAB PO SCH (08:02)
[2022-08-12 08:05] LABS: BUN Creatinine Ratio 20.1 (10-20); Creatinine Clr Calc Pharmacy 56.7 ml/min; Est GFR (Non-African American) 49.2 ml/min; Magnesium 1.6 mg/dl (1.7-2.4)
[2022-08-12] MEDS: LANTUS PER UNIT CHARGE SQ SCH (08:55)
--- NOTE | 2022-08-12 11:25 | Neurology Progress Note ---
Date of Service August 12, 2022 Assessment & Plan (1) Diabetes mellitus with diabetic neuropathy: (2) Restless legs syndrome: (3) S/P laminectomy with spinal fusion: (4) S/P insertion of spinal cord stimulator: Plan Improve neuropathic pain to the lower limbs in the context of this current hospitalization. Continue with venlafaxine ER 37.5 mg/day, increase to 75 mg/day after 1 week. Further dosage adjustment to be made as an outpatient, may follow-up with Dr. Holman or one of our YONI's in clinic. Restless leg syndrome, stable. Patient may continue with Sinemet and ropinirole. Would consider reducing his dosage of ropinirole as his RLS has been stable. This issue may also be addressed in the outpatient setting. Extensive lumbar fusion, history of spinal cord stimulator. Patient does not have significant spinal or low back pain or radicular symptoms currently. However, if this issue should become symptomatic going forward, may consider additional evaluation with pain management. No further immediate recommendations. Again, have patient follow-up in neurolo gy clinic with either Dr. Holman or one of our YONI's in the next 2 to 3 weeks for ongoing evaluation and management. Admission and Anticipated Discharge Date Admission Date: August 11, 2022 Subjective Follow-up for pain, abnormal movements The patient reports improvement in his distal lower extremity stabbing pain. Venlafaxine ER 37.5 mg/day has been started in the context of this current hospitalization with intention to uptitrate to 75 mg/day after 1 week, further up titration depending on response and tolerability going forward. He denies significant spinal or low back pain at this point in time. Up-to-date spinal imaging again reviewed including MRI and CT of the L-spine. No acute pathology identified although he does have some chronic loosening of pedicle screws bilaterally at S1, no significant change. Plan was for discharge yesterday although he began to exhibit a significant escalation in generalized pain with associated involuntary shaking movement of the limbs. He was treated with morphine sulfate and kept an additional night for observation. This morning, the patient reports that he is feeling fine, no significant pain at this point in time. I do note that he had an EEG completed this past April for further assessment of seizure-like activity. The study was negative for epileptiform abnormalities, however. The patient does indicate that he is completely aware during the episodes of involuntary limb shaking and does endorse the possibility that pain is a likely triggering factor. There has been some concern as to whether or not the episodes could be dystonia. Although I did not observe any of these episodes, the patient denies experiencing abnormal stiffening or posturing of the limbs. He does not have a tremor at baseline. He continues with Sinemet and ropinirole to address restless leg syndrome. This issue has been stable as well. Review of Systems Constitutional: no fever and no chills Neurologic: as per Subjective / HPI Results & Data ([facility]) Vital Signs (Past 12 Hours) Vital Signs Temp Pulse Resp BP Pulse Ox O2 Del Method 08/12/22 07:32 36.7 C 72 16 149/70 H 91 Room Air Laboratory Results WBC 7.03, hemoglobin 11.8, hematocrit 34.1, platelet count 291, sodium 136, potassium 4.0, BUN 29, creatinine 1.44, glucose 78, calcium 9.0, magnesium 1.6 Diagnostic Findings Patient did have an up-to-date lower extremity arterial duplex completed. No significant stenosis or occlusion within the bilateral common femoral, superficial femoral, or popliteal arteries. Monophasic waveforms seen throughout the visualized calf arteries suggestive of diffuse atherosclerotic disease. Exam (Neuro) Neurologic: Oriented to:: Person, Place and Time Memory: Short Term Intact and Remote Intact Attention: Span Intact and Concentration Intact Speech Fluency: negative Dysarthria or Dysfluency Fund of Knowledge: Current Events, Past History and Vocabulary Cranial Nerves: Normal II, III, IV, and VII Motor Strength: Normal Lower Extremities and Normal Upper Extremities Muscle Bulk/Involuntary Movements: No Involuntary Movements; negative Muscle Atrophy Sensation: Light Touch Intact and Pain/Temperature Intact Coordination: Normal; negative Limited Balance, Finger-Nose Abnormal or Heel-Carpenter Abnormal Gait: Normal Station and Gait Coding Level of Care Code 01992 Subseq Hosp Care Lvl 2 Diagnoses Diabetes mellitus with diabetic neuropathy E11.40 Restless legs syndrome G25.81 S/P laminectomy with spinal fusion Z98.1 S/P insertion of spinal cord stimulator Z98.890
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
== END 2022-08-12 16:43 | disposition home health service (06) ==
LOC: ED 13:20 → 3W 13:20 → SUATTDRO 17:55 → 3W 20:59

== ENCOUNTER 2023-04-12 10:03 | Inpatient (IN) ==
[2023-04-12] MEDS ORDERED: SODIUM CHLORIDE 0.9% 500 ML IV STA (10:49)
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
--- NOTE | 2023-04-12 11:29 | XRay Report ---
XR chest 1V portable CLINICAL HISTORY: Chest pain, nonspecific TECHNIQUE: Single frontal radiograph of the chest was obtained. Comparison: Comparison is made to chest radiograph 08/08/2022 FINDINGS: No lines and tubes are seen. Cardiomegaly is noted. The lungs are clear. No evidence of pleural effus ion or pneumothorax. IMPRESSION: No acute chest disease. ACT 112: Negative or not required by law. Electronically signed by: Nura Bergman M.D. 04/12/2023 11:28 AM
[2023-04-12 11:49] LABS: Partial Thromboplastin Ratio 1.1; Partial Thromboplastin Time 29.9 Seconds (21.0-31.0); Prothrombin Time 10.9 Seconds (9.0-12.0)
[2023-04-12 12:01] LABS: Glucose 448 mg/dl (70-99(Fasting))
[2023-04-12 12:02] LABS: Alanine Aminotransferase 3 U/L (7-52); Albumin Globulin Ratio 1.4 (0.9-2); Albumin Level 3.5 gm/dl (3.4-5.0); Alkaline Phosphatase 49 U/L (34-104); Anion Gap 7 (3-11); Aspartate Aminotransferase 9 U/L (13-39); BUN Creatinine Ratio 21.8 (10-20); Bilirubin,Total 0.2 mg/dl (0.2-1.0); Blood Urea Nitrogen 38 mg/dl (6-23); C Reactive Protein 1.07 mg/dl (0-0.5); Carbon Dioxide 26 mmol/L (21-32); Chloride 98 mmol/L (98-107); Est GFR (Non-African American) 38.9 ml/min; Globulin 2.5 gm/dl (2.5-4.0); Lipase 57 U/L (11-82); Potassium 4.9 mmol/L (3.5-5.1); Sodium 131 mmol/L (136-145)
[2023-04-12 12:03] LABS: Troponin I High Sensitivity 5.6 pg/ml (0-20)
--- NOTE | 2023-04-12 12:06 | Electrocardiogram Report ---
Test Reason : Blood Pressure : / mmHG Vent. Rate : 085 BPM Atrial Rate : 085 BPM P-R Int : 164 ms QRS Dur : 116 ms QT Int : 376 ms P-R-T Axes : 049 -11 070 degrees QTc Int : 447 ms Normal sinus rhythm Nonspecific T wave abnormality Abnormal ECG When compared with ECG of 09-AUG-2022 14:19, No significant change was found Confirmed by David Tafoya ([id number]) on 04/12/2023 12:06:06 PM Referred By: Confirmed By:David Tafoya
[2023-04-12] MEDS ORDERED: SODIUM CHLORIDE 0.9% 500 ML IV ONE (12:11)
[2023-04-12] MEDS ORDERED: NovoLIN-R INSULIN PER UNIT CHARGE IV STA (12:11)
--- NOTE | 2023-04-12 12:21 | Ultrasound Report ---
LEFT LOWER EXTREMITY VENOUS DOPPLER CLINICAL HISTORY: Left leg pain and swelling. Evaluate for DVT. COMPARISON STUDY: Bilateral lower extremity arterial Doppler ultrasound August 10, 2022. TECHNIQUE: Sonography of the deep venous system of the left lower extremity was performed. Compressi on and augmentation were evaluated. FINDINGS: The left common femoral, superficial femoral and popliteal veins were compressible. Augmen tation was normal. Flow was shown within the deep calf vessels. Note is made of elongated complex flu id collection which extends from the level of the popliteal fossa to the mid calf. This collection me asures 20.4 x 1.9 x 4.5 cm. This contains no color flow. Subcutaneous edema within the left calf is p resent. IMPRESSION: 1. No evidence of deep venous thrombus within the left lower extremity. 2. Complex elongated fluid collection which extends from the left popliteal fossa to the mid calf, me asuring 20.4 x 1.9 x 4.5 cm. This could reflect a hematoma or ruptured popliteal cyst. A follow-up ul trasound in 3 months to ensure resolution is recommended. ACT 112: Negative or not required by law. Electronically signed by: Brayden Bansal M.D. 04/12/2023 12:20 PM
[2023-04-12] MEDS ORDERED: cefTRIAXone SODIUM 2,000 MG/70 ML BAG IV STA (12:29)
[2023-04-12 13:33] LABS: Basophils # (auto) 0.04 K/uL (0-0.2); Basophils % (auto) 0.5 %; Eosinophils # (auto) 0.23 K/uL (0-0.50); Eosinophils % (auto) 2.9 %; Hematocrit (blood only) 31.4 % (42.0-52.0); Hemoglobin 10.5 g/dl (14.0-18.0); Immature Granulocytes # (auto) 0.02 K/uL (0.01-0.20); Immature Granulocytes % (auto) 0.2 %; Lymphocytes # (auto) 0.87 K/uL (1.2-3.4); Lymphocytes % (auto) 10.8 %; Mean Corpuscular Hemoglobin 30.8 pg (25.0-34.0); Mean Corpuscular Hgb Conc 33.4 g/dL (32.0-36.0); Mean Corpuscular Volume 92.1 fL (80.0-100.0); Mean Platelet Volume 9.4 fL (9.4-12.4); Monocytes # (auto) 0.38 K/uL (0.11-0.59); Monocytes % (auto) 4.7 %; Neutrophils # (auto) 6.49 K/uL (1.40-6.50); Neutrophils % (auto) 80.9 %; Platelet Count 268 K/uL (130-400); RDW Coefficient of Variation 12.2 % (11.5-14.5); RDW Standard Deviation 40.9 fL (36.4-46.3); Red Blood Count 3.41 M/uL (4.70-6.10); White Blood Count 8.03 K/ul (4.8-10.8)
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
[2023-04-12] MEDS ORDERED: GLUCAGON FOR INJ 1 MG VIAL SQ PRN (17:27)
[2023-04-12] MEDS ORDERED: GLUCOSE 10 TAB/TUBE PO PRN (17:27)
[2023-04-12] MEDS ORDERED: IPRATROPIUM BROMIDE/ALBUTEROL respimat INH INH PRN (17:27)
[2023-04-12] MEDS ORDERED: POLYETHYLENE (MIRALAX) 17 GM PACK PO PRN (17:27)
[2023-04-12] MEDS ORDERED: ONDANSETRON INJ 2 MG/ML 2 ML VIAL IV PRN (17:27)
[2023-04-12] MEDS ORDERED: GLUCOSE 40% GEL 15 GM TUBE PO PRN (17:27)
[2023-04-12] MEDS ORDERED: CARBOHYDRATES FOR HYPOGLYCEMIA PO PRN (17:27)
[2023-04-12] MEDS ORDERED: ACETAMINOPHEN 325 MG TAB PO PRN (17:27)
[2023-04-12] MEDS ORDERED: DEXTROSE 50% 50 ML SYRINGE IV PRN (17:27)
[2023-04-12] MEDS: SODIUM CHLORIDE 0.9% 1000ML 1,000 ML IV SCH (17:43)
[2023-04-12] MEDS ORDERED: Patient's HEIGHT &/or WEIGHT Needed SCH (17:45)
[2023-04-12] MEDS ORDERED: IPRATROPIUM BROMIDE HFA INHALER INH PRN (17:57)
[2023-04-12] MEDS ORDERED: ALBUTEROL HFA 8 GM INHALER INH PRN (17:57)
[2023-04-12] MEDS ORDERED: HYDROCORTISONE VAL 0.2% OINT 15GM TUBE EXT PRN (18:10)
[2023-04-12] MEDS: INSULIN ASPART PER UNIT CHARGE SC SCH ×2 (18:27→20:16)
[2023-04-12 20:02] LABS: Appearance Urine Clear (Clear); Bilirubin Urine Negative (Negative); Blood Urine Negative (Negative); Color Urine Yellow; Glucose Urine UA 3+ (Negative); Ketones Urine Negative (Negative); Leukocyte Esterase Urine Negative (Negative); Nitrite Urine Negative (Negative); Protein Urine Negative (Negative); Urobilinogen Urine Negative (Negative); pH Urine 5.5 (4.5-7.5)
[2023-04-12] MEDS: LANTUS PER UNIT CHARGE SQ SCH (20:17)
[2023-04-12] MEDS: CARBIDOPA/LEVODOPA 25/100MG TAB PO SCH (20:19)
[2023-04-12] MEDS: busPIRone 5 MG TAB PO SCH (20:20)
[2023-04-12] MEDS: lamoTRIgine 100 MG TAB PO SCH (20:20)
[2023-04-12] MEDS: MAGNESIUM OXIDE 400 MG TAB PO SCH (20:21)
[2023-04-12] MEDS: rOPINIRole HCL 2 MG TABLET PO SCH (20:21)
[2023-04-12] MEDS: VENLAFAXINE HCL XR 75 MG CAPXR PO SCH (20:22)
[2023-04-12] MEDS: IMIPRAMINE HCL 50 MG TAB PO SCH (20:45)
[2023-04-12] MEDS ORDERED: IMIPRAMINE PAMOATE 100 MG PO SCH (21:00)
[2023-04-13] MEDS: SODIUM CHLORIDE 0.9% 1000ML 1,000 ML IV SCH ×2 (01:24→12:27)
[2023-04-13] MEDS: CARBIDOPA/LEVODOPA 25/100MG TAB PO SCH ×3 (06:33→21:02)
[2023-04-13 06:51] LABS: Basophils # (auto) 0.04 K/uL (0-0.2); Basophils % (auto) 0.5 %; Eosinophils # (auto) 0.28 K/uL (0-0.50); Eosinophils % (auto) 3.7 %; Hemoglobin 10.1 g/dl (14.0-18.0); Immature Granulocytes # (auto) 0.03 K/uL (0.01-0.20); Immature Granulocytes % (auto) 0.4 %; Lymphocytes # (auto) 1.38 K/uL (1.2-3.4); Lymphocytes % (auto) 18.1 %; Mean Corpuscular Hemoglobin 30.6 pg (25.0-34.0); Mean Corpuscular Hgb Conc 33.7 g/dL (32.0-36.0); Mean Corpuscular Volume 90.9 fL (80.0-100.0); Mean Platelet Volume 9.1 fL (9.4-12.4); Monocytes # (auto) 0.47 K/uL (0.11-0.59); Monocytes % (auto) 6.2 %; Neutrophils # (auto) 5.43 K/uL (1.40-6.50); Neutrophils % (auto) 71.1 %; Platelet Count 256 K/uL (130-400); RDW Coefficient of Variation 11.9 % (11.5-14.5); White Blood Count 7.63 K/ul (4.8-10.8)
[2023-04-13 07:10] LABS: BUN Creatinine Ratio 20.7 (10-20); Calcium 8.7 mg/dl (8.6-10.3); Creatinine Clr Calc Pharmacy 59.5 ml/min; Est GFR (African American) 58.6 ml/min; Est GFR (Non-African American) 50.5 ml/min; Potassium 4.5 mmol/L (3.5-5.1)
[2023-04-13 07:27] LABS: Estimated Average Glucose 298 mg/dl
[2023-04-13] MEDS: busPIRone 5 MG TAB PO SCH ×2 (08:37→21:01)
[2023-04-13] MEDS: CHOLECALCIFEROL 1,000 UNITS 25 MCG TAB PO SCH (08:38)
[2023-04-13] MEDS: CYANOCOBALAMIN (B-12) 500 MCG TABLET PO SCH (08:38)
[2023-04-13] MEDS: lamoTRIgine 100 MG TAB PO SCH ×2 (08:39→21:03)
[2023-04-13] MEDS: FENOFIBRATE NANOCRYSTALLIZED 145 MG TABLET PO SCH (08:39)
[2023-04-13] MEDS: EZETIMIBE 10 MG TABLET PO SCH (08:39)
[2023-04-13] MEDS: FOLIC ACID 1 MG TAB PO SCH (08:39)
[2023-04-13] MEDS: MAGNESIUM OXIDE 400 MG TAB PO SCH ×2 (08:40→21:04)
[2023-04-13] MEDS: ROSUVASTATIN CALCIUM 20 MG TAB PO SCH (08:40)
[2023-04-13] MEDS: LANTUS PER UNIT CHARGE SQ SCH ×2 (08:56→21:03)
[2023-04-13] MEDS: INSULIN ASPART PER UNIT CHARGE SC SCH ×4 (08:56→21:03)
[2023-04-13] MEDS ORDERED: cefTRIAXone SODIUM 2,000 MG in DEXTROSE 5% 50 ML IV SCH (13:00)
--- NOTE | 2023-04-13 17:24 | Hospitalist Progress Note ---
Date of Service April 13, 2023 Assessment & Plan (1) Ruptured Bakers cyst: Plan: left leg ruptured riojas's cyst vs hematoma interventional radiology reviewed his imaging - at this time I&D is not recommended by IR I have asked orthopedics to evaluate for any additional recommendations while awaiting consult with ortho apply ice frequently, elevate the limb, etc (2) De Quervain's tenosynovitis, left: Plan: x 2 weeks will obtain x-rays of wrist to ensure no advanced arthritis voltaren gel 2 gm QID ordered thumb-spica splint for immobilization consider short course of PO steroids but defer for now can f/u with [facility] for this (3) Cellulitis: Plan: concern for at time of admission -- LLE ruled out - skin on LLE today completely normal cellulitis does not resolve in <24 hours erythema was likely inflammation from #1 can stop IV rocephin (4) CHINO (acute kidney injury): Plan: peak Cr 1.7 now 1.4 which is baseline stop IV fluids repeat BMP am (5) HTN (hypertension): Plan: BPs were low at presentation Thus, flomax, lisinopril, and amlodipine were all held BPs starting to rise Monitor overnight and if they continue to be high then start 1 or more meds back (6) Afib: Plan: History of Remains in NSR here Is not on any AV marti agents Typically takes BID Eliquis but on hold due to #1 above Resume Eliquis when ok with orthopedics (7) COPD, moderate: Plan: Are basilar rales due to COPD or other interstitial process? CXR from admission wnl Stop IV fluids Reassess lung exam tomorrow (8) Coronary artery disease: (9) Obstructive sleep apnea: Plan: CPAP (10) Personal history of deep vein thrombosis: Plan: noted no DVT on LLE doppler this admission typically on Eliquis 5mg BID - HELD currently due to #1 above await ortho consultation resume Eliquis when ok with orthopedics (11) History of TIA (transient ischemic attack): Plan: noted resume Eliquis + plavix when safe to do so in the setting of #1 above (12) Chronic kidney disease, stage 3a: Plan: baseline CrCl upper 50s concomitant CHINO this admission but resolved BMP am for stability (13) Tobacco dependence: Plan: nicoderm patch 21mg daily patient smoked for 30+ years, quite for 20 years, then resumed again 1 ppd (14) Uncontrolled diabetes mellitus with hyperglycemia: Plan: Continue lantus BID Adjust novolog a1c noted (12%) previous a1c's were all <7% etiology?? (15) Anemia: Plan: chronic, etiology uncertain b12 level low-normal at 293 in February 2023 - on supplementation check folate AM check Fe studies AM recheck CBC am Plan extensively updated at bedside Admission and Anticipated Discharge Date Admission Date: April 12, 2023 Subjective patient resting in bed comfortably at bedside patient has been able to ambulate today although it is uncomfortable most of the pain is the left calf region very "tight" in the calf and the popliteal fossa region patient also c/o 2 weeks of left thumb/wrist pain this started after doing a fair amount of work/tasks at his home has been using a standard wrist splint for this pain continues tele overnight wnl Review of Systems Review of Systems: gen - no fevers, normal appetite cv - no chest pain pulm - no dyspnea or cough GI - no nausea/emesis Physical Exam Physical Exam: gen - NAD, pleasant neck - no JVD mouth - MMM heart - RRR, s1 s2 lungs - mild rales b/l bases R>L abd - soft NT ND BS+ musculo - significant swelling popliteal fossa region on left extending into the left calf; the left leg is much larger than the right leg; he is mildly tender to touch in the left calf region; passive ROM of left knee is mildly restricted due to pain & swelling; mild warmth with palpation of the skin in this region. Left wrist/hand - tender to palpation over the left thumb tendons moving proximally towards the wrist; +ashvin testing; there is mild crepitus at the base of the thumb with passive ROM skin - no Cellulitis of the left leg anteriorly or posteriorly vascular - pulses b/l feet 2+ Results & Data Results & Data Vital Signs (Past 12 Hours) Vital Signs Temp Pulse Pulse Resp BP Pulse Ox O2 Del Method 04/13/23 16:16 36.8 C 65 16 130/69 92 Room Air 04/13/23 14:33 72 04/13/23 12:17 36.5 C 76 16 140/74 94 Room Air 04/13/23 08:16 36.8 C 72 16 149/80 H 90 Room Air 04/13/23 07:34 Room Air 04/13/23 05:51 66 Laboratory Results Laboratory Results - last 24 hr 04/13/23 04/13/23 04/13/23 05:40 05:40 05:40 WBC 7.63 RBC 3.30 L Hgb 10.1 L Hct 30.0 L MCV 90.9 MCH 30.6 MCHC 33.7 RDW Std Deviation 40.0 RDW Coeff of Balwinder 11.9 Plt Count 256 MPV 9.1 L Immature Gran % (Auto) 0.4 Neut % (Auto) 71.1 Lymph % (Auto) 18.1 [place] % (Auto) 6.2 Eos % (Auto) 3.7 Baso % (Auto) 0.5 Neut # (Auto) 5.43 Lymph # (Auto) 1.38 [place] # (Auto) 0.47 Eos # (Auto) 0.28 Baso # (Auto) 0.04 Immature Gran # (Auto) 0.03 Sodium 136 Potassium 4.5 Chloride 105 Carbon Dioxide 25 Anion Gap 6 BUN 29 H Creatinine 1.40 D Est Cr Clr Drug Dosing 59.5 Est GFR ( Amer) 58.6 Est GFR (Non-Af Amer) 50.5 BUN/Creatinine Ratio 20.7 H Glucose 120 H POC Glucose Estimat Average Glucose 298 Hemoglobin A1c 12.0 H Calcium 8.7 04/13/23 04/13/23 04/13/23 08:00 11:56 17:33 WBC RBC Hgb Hct MCV MCH MCHC RDW Std Deviation RDW Coeff of Balwinder Plt Count MPV Immature Gran % (Auto) Neut % (Auto) Lymph % (Auto) [place] % (Auto) Eos % (Auto) Baso % (Auto) Neut # (Auto) Lymph # (Auto) [place] # (Auto) Eos # (Auto) Baso # (Auto) Immature Gran # (Auto) Sodium Potassium Chloride Carbon Dioxide Anion Gap BUN Creatinine Est Cr Clr Drug Dosing Est GFR ( Amer) Est GFR (Non-Af Amer) BUN/Creatinine Ratio Glucose POC Glucose 106 H 214 H 149 H Estimat Average Glucose Hemoglobin A1c Calcium 04/13/23 20:37 WBC RBC Hgb Hct MCV MCH MCHC RDW Std Deviation RDW Coeff of Balwinder Plt Count MPV Immature Gran % (Auto) Neut % (Auto) Lymph % (Auto) [place] % (Auto) Eos % (Auto) Baso % (Auto) Neut # (Auto) Lymph # (Auto) [place] # (Auto) Eos # (Auto) Baso # (Auto) Immature Gran # (Auto) Sodium Potassium Chloride Carbon Dioxide Anion Gap BUN Creatinine Est Cr Clr Drug Dosing Est GFR ( Amer) Est GFR (Non-Af Amer) BUN/Creatinine Ratio Glucose POC Glucose 255 H Estimat Average Glucose Hemoglobin A1c Calcium PG Care Time/CCT Total # of Minutes Spent Total Time Spent with Patient: Total time spent is greater than 50% in coordination of care (as documented) at patient's floor/unit and/or counseling patient: Coding Level of Care Code 77800 SUB INP/OBS CARE 3/50MIN Diagnoses Ruptured Bakers cyst M66.0 De Quervain's tenosynovitis, left M65.4 Cellulitis L03.116 Laterality: left Site of cellulitis: extremity Site of cellulitis of extremity: lower extremity CHINO (acute kidney injury) N17.9 HTN (hypertension) I10 Hypertension type: essential hypertension Afib I48.0 Atrial fibrillation type: paroxysmal COPD, moderate J44.9 Coronary artery disease I25.10 Obstructive sleep apnea G47.33 Personal history of deep vein thrombosis Z86.718 History of TIA (transient ischemic attack) Z86.73 Chronic kidney disease, stage 3a N18.31 Tobacco dependence F17.200 Uncontrolled diabetes mellitus with hyperglycemia E11.65 Anemia D64.9 Anemia type: unspecified type (3) Cellulitis Laterality: left Site of cellulitis: extremity Site of cellulitis of extremity: lower extremity Qualified Code(s): L03.116 - Cellulitis of left lower limb (5) HTN (hypertension) Hypertension type: essential hypertension Qualified Code(s): I10 - Essential (primary) hypertension (6) Afib Atrial fibrillation type: paroxysmal Qualified Code(s): I48.0 - Paroxysmal atrial fibrillation (15) Anemia Anemia type: unspecified type Qualified Code(s): D64.9 - Anemia, unspecified
--- NOTE | 2023-04-13 18:04 | XRay Report ---
XR wrist LT 2V CLINICAL HISTORY: Left thumb pain at base COMPARISON: None FINDINGS: Alignment of the left wrist is anatomic. There is no acute fracture. No osseous lesions ar e noted. There is moderate radiocarpal joint space narrowing with osteophytosis. There is mild to mod erate osteoarthritis of the left first carpometacarpal joint. Vascular calcification is incidentally noted. IMPRESSION: 1. No acute fracture or dislocation within the left wrist. 2. Moderate radiocarpal joint osteoarthritis. Mild to moderate osteoarthritis of the left first carpo metacarpal joint. ACT 112: Negative or not required by law. Electronically signed by: Brayden Bansal M.D. 04/13/2023 6:02 PM
[2023-04-13] MEDS: DICLOFENAC SOD 1% GEL 100 GM TUBE EXT SCH ×2 (21:00→21:16)
[2023-04-13] MEDS: IMIPRAMINE HCL 50 MG TAB PO SCH (21:02)
[2023-04-13] MEDS: rOPINIRole HCL 2 MG TABLET PO SCH (21:03)
[2023-04-13] MEDS: VENLAFAXINE HCL XR 75 MG CAPXR PO SCH (21:04)
[2023-04-14] MEDS ORDERED: MoRPHine SULFATE 2 MG/ML CARP IV STA (06:03)
[2023-04-14 07:34] LABS: Basophils # (auto) 0.04 K/uL (0-0.2); Basophils % (auto) 0.4 %; Eosinophils # (auto) 0.22 K/uL (0-0.50); Hematocrit (blood only) 34.8 % (42.0-52.0); Hemoglobin 12.2 g/dl (14.0-18.0); Immature Granulocytes # (auto) 0.04 K/uL (0.01-0.20); Immature Granulocytes % (auto) 0.4 %; Lymphocytes # (auto) 1.54 K/uL (1.2-3.4); Lymphocytes % (auto) 14.3 %; Mean Corpuscular Hgb Conc 35.1 g/dL (32.0-36.0); Mean Corpuscular Volume 88.3 fL (80.0-100.0); Mean Platelet Volume 8.8 fL (9.4-12.4); Monocytes # (auto) 0.65 K/uL (0.11-0.59); Neutrophils # (auto) 8.28 K/uL (1.40-6.50); Neutrophils % (auto) 76.9 %; Platelet Count 301 K/uL (130-400); RDW Coefficient of Variation 12.1 % (11.5-14.5); RDW Standard Deviation 39.3 fL (36.4-46.3); Red Blood Count 3.94 M/uL (4.70-6.10); White Blood Count 10.77 K/ul (4.8-10.8)
[2023-04-14 07:53] LABS: BUN Creatinine Ratio 16.7 (10-20); Calcium 9.6 mg/dl (8.6-10.3); Est GFR (African American) 59.6 ml/min; Est GFR (Non-African American) 51.4 ml/min; Potassium 4.6 mmol/L (3.5-5.1)
[2023-04-14] MEDS ORDERED: KETOROLAC TROMETHAMINE 15 MG/ML VIAL IV ONE (07:58)
[2023-04-14] MEDS: MAGNESIUM OXIDE 400 MG TAB PO SCH (08:06)
[2023-04-14] MEDS: CARBIDOPA/LEVODOPA 25/100MG TAB PO SCH ×2 (08:06→12:21)
[2023-04-14] MEDS: CHOLECALCIFEROL 1,000 UNITS 25 MCG TAB PO SCH (08:06)
[2023-04-14] MEDS: busPIRone 5 MG TAB PO SCH (08:06)
[2023-04-14] MEDS: lamoTRIgine 100 MG TAB PO SCH (08:06)
[2023-04-14] MEDS: CYANOCOBALAMIN (B-12) 500 MCG TABLET PO SCH (08:07)
[2023-04-14] MEDS: EZETIMIBE 10 MG TABLET PO SCH (08:08)
[2023-04-14] MEDS: ROSUVASTATIN CALCIUM 20 MG TAB PO SCH (08:08)
[2023-04-14] MEDS: FOLIC ACID 1 MG TAB PO SCH (08:08)
[2023-04-14] MEDS: DICLOFENAC SOD 1% GEL 100 GM TUBE EXT SCH ×3 (08:08→17:02)
[2023-04-14] MEDS: FENOFIBRATE NANOCRYSTALLIZED 145 MG TABLET PO SCH (08:08)
[2023-04-14] MEDS: INSULIN ASPART PER UNIT CHARGE SC SCH ×3 (08:16→17:28)
[2023-04-14] MEDS: ACETAMINOPHEN 500 MG TAB PO SCH ×2 (08:17→13:34)
[2023-04-14] MEDS: MoRPHine SULFATE IR 15 MG TAB (IMMEDIATE RELEASE) PO PRN ×2 (08:17→14:21)
[2023-04-14] MEDS: LANTUS PER UNIT CHARGE SQ SCH (08:21)
[2023-04-14] MEDS ORDERED: NICOTINE 21 MG/24 HR TDSY TD SCH (09:00)
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
[2023-04-14] MEDS ORDERED: metFORMIN HCL 500 MG TAB PO SCH (17:00)
--- NOTE | 2023-04-14 17:42 | Discharge Summary ---
Date of Service date of admission - April 12, 2023 date of discharge - April 14, 2023 Admission HPI Per Admitting Provider Mick is a 72 year old male w/ PmHx atrial fibrillation on Eliquis, anemia, arthritis, CHF, CKD stage III, COPD moderate, CAD, T2DM, GERD, TIA in 2013, HTN, YVETTE, pulmonary HTN, RLS coming in to the ED for evaluation of leg pain. Patient states that for the past few weeks he has had L popliteal pain that has been constant. There was some gradual swelling to the leg as well over that time period. Pain was mostly located at the back of the leg and did not radiate down the leg but was exacerbated by pressure on the leg with walking. He then noticed redness at the distal LLE last night along with some warmth. He denies any fevers, chills, sweats, nausea, vomiting, dysuria, diarrhea. He did have urinary frequency. He states that he had surgery at that L knee years ago for meniscal injury but no recent surgeries. He follows with [facility] [place] and was last seen in January with a joint injection. No recent trauma to the knee or exacerbating factors. In the ED WBC 8, Hgb 10.5, creatinine 1.74, glucose 448, lactate 2.2, ESR 23, CRP 1.07. Doppler study revealed no DVT however complex elongated fluid collection from left popliteal fossa to mid calf measuring 20.4x1.9x4.5cm. Could reflect hematoma or ruptured popliteal cyst. He was given 2g Ceftriaxone, 1L NSS bolus, 6U insulin. Principal Diagnosis 1. left leg pain - either due to ruptured Hawk's cyst or hematoma of the calf muscle region 2. uncontrolled type 2 diabetes - hemoglobin a1c 12% 3. de Quervain's tenosynovitis of left thumb/wrist 4. chronic tobacco use 5. chronic narcotic use Discharge Exam gen - NAD, pleasant neck - no JVD mouth - MMM heart - RRR, s1 s2 lungs - mild dry rales b/l bases R>L abd - soft NT ND BS+ musculo - significant swelling popliteal fossa region on left extending into the left calf; the left leg is much larger than the right leg; he is mildly tender to touch in the left calf region; passive ROM of left knee is mildly restricted due to pain & swelling. Left wrist/hand - tender to palpation over the left thumb tendons moving proximally towards the wrist; +ashvin testing; there is mild crepitus at the base of the thumb with passive ROM skin - no cellulitis of the left leg anteriorly or posteriorly vascular - pulses b/l feet 2+ Discharge Data Allergies Allergy/AdvReac Type Severity Reaction Status Date / Time shellfish derived Allergy Intermediate HIVES Verified 04/12/23 13:31 Fish Containing Products Allergy Mild RASH Verified 04/12/23 13:31 Consultations [facility] PT Ordered Studies Chest X-Ray 04/12/23 10:49 XR chest 1V portable CLINICAL HISTORY: Chest pain, nonspecific TECHNIQUE: Single frontal radiograph of the chest was obtained. Comparison: Comparison is made to chest radiograph 08/08/2022 FINDINGS: No lines and tubes are seen. Cardiomegaly is noted. The lungs are clear. No evidence of pleural effusion or pneumothorax. IMPRESSION: No acute chest disease. ACT 112: Negative or not required by law. Electronically signed by: Nura Bergman M.D. 04/12/2023 11:28 AM Venous Doppler Study 04/12/23 10:49 LEFT LOWER EXTREMITY VENOUS DOPPLER CLINICAL HISTORY: Left leg pain and swelling. Evaluate for DVT. COMPARISON STUDY: Bilateral lower extremity arterial Doppler ultrasound August 10, 2022. TECHNIQUE: Sonography of the deep venous system of the left lower extremity was performed. Compression and augmentation were evaluated. FINDINGS: The left common femoral, superficial femoral and popliteal veins were compressible. Augmentation was normal. Flow was shown within the deep calf vessels. Note is made of elongated complex fluid collection which extends from the level of the popliteal fossa to the mid calf. This collection measures 20.4 x 1.9 x 4.5 cm. This contains no color flow. Subcutaneous edema within the left calf is present. IMPRESSION: 1. No evidence of deep venous thrombus within the left lower extremity. 2. Complex elongated fluid collection which extends from the left popliteal fossa to the mid calf, measuring 20.4 x 1.9 x 4.5 cm. This could reflect a hematoma or ruptured popliteal cyst. A follow-up ultrasound in 3 months to ensure resolution is recommended. ACT 112: Negative or not required by law. Electronically signed by: Brayden Bansal M.D. 04/12/2023 12:20 PM Wrist X-Ray 04/13/23 17:20 XR wrist LT 2V CLINICAL HISTORY: Left thumb pain at base COMPARISON: None FINDINGS: Alignment of the left wrist is anatomic. There is no acute fracture. No osseous lesions are noted. There is moderate radiocarpal joint space narrowing with osteophytosis. There is mild to moderate osteoarthritis of the left first carpometacarpal joint. Vascular calcification is incidentally noted. IMPRESSION: 1. No acute fracture or dislocation within the left wrist. 2. Moderate radiocarpal joint osteoarthritis. Mild to moderate osteoarthritis of the left first carpometacarpal joint. ACT 112: Negative or not required by law. Electronically signed by: Brayden Bansal M.D. 04/13/2023 6:02 PM Diabetes Follow up Diabetes Follow-up Needed for HgbA1c >9% Hospital Course (1) Ruptured Bakers cyst: Left leg -- ruptured hawk's cyst vs hematoma Interventional radiology reviewed his imaging - I&D not recommended by IR Orthopedics saw patient in consult and also recommended conservative Rx including pain meds, ice, elevation, etc By time of discharge his pain was much improved and he was able to weight-bear (2) De Quervain's tenosynovitis, left: x 2 weeks x-rays of wrist without fracture there is mild to moderate osteoarthritis of the left first carpometacarpal joint, however advised - voltaren gel 2 gm QID thumb-spica splint for immobilization f/u with [facility] as outpatient for recheck (3) Cellulitis: concern for at time of admission -- LLE --> * ruled out - less than 24 hours following admission the skin of the LLE was completely normal * erythema was likely inflammation from #1 antibiotics were discontinued (4) CHINO (acute kidney injury): pre-renal - due to low blood pressure peak Cr 1.7 now 1.38 at discharge which is baseline (5) Chronic narcotic dependence: The patient follows with REENA Perez, with the [facility] in [place] for his chronic morphine usage. I called and spoke with Ms Wright and asked for permission to make a modest adjustment in his morphine due to the acute pain of his left leg. She gave permission to increase the morphine to QID dosing for 1 week. Thus, a 1-week supply of morphine 15mg qid prn was prescribed to the patient at discharge. He will follow-up with Ms Wright for ongoing care. (6) HTN (hypertension): BPs were low at presentation Thus, flomax, lisinopril, and amlodipine were all held BPs humphrey later in the stay At discharge the 3 meds above were resumed with one change - lisinopril dose was LOWERED to 20mg once daily (7) Afib: History of Was in NSR while here Is not on any AV marti agents Typically takes BID Eliquis but initially was on hold due to #1 above Resume Eliquis 24 hours after discharge (8) COPD, moderate: no issues while here (9) Coronary artery disease: no issues while here cont amlodipine, zetia, fenofibrate, lisinopril, crestor resume plavix 48 hours post-discharge (10) Obstructive sleep apnea: cont CPAP (11) Personal history of deep vein thrombosis: noted no DVT on LLE doppler this admission typically on Eliquis 5mg BID - HELD initially due to #1 above orthopedics gave the OK for resumption of Eliquis thus, will resume Eliquis 24 hours post-discharge (12) History of TIA (transient ischemic attack): noted resume Eliquis 24 hours post-discharge resume Plavix 48 hours post-discharge (13) Chronic kidney disease, stage 3a: baseline CrCl upper 50s concomitant CHINO this admission but resolved (14) Tobacco dependence: patient smoked for 30+ years, quit for 20 years, then resumed again 1 ppd counseled to daniela nicoderm patch as needed (15) Uncontrolled diabetes mellitus with hyperglycemia: Hba1c 12% previous a1c's were all <7% He had had several courses of steroids over the last few months which likely contributed Patient was agreeable to starting insulin again Based on insulin requirements while here recommended institution of lantus 30 units QAM Cont metformin 1gm BID as previous Patient previously took insulin in the past and felt comfortable resuming the lantus (16) Anemia: chronic, etiology uncertain b12 level low-normal at 293 in February 2023 - on supplementation folate was wnl recent Fe studies were wnl hemoglobin was 12.2 at discharge Plan cleared by PT to return home with his Total Time Total Time Spent Total Time Spent (In Minutes): 45 Discharge Plan Discharge Items Patient Disposition: Home - Self-Care Reason For Visit: SEVERE left leg pain Discharge Diagnosis: 1. left leg pain - either due to ruptured Hawk's cyst or hematoma of the calf muscle region 2. uncontrolled diabetes - hemoglobin a1c 12% 3. "de Quervain's tenosynovitis" of left thumb/wrist 4. chronic tobacco use Activity: As commented below Activity Comment: light activities only; nothing strenuous at this time Exercise/Sports: Wait until after follow-up appointment Driving/Machine Use: NO DRIVING if using morphine pain medication Non-emergency contact: Primary Care Provider and Surgeon Call non-emergency contact if: you have any medication questions, your symptoms worsen, your pain is not controlled, your pain is worsening and your pain is unusual for you Follow-up/Referrals: Sandra Davis DO [Primary Care Provider] - (5 days for recheck of diabetes & left leg ) Adelso Deleon MD [Physician] - (1-2 weeks recheck of left thumb, left knee, left leg ) Diet: Carb Consistent or DM2 and Heart Healthy Addtl Attending Provider Instructions: Mr Sullivan - You were hospitalized for severe left leg pain. We did not find a DVT blood clot in the left leg, but you either had a ruptured Hawk's cyst (also known as popliteal cyst) OR you had developed a hematoma in the left calf area. Please see handout on Hawk's cyst. You were seen by [facility]. They did not recommend any surgery or drainage of the fluid collection in the leg. In the midst of the above problems your kidney number (creatinine) was elevated upon arrival. The creatinine returned to your usual baseline level (1.3). Your blood sugars were quite high and we added insulin to improve the sugars. Finally it appears you have a type of tendonitis of the left thumb called "de Quervain's tenosynovitis" (see handout). Recommendations - 1. after getting permission from your pain management provider we have given you a 1 week supply of morphine to be used as follows - * morphine 15mg every 6 hours as needed for pain * when you see the pain management provider please bring the bottle from the prescription I am providing as well as your previous bottle already at home to your next appointment 2. you can use [id number] tylenol (acetaminophen) 1000mg every 8 hours as needed for pain relief, maximum 3000mg in 24 hours 3. ice for 30 minutes four times a day to the left calf region for the next 5-7 days 4. elevate your leg on pillows when resting 5. light activities only; don't over do it over the next 1-2 weeks 6. for diabetes - * START lantus pen - 30 units once daily each morning, start this TOMORROW morning * check your blood sugars twice daily -- each morning, then at least 1 other time later in the day (before dinner, before bedtime, etc) * CONTINUE your metformin as previous twice daily 7. Eliquis - you can resume this TOMORROW morning, 04/15/23. 8. clopidogrel (plavix) - you can resume this on the AM of 04/16/23. 9. cilostazol - you can rseume this on the AM of 04/16/23. 10. left thumb tendonitis - diclofenac gel - 2 grams up to 4 times each day rubbed into the area of pain. Also, please use the thumb spica splint given to you at [facility]. wear it as much as possible. 11. finally - please LOWER your lisinopril to 20mg once daily for now. Follow-up - see separate section Return to [facility] if - * you have worsening pain in your left leg despite the above medications * you have uncontrolled blood sugars consistently over 300 * you have worsening swelling, redness, etc of the left leg * any other concerns It was our pleasure to care for you! Dr Bernal Pending Studies at Discharge: No Stand-Alone Forms: My [facility], Smoking Cessation Medications and DC Order Prescriptions: New acetaminophen [Tylenol Extra Strength] 500 mg Tablet 1,000 mg PO TID 7 Days Qty: 42 0RF Rx Instructions: purchase yvem-knn-nxldsze diclofenac sodium [Voltaren Arthritis Pain] 1 % Gel 2 g EXT QID PRN (Reason: left thumb pain) Qty: 1 0RF Rx Instructions: purchase tigq-ocy-qyqlleq insulin glargine [Lantus Solostar U-100 Insulin] 100 unit/mL (3 mL) insulin pen 30 unit subcut QAM Qty: 15 2RF (DME) pen needle, diabetic [Easy Comfort Pen [place]] 33 gauge x 5/32" needle See Rx Instructions .Route Qty: 100 2RF Rx Instructions: As directed with lantus pens. Continued folic acid 1 mg tablet 1 mg PO QAM Qty: 90 1RF buspirone 5 mg tablet 5 mg PO BID Qty: 180 5RF rosuvastatin [Crestor] 20 mg tablet 20 mg PO QAM Qty: 90 3RF amlodipine 5 mg tablet 5 mg PO QAM Qty: 90 3RF Combivent Respimat 20-100 mcg/actuation mist 1 puff inhalation Q6H PRN (Reason: sob) Qty: 4 5RF magnesium oxide [MagOx] 400 mg (241.3 mg magnesium) tablet 400 mg PO BID Qty: 60 0RF Eliquis 5 mg tablet 5 mg PO BID Qty: 180 1RF hydrocortisone 2.5 % ointment 1 applic topical DAILY PRN (Reason: skin irritation) Qty: 28.35 2RF Rx Instructions: Apply BID for 1 week, then daily as needed to the scrotum for itching. cyanocobalamin (vitamin B-12) [Vitamin B-12] 500 mcg tablet 1,000 mcg PO QAM imipramine pamoate 100 mg capsule 100 mg PO HS Qty: 90 1RF (DME) blood-glucose meter [OneTouch Verio Reflect Start] Kit See Rx Instructions .Route Qty: 1 0RF Rx Instructions: use to test blood sugar QD carbidopa-levodopa 25-100 mg tablet 2 tab PO TID 90 Days Qty: 540 1RF Rx Instructions: Take 2 tabs in the morning, 2 tabs at noon, and 2 tabs in the evening. pramipexole 0.5 mg tablet 0.5 mg PO HS Qty: 30 5RF Rx Instructions: Take 0.5 mg (1 tab) three hours before bedtime venlafaxine 75 mg capsule,extended release 24hr 75 mg PO HS Qty: 90 1RF fenofibrate nanocrystallized 145 mg tablet 145 mg PO QAM Qty: 90 0RF cholecalciferol (vitamin D3) 25 mcg (1,000 unit) capsule 1,000 unit PO QAM tamsulosin [Flomax] 0.4 mg capsule 0.4 mg PO BID Qty: 180 3RF finasteride 5 mg tablet 5 mg PO QAM Qty: 90 3RF ezetimibe 10 mg tablet 10 mg PO QAM ropinirole 4 mg tablet 4 mg PO HS Changed lisinopril 20 mg tablet 20 mg PO DAILY Qty: 180 3RF (DME) Energy InformaticsTouch Verio test strips Strip See Rx Instructions .Route Qty: 100 3RF Rx Instructions: check blood sugars each AM and AT LEAST 1 other time later in the day. morphine 15 mg tablet 15 mg PO Q6H PRN (Reason: Pain) Qty: 28 0RF (DME) lancets [Onetouch Delica Safety Lancet] 30 gauge misc See Rx Instructions .Route Qty: 100 3RF Rx Instructions: test blood sugar twice daily Held cilostazol 100 mg tablet 100 mg PO BID Qty: 180 3RF Hold Instructions: Resume on 04/16/23. clopidogrel 75 mg tablet 75 mg PO DAILY Qty: 90 3RF Hold Instructions: Resume on 04/16/23. No Action metformin 500 mg tablet 1,000 mg PO BID Qty: 360 1RF lamotrigine 100 mg tablet 100 mg PO BID Qty: 180 0RF Discharge Orders: Discharge Order (Routine); Ordered 04/14/23 Ordered By: Jesus Parada/Other Patient Handouts: Insulin Glargine Pen Injector ..., High Blood Sugar (Hyperglycemia), Managing Type 2 Diabetes, De Quervain Tenosynovitis, ED Hawk's Cyst Admission Data Admit Date/Time: 04/12/23 15:01 Attending Provider: Jesus Bernal Admit Provider: Andrew Sabillon Primary Care Provider: Sandra Davis Other Providers: Hubert Morfin ; Adelso Deleon Other Interventions: Discharge Summary Assessment (RN) Last Done: 04/14/23 17:47 Coding Level of Care Code 59094 INP/OBS DISCH >30 MIN Diagnoses Ruptured Bakers cyst M66.0 De Quervain's tenosynovitis, left M65.4 Cellulitis L03.116 Laterality: left Site of cellulitis: extremity Site of cellulitis of extremity: lower extremity CHINO (acute kidney injury) N17.9 Chronic narcotic dependence F11.20 HTN (hypertension) I10 Hypertension type: essential hypertension Afib I48.0 Atrial fibrillation type: paroxysmal COPD, moderate J44.9 Coronary artery disease I25.10 Obstructive sleep apnea G47.33 Personal history of deep vein thrombosis Z86.718 History of TIA (transient ischemic attack) Z86.73 Chronic kidney disease, stage 3a N18.31 Tobacco dependence F17.200 Uncontrolled diabetes mellitus with hyperglycemia E11.65 Anemia D64.9 Anemia type: unspecified type
== END 2023-04-14 18:05 | disposition home or self-care (01) | DRG 558 ==
LOC: ED 10:03 → SUATTDRO 15:01 → 2N 15:01
DX: J44.9 Chronic obstructive pulmonary disease, unspecified; E11.22 Type 2 diabetes mellitus with diabetic chronic kidney disease; Z79.84 Long term (current) use of oral hypoglycemic drugs; Z86.16 Personal history of COVID-19; I50.9 Heart failure, unspecified; N17.9 Acute kidney failure, unspecified; E83.42 Hypomagnesemia; D64.9 Anemia, unspecified; K21.9 Gastro-esophageal reflux disease without esophagitis; N18.31 Chronic kidney disease, stage 3a; Z98.1 Arthrodesis status; Z86.14 Personal history of Methicillin resistant Staphylococcus aureus infection; I25.10 Atherosclerotic heart disease of native coronary artery without angina pectoris; Z86.73 Personal history of transient ischemic attack (TIA), and cerebral infarction without residual deficits; Z86.718 Personal history of other venous thrombosis and embolism; I27.20 Pulmonary hypertension, unspecified; I48.91 Unspecified atrial fibrillation; M65.352 Trigger finger, left little finger; E11.40 Type 2 diabetes mellitus with diabetic neuropathy, unspecified; Z86.711 Personal history of pulmonary embolism; M66.0 Rupture of popliteal cyst; F17.210 Nicotine dependence, cigarettes, uncomplicated; E53.8 Deficiency of other specified B group vitamins; I13.0 Hypertensive heart and chronic kidney disease with heart failure and stage 1 through stage 4 chronic kidney disease, or unspecified chronic kidney disease; Z79.01 Long term (current) use of anticoagulants; G47.33 Obstructive sleep apnea (adult) (pediatric); M65.4 Radial styloid tenosynovitis [de Quervain]; E11.51 Type 2 diabetes mellitus with diabetic peripheral angiopathy without gangrene; E11.65 Type 2 diabetes mellitus with hyperglycemia; M79.81 Nontraumatic hematoma of soft tissue

== ENCOUNTER 2023-10-05 20:49 | Observation (INO) ==
[2023-10-05 21:27] LABS: Base Excess VBG 4.5 mEq/L; HCO3 VBG 35 mmol/L; Oxygen Saturation VBG < 60.0 %; PCO2 VBG 81 mmHg (38-50); PO2 VBG 35 mmHg; pH VBG 7.24 (7.36-7.41)
[2023-10-05 21:30] LABS: Basophils # (auto) 0.03 K/uL (0.00-0.20); Basophils % (auto) 0.5 %; Eosinophils # (auto) 0.47 K/uL (0.00-0.50); Hematocrit (blood only) 38.3 % (42.0-52.0); Hemoglobin 11.6 g/dl (14.0-18.0); Immature Granulocytes # (auto) 0.02 K/uL (0.01-0.20); Immature Granulocytes % (auto) 0.3 %; Lymphocytes # (auto) 0.91 K/uL (1.20-3.40); Lymphocytes % (auto) 15.5 %; Mean Corpuscular Hemoglobin 29.5 pg (25.0-34.0); Mean Corpuscular Hgb Conc 30.3 g/dL (32.0-36.0); Mean Corpuscular Volume 97.5 fL (80.0-100.0); Mean Platelet Volume 9.2 fL (9.4-12.4); Monocytes # (auto) 0.39 K/uL (0.11-0.59); Monocytes % (auto) 6.6 %; Neutrophils # (auto) 4.05 K/uL (1.40-6.50); Neutrophils % (auto) 69.1 %; Platelet Count 282 K/uL (130-400); RDW Coefficient of Variation 13.1 % (11.5-14.5); RDW Standard Deviation 46.6 fL (36.4-46.3); Red Blood Count 3.93 M/uL (4.70-6.10); White Blood Count 5.87 K/ul (4.8-10.8)
[2023-10-05] MEDS ORDERED: CEFEPIME 2,000 MG/20 ML VIAL IV STA (21:33)
[2023-10-05] MEDS ORDERED: ALBUT/IPRATROP 3MG/0.5MG NEB 3 ML VIAL NEB STA (21:40)
[2023-10-05] MEDS ORDERED: methylPREDNISolone 125 MG/2 ML VIAL IV STA (21:40)
[2023-10-05 21:47] LABS: Anion Gap 3 (3-11); BUN Creatinine Ratio 11.9 (10-20); Blood Urea Nitrogen 34 mg/dl (6-23); Carbon Dioxide 34 mmol/L (21-32); Chloride 100 mmol/L (98-107); Est GFR (African American) 24.5 ml/min; Est GFR (Non-African American) 21.2 ml/min; Glucose 95 mg/dl (70-99(Fasting)); Potassium 5.2 mmol/L (3.5-5.1); Sodium 137 mmol/L (136-145)
[2023-10-05 21:53] LABS: Troponin I High Sensitivity 9.7 pg/ml (0-20)
[2023-10-05 21:56] LABS: INR 1.1 (0.9-1.1); Prothrombin Time 11.6 Seconds (9.0-12.0)
--- NOTE | 2023-10-05 21:56 | Emergency Department Note ---
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 10/07/23 07:54 Dose: 20 mg Documented By: Admin: 10/06/23 08:43 Dose: 20 mg Documented By: FAUZIA Sodium Bicarbonate (Sodium Bicarb 8.4% Inj 50 Meq/50 Ml Syr) 50 meq IV NOW STA Stop: 10/06/23 05:27 Last Admin: 10/06/23 05:52 Dose: 50 meq Documented By: DEN Tamsulosin HCl (Tamsulosin Hcl 0.4 Mg Cap) 0.4 mg PO BID VJ Stop: 11/05/23 08:59 Last Admin: 10/07/23 07:53 Dose: 0.4 mg Documented By: Admin: 10/06/23 21:34 Dose: 0.4 mg Documented By: Admin: 10/06/23 08:43 Dose: 0.4 mg Documented By: FAUZIA Venlafaxine HCl (Venlafaxine Hcl Xr 75 Mg Capxr) 75 mg PO VJ Stop: 11/05/23 20:59 Last Admin: 10/06/23 21:34 Dose: 75 mg Documented By: ESDRAS Vitamin D (Cholecalciferol 1,000 Units 25 Mcg Tab) 1,000 units PO QAM VJ Stop: 11/05/23 08:59 Last Admin: 10/07/23 07:51 Dose: 1,000 units Documented By: Admin: 10/06/23 08:44 Dose: 1,000 units Documented By: HS Imaging Data Radiologist's Impression: Chest X-Ray 10/05/23 21:05 XR chest 1V not portable CLINICAL HISTORY: Sepsis TECHNIQUE: Single frontal radiograph of the chest was obtained. Comparison: Comparison is made to chest radiograph 04/12/2023 FINDINGS: No lines and tubes are seen. The cardiomediastinal silhouette is normal. Lungs are underinflated but clear. No evidence of pleural effusion or pneumothorax. IMPRESSION: No acute chest disease. ACT 112: Negative or not required by law. Electronically signed by: Nura Bergman M.D. 10/06/2023 7:41 AM Discharge Plan Visit Data Chief Complaint: Shortness of Breath/Dyspnea ED Provider: David Mendez Discharge Problem: Acute respiratory failure with hypoxia and hypercarbia, Acute exacerbation of chronic obstructive airways disease Patient Disposition: Admitted As Inpatient Condition: Fair Discharge Instructions Interventions: ED Discharge Assessment Last Done: 10/06/23 01:56
[2023-10-05 22:04] LABS: Alanine Aminotransferase < 3 U/L (7-52); Albumin Globulin Ratio 1.4 (0.9-2); Alkaline Phosphatase 47 U/L (34-104); Aspartate Aminotransferase 9 U/L (13-39); Bilirubin,Total 0.3 mg/dl (0.2-1.0); Globulin 2.9 gm/dl (2.5-4.0); Magnesium 2.4 mg/dl (1.7-2.4); Total Protein 6.9 gm/dl (6.0-8.3)
[2023-10-05 22:17] LABS: Adenovirus PCR Not Detected (NotDetected); Bordetella parapertussis PCR Not Detected (NotDetected); Bordetella pertussis PCR Not Detected (NotDetected); Chlamydia pneumoniae PCR Not Detected (NotDetected); Coronavirus 229E PCR Not Detected (NotDetected); Coronavirus CoV-2 (COVID19)PCR Not Detected (NotDetected); Coronavirus HKU1 PCR Not Detected (NotDetected); Coronavirus NL63 PCR Not Detected (NotDetected); Coronavirus OC43PCR Not Detected (NotDetected); Human Metapneumovirus PCR Not Detected (NotDetected); Influenza A PCR Not Detected (NotDetected); Influenza B PCR Not Detected (NotDetected); Mycoplasma pneumoniae PCR Not Detected (NotDetected); Parainfluenza Virus 1 PCR Not Detected (NotDetected); Parainfluenza Virus 2 PCR Not Detected (NotDetected); Parainfluenza Virus 3 PCR Not Detected (NotDetected); Parainfluenza Virus 4 PCR Not Detected (NotDetected); Respiratory Syncytial VirusPCR Not Detected (NotDetected); Rhinovirus/Enterovirus PCR Not Detected (NotDetected)
[2023-10-05] MEDS ORDERED: SODIUM CHLORIDE 0.9% 500 ML IV ONE (23:04)
[2023-10-05 23:53] LABS: HCO3 VBG 36 mmol/L; Oxygen Saturation VBG 69.7 %; PCO2 VBG 78 mmHg (38-50); PO2 VBG 44 mmHg; pH VBG 7.27 (7.36-7.41)
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
[2023-10-06] MEDS ORDERED: GLUCAGON FOR INJ 1 MG VIAL SQ PRN (01:54)
[2023-10-06] MEDS ORDERED: GLUCOSE 10 TAB/TUBE PO PRN (01:54)
[2023-10-06] MEDS ORDERED: AZITHROMYCIN 500 MG in DEXTROSE 5% 250 ML IV STA (01:54)
[2023-10-06] MEDS ORDERED: guaiFENesin/DEXTROM SYRUP 200MG/20MG 10ML UDC PO PRN (01:54)
[2023-10-06] MEDS ORDERED: DEXTROSE 50% 50 ML SYRINGE IV PRN (01:54)
[2023-10-06] MEDS ORDERED: DICLOFENAC SOD 1% GEL 100 GM TUBE EXT PRN (01:54)
[2023-10-06] MEDS ORDERED: CARBOHYDRATES FOR HYPOGLYCEMIA PO PRN (01:54)
[2023-10-06] MEDS ORDERED: GLUCOSE 40% GEL 15 GM TUBE PO PRN (01:54)
[2023-10-06] MEDS ORDERED: IPRATROPIUM BROMIDE/ALBUTEROL respimat INH INH PRN (01:54)
[2023-10-06] MEDS ORDERED: HYDROCORTISONE 2.5% CR 30 GM TUBE EXT PRN (01:54)
[2023-10-06] MEDS ORDERED: IPRATROPIUM BROMIDE HFA INHALER INH PRN (02:37)
[2023-10-06] MEDS ORDERED: ALBUTEROL HFA 8 GM INHALER INH PRN (02:37)
[2023-10-06] MEDS ORDERED: LACTATED RINGER'S 500 ML IV SCH (03:00)
[2023-10-06 05:21] LABS: BUN Creatinine Ratio 15.9 (10-20); Calcium 8.7 mg/dl (8.6-10.3); Creatinine Clr Calc Pharmacy 39.8 ml/min; Est GFR (African American) 32.6 ml/min; Est GFR (Non-African American) 28.1 ml/min; Potassium 6.1 mmol/L (3.5-5.1)
[2023-10-06] MEDS ORDERED: SODIUM BICARB 8.4% INJ 50 MEQ/50 ML SYR IV STA (05:26)
[2023-10-06] MEDS: ALBUT/IPRATROP 3MG/0.5MG NEB 3 ML VIAL NEB SCH ×5 (07:21→22:57)
[2023-10-06 07:22] LABS: Estimated Average Glucose 137 mg/dl; Hemoglobin A1C 6.4 % (4.5-5.6)
--- NOTE | 2023-10-06 07:42 | XRay Report ---
XR chest 1V not portable CLINICAL HISTORY: Sepsis TECHNIQUE: Single frontal radiograph of the chest was obtained. Comparison: Comparison is made to chest radiograph 04/12/2023 FINDINGS: No lines and tubes are seen. The cardiomediastinal silhouette is normal. Lungs are underinflated but clear. No evidence of pleural effusion or pneumothorax. IMPRESSION: No acute chest disease. ACT 112: Negative or not required by law. Electronically signed by: Nura Bergman M.D. 10/06/2023 7:41 AM
[2023-10-06] MEDS: lisinopril 10 MG TAB PO SCH (08:43)
[2023-10-06] MEDS: EZETIMIBE 10 MG TAB PO SCH (08:43)
[2023-10-06] MEDS: TAMSULOSIN HCL 0.4 MG CAP PO SCH ×2 (08:43→21:34)
[2023-10-06] MEDS: ROSUVASTATIN CALCIUM 20 MG TAB PO SCH (08:43)
[2023-10-06] MEDS: LEVOTHYROXINE SODIUM 75 MCG TABLET PO SCH (08:43)
[2023-10-06] MEDS: predniSONE 20 MG TAB PO SCH (08:43)
--- NOTE | 2023-10-06 08:43 | Electrocardiogram Report ---
Test Reason : Blood Pressure : / mmHG Vent. Rate : 071 BPM Atrial Rate : 071 BPM P-R Int : 160 ms QRS Dur : 124 ms QT Int : 400 ms P-R-T Axes : 040 -12 018 degrees QTc Int : 434 ms Normal sinus rhythm with sinus arrhythmia Non-specific intra-ventricular conduction delay Borderline ECG When compared with ECG of 12-APR-2023 11:01, No significant change was found Confirmed by Rebel Tripp ([id number]) on 10/06/2023 8:43:32 AM Referred By: REFERRED SELF Confirmed By:Rebel Tripp
[2023-10-06] MEDS: amLODIPine BESYLATE 5 MG TAB PO SCH (08:44)
[2023-10-06] MEDS: APIXABAN 5 MG TABLET PO SCH ×2 (08:44→21:35)
[2023-10-06] MEDS: FENOFIBRATE NANOCRYSTALLIZED 145 MG TABLET PO SCH (08:44)
[2023-10-06] MEDS: lamoTRIgine 25 MG TAB PO SCH (08:44)
[2023-10-06] MEDS: CLOPIDOGREL BISULFATE 75 MG TAB PO SCH (08:44)
[2023-10-06] MEDS: CHOLECALCIFEROL 1,000 UNITS 25 MCG TAB PO SCH (08:44)
[2023-10-06] MEDS: FINASTERIDE 5 MG TAB PO SCH (08:44)
[2023-10-06] MEDS: CYANOCOBALAMIN (B-12) 500 MCG TABLET PO SCH (08:44)
[2023-10-06] MEDS: CARBIDOPA/LEVODOPA 25/100MG TAB PO SCH ×3 (08:44→18:02)
[2023-10-06] MEDS: busPIRone 5 MG TAB PO SCH ×2 (08:44→21:33)
[2023-10-06] MEDS: LANTUS PER UNIT CHARGE SC SCH (08:54)
[2023-10-06] MEDS: INSULIN ASPART PER UNIT CHARGE SC SCH ×4 (08:55→21:32)
[2023-10-06] MEDS ORDERED: NON-FORMULARY MEDICATION (Testosterone 20.25 mg/1.25 gram (1.62 %) gel in metered-dose pum TOP SCH (09:00)
[2023-10-06 12:17] LABS: Appearance Urine Clear (Clear); Bacteria Urine Automated Negative (Negative); Bilirubin Urine Negative (Negative); Blood Urine Negative (Negative); Color Urine Yellow; Glucose Urine UA Trace (Negative); Ketones Urine Trace (Negative); Leukocyte Esterase Urine Negative (Negative); Nitrite Urine Negative (Negative); Protein Urine Trace (Negative); RBC Urine Automated 0-4 /hpf (0-4); Specific Gravity Urine 1.019 (1.000-1.030); Urobilinogen Urine Negative (Negative)
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
[2023-10-06 15:02] LABS: Calcium 9.2 mg/dl (8.6-10.3); Creatinine Clr Calc Pharmacy 47.6 ml/min; Est GFR (African American) 40.5 ml/min; Est GFR (Non-African American) 34.9 ml/min; Potassium 5.6 mmol/L (3.5-5.1)
[2023-10-06 19:29] LABS: A calco-baum cmplx NotReported Not Detected (NotDetected); Bact fragilis Not Reported Not Detected (NotDetected); C auris Not Reported Not Detected (NotDetected); Calbicans Not Reported Not Detected (NotDetected); Candida glabrata Not Reported Not Detected (NotDetected); Candida krusei Not Reported Not Detected (NotDetected); Cneoformans/gatti Not Reported Not Detected (NotDetected); Cparapsilosis Not Reported Not Detected (NotDetected); E cloacae compx Not Reported Not Detected (NotDetected); Efaecalis Not Reported Not Detected (NotDetected); Efaecium Not Reported Not Detected (NotDetected); Enterobacterales Not Reported Not Detected (NotDetected); Escherichia coli Not Reported Not Detected (NotDetected); H influenzae Not Reported Not Detected (NotDetected); K aerogenes Not Reported Not Detected (NotDetected); Koxytoca Not Reported Not Detected (NotDetected); Kpneumoniae grp Not Reported Not Detected (NotDetected); Lmonocyt Not Reported Not Detected (NotDetected); N meningitidis Not Reported Not Detected (NotDetected); P aeruginosa Not Reported Not Detected (NotDetected); Proteus spp Not Reported Not Detected (NotDetected); Salmonella spp Not Reported Not Detected (NotDetected); Smarcescens Not Reported Not Detected (NotDetected); Staph lugdunensis Not Reported Not Detected (NotDetected); Staph spp. Not Reported DETECTED (NotDetected); Staphaureus Not Reported Not Detected (NotDetected); Staphepi Not Reported DETECTED (NotDetected); Stenmaltophilia Not Reported Not Detected (NotDetected); Strep agal(GrpB) Not Reported Not Detected (NotDetected); Strep pneum Not Reported Not Detected (NotDetected); Strep pyog (GrpA) Not Reported Not Detected (NotDetected); Strep spp Not Reported Not Detected (NotDetected)
[2023-10-06 19:40] LABS: Staphylococcus spp. DETECTED (NotDetected); mecAC Resistant Gene DETECTED (NotDetected)
[2023-10-06 19:41] LABS: Staphylococcus epidermidis DETECTED (NotDetected)
[2023-10-06] MEDS ORDERED: PRAMIPEXOLE DIHYDROCHLO 0.5 MG TAB PO SCH (21:00)
[2023-10-06] MEDS ORDERED: FAMOTIDINE 20 MG TAB PO SCH (21:00)
[2023-10-06] MEDS ORDERED: VENLAFAXINE HCL XR 75 MG CAPXR PO SCH (21:00)
[2023-10-06] MEDS ORDERED: IMIPRAMINE PAMOATE 100 MG PO SCH (21:00)
[2023-10-06] MEDS ORDERED: MAGNESIUM OXIDE 400 MG TAB PO SCH (21:00)
[2023-10-06] MEDS ORDERED: lamoTRIgine 100 MG TAB PO SCH (21:00)
[2023-10-06] MEDS: MoRPHine SULFATE IR 15 MG TAB (IMMEDIATE RELEASE) PO PRN (21:36)
[2023-10-07] MEDS: ALBUT/IPRATROP 3MG/0.5MG NEB 3 ML VIAL NEB SCH ×4 (02:11→15:44)
[2023-10-07 04:24] LABS: BUN Creatinine Ratio 19.6 (10-20); Calcium 8.7 mg/dl (8.6-10.3); Creatinine Clr Calc Pharmacy 53.5 ml/min; Est GFR (African American) 46.7 ml/min; Est GFR (Non-African American) 40.3 ml/min; Potassium 4.4 mmol/L (3.5-5.1)
[2023-10-07 04:26] LABS: Hematocrit (blood only) 33.4 % (42.0-52.0); Hemoglobin 10.9 g/dl (14.0-18.0); Mean Corpuscular Hemoglobin 30.2 pg (25.0-34.0); Mean Corpuscular Hgb Conc 32.6 g/dL (32.0-36.0); Mean Corpuscular Volume 92.5 fL (80.0-100.0); Mean Platelet Volume 9.2 fL (9.4-12.4); Platelet Count 274 K/uL (130-400); RDW Coefficient of Variation 13.1 % (11.5-14.5); RDW Standard Deviation 43.5 fL (36.4-46.3); Red Blood Count 3.61 M/uL (4.70-6.10); White Blood Count 7.75 K/ul (4.8-10.8)
[2023-10-07] MEDS: LEVOTHYROXINE SODIUM 75 MCG TABLET PO SCH (05:53)
[2023-10-07] MEDS ORDERED: AZITHROMYCIN 250 MG in DEXTROSE 5% 250 ML IV SCH (06:00)
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
[2023-10-07] MEDS: CLOPIDOGREL BISULFATE 75 MG TAB PO SCH (07:51)
[2023-10-07] MEDS: CHOLECALCIFEROL 1,000 UNITS 25 MCG TAB PO SCH (07:51)
[2023-10-07] MEDS: amLODIPine BESYLATE 5 MG TAB PO SCH (07:51)
[2023-10-07] MEDS: CARBIDOPA/LEVODOPA 25/100MG TAB PO SCH ×2 (07:51→13:18)
[2023-10-07] MEDS: FINASTERIDE 5 MG TAB PO SCH (07:52)
[2023-10-07] MEDS: CYANOCOBALAMIN (B-12) 500 MCG TABLET PO SCH (07:52)
[2023-10-07] MEDS: lisinopril 10 MG TAB PO SCH (07:52)
[2023-10-07] MEDS: EZETIMIBE 10 MG TAB PO SCH (07:52)
[2023-10-07] MEDS: APIXABAN 5 MG TABLET PO SCH (07:53)
[2023-10-07] MEDS: TAMSULOSIN HCL 0.4 MG CAP PO SCH (07:53)
[2023-10-07] MEDS: lamoTRIgine 25 MG TAB PO SCH (07:53)
[2023-10-07] MEDS: busPIRone 5 MG TAB PO SCH (07:53)
[2023-10-07] MEDS: FENOFIBRATE NANOCRYSTALLIZED 145 MG TABLET PO SCH (07:53)
[2023-10-07] MEDS: ROSUVASTATIN CALCIUM 20 MG TAB PO SCH (07:54)
[2023-10-07] MEDS: predniSONE 20 MG TAB PO SCH (07:54)
[2023-10-07] MEDS: MoRPHine SULFATE IR 15 MG TAB (IMMEDIATE RELEASE) PO PRN (07:59)
[2023-10-07] MEDS: INSULIN ASPART PER UNIT CHARGE SC SCH ×2 (09:04→13:17)
[2023-10-07] MEDS: LANTUS PER UNIT CHARGE SC SCH (09:05)
--- NOTE | 2023-10-07 15:47 | Discharge Summary ---
Date of Service October 07, 2023 Admission HPI Per Admitting Provider Mick is a 73-year-old man with a long past medical history including atrial fibrillation (on Eliquis and Plavix), CHF, T2DM, hyperlipidemia, hypothyroidism, hypertension, CKD, and pulmonary hypertension, who presents to the emergency room with worsening confusion and lethargy x2 days. According to his , who is at bedside, and provided most of HPI, he had grown increasingly more confused, not able to understand anyone without having things repeated to him. He also became sleepier over the last 36 hours. According to his , he slept at least 9 hours, took a 4-hour nap in the afternoon, and then wanted to go to sleep for the night an hour after waking up from his nap. His then insisted he come to the hospital so he did. On arrival, he became hypoxic requiring BiPAP. On labs, WBC count was normal at 5.87, as well as rest of CBC. CMP showed slight hyperkalemia of 5.2, and CHINO, with Cr-2.86 (baseline 1.4-1.5). Lactate and procalcitonin were both negative. Respiratory Biofire was negative but VBG showed hypercarbic metabolic acidosis. He received a dose of IV cefepime, an albuterol neb, and IV methylprednisolone 125 mg. Hospitalist service was then consulted for admission. On admission, he denies fever, headache, vision changes, dizziness, chest pain, nausea, vomiting, abdominal pain, constipation, or diarrhea. does report that he smokes and vapes daily. Admission Exam Per Admitting Provider General: Tired but alert elderly man in no acute distress HEENT: PERRLA. Normal conjunctiva, anicteric sclera. Oropharynx normal. Respiratory: On BiPAP. Unable to auscultate due to BiPAP. Cardiovascular: Unable to auscultate due to BiPAP. GI: Soft abdomen. Nontender x4 quadrants Neuro: Alert and oriented x3. Principal Diagnosis COPD exarcerbation Discharge Exam Constitutional WD/WN, vitals as above Respiratory no respiratory distress Auscultation: + diminished lung sounds (right lung) and + wheezes (left lower bases) Cardiovascular RRR, no murmur, no edema Gastrointestinal (Abdomen) normal bowel sounds, soft, nontender, no hepatosplenomegaly Skin no rashes, warm and dry Discharge Data Allergies Allergy/AdvReac Type Severity Reaction Status Date / Time shellfish derived Allergy Intermediate HIVES Verified 10/05/23 22:06 Fish Containing Products Allergy Mild RASH Verified 10/05/23 22:06 Consultations 10/05/23 23:06 ED Decision to Admit Stat Ordered Studies Microbiology 10/05/23 21:06 Blood Aerobic Blood Culture - Preliminary Coag neg staph not lugdunensis 10/05/23 21:06 Blood Anaerobic Blood Culture - Preliminary No growth in Anaerobic bottle after 24 hours. 10/05/23 21:49 Blood Aerobic Blood Culture - Preliminary No growth in Aerobic bottle after 24 hours. 10/05/23 21:49 Blood Anaerobic Blood Culture - Preliminary No growth in Anaerobic bottle after 24 hours. Labs 10/05/23 10/05/23 10/05/23 21:06 21:08 23:05 WBC 5.87 RBC 3.93 L Hgb 11.6 L Hct 38.3 L MCV 97.5 MCH 29.5 MCHC 30.3 L RDW Std Deviation 46.6 H RDW Coeff of Balwinder 13.1 Plt Count 282 MPV 9.2 L Immature Gran % (Auto) 0.3 Neut % (Auto) 69.1 Lymph % (Auto) 15.5 Mckenzie % (Auto) 6.6 Eos % (Auto) 8.0 Baso % (Auto) 0.5 Neut # (Auto) 4.05 Lymph # (Auto) 0.91 L Mckenzie # (Auto) 0.39 Eos # (Auto) 0.47 Baso # (Auto) 0.03 Immature Gran # (Auto) 0.02 PT 11.6 INR 1.1 APTT 29.0 PTT Ratio 1.0 VBG pH 7.24 L VBG pCO2 81 H VBG pO2 35 VBG HCO3 35 VBG O2 Saturation < 60.0 VBG Base Excess 4.5 Sodium 137 Potassium 5.2 H Chloride 100 Carbon Dioxide 34 H Anion Gap 3 BUN 34 H Creatinine 2.86 H Est Cr Clr Drug Dosing Not Reportable Est GFR ( Amer) 24.5 Est GFR (Non-Af Amer) 21.2 BUN/Creatinine Ratio 11.9 Glucose 95 POC Glucose Estimat Average Glucose Hemoglobin A1c Lactate 0.6 Calcium 9.0 Magnesium 2.4 Total Bilirubin 0.3 AST 9 L ALT < 3 L Alkaline Phosphatase 47 Troponin I High Sens 9.7 Total Protein 6.9 Albumin 4.0 Globulin 2.9 Albumin/Globulin Ratio 1.4 Procalcitonin Cancelled < 0.05 Urine Color Urine Appearance Urine pH Ur Specific [place] Urine Protein Urine Glucose (UA) Urine Ketones Urine Blood Urine Nitrite Urine Bilirubin Urine Urobilinogen Ur Leukocyte Esterase Urine WBC (Auto) Urine RBC (Auto) U Hyaline Cast (Auto) U Epithel Cells (Auto) Urine Bacteria (Auto) Nasal Screen MRSA (PCR) Adenovirus (PCR) Not Detected B. pertussis DNA (PCR) Not Detected B.parapertussis DNA PCR Not Detected C. pneumoniae DNA (PCR) Not Detected Coronavirus OC43 (PCR) Not Detected Coronavirus HKU1 (PCR) Not Detected Coronavirus 229E (PCR) Not Detected SARS-CoV-2 (PCR) Not Detected Coronavirus NL63 (PCR) Not Detected Human Metapneumovir PCR Not Detected Influenza Type A (PCR) Not Detected Influenza Type B (PCR) Not Detected M. pneumoniae (PCR) Not Detected Parainfluenza 1 (PCR) Not Detected Parainfluenza 2 (PCR) Not Detected Parainfluenza 3 (PCR) Not Detected Parainfluenza 4 (PCR) Not Detected RSV (PCR) Not Detected Entero/Rhino (PCR) Not Detected Staphylococcus sp PCR DETECTED A mecA/C-Methicil Resis Gene DETECTED A Staph epidermidis (PCR) DETECTED A Bld Cult ID Panel PCR See PCR Comment 10/05/23 10/06/23 10/06/23 23:45 03:22 04:34 WBC RBC Hgb Hct MCV MCH MCHC RDW Std Deviation RDW Coeff of Balwinder Plt Count MPV Immature Gran % (Auto) Neut % (Auto) Lymph % (Auto) Mckenzie % (Auto) Eos % (Auto) Baso % (Auto) Neut # (Auto) Lymph # (Auto) Mckenzie # (Auto) Eos # (Auto) Baso # (Auto) Immature Gran # (Auto) PT INR APTT PTT Ratio VBG pH 7.27 L VBG pCO2 78 H VBG pO2 44 VBG HCO3 36 VBG O2 Saturation 69.7 VBG Base Excess 6.0 Sodium 133 L Potassium 6.1 H* Chloride 101 Carbon Dioxide 28 Anion Gap 4 BUN 36 H Creatinine 2.26 H D Est Cr Clr Drug Dosing 39.8 Est GFR ( Amer) 32.6 Est GFR (Non-Af Amer) 28.1 BUN/Creatinine Ratio 15.9 Glucose 204 H POC Glucose Estimat Average Glucose 137 Hemoglobin A1c 6.4 H Lactate Calcium 8.7 Magnesium Total Bilirubin AST ALT Alkaline Phosphatase Troponin I High Sens Total Protein Albumin Globulin Albumin/Globulin Ratio Procalcitonin Urine Color Urine Appearance Urine pH Ur Specific [place] Urine Protein Urine Glucose (UA) Urine Ketones Urine Blood Urine Nitrite Urine Bilirubin Urine Urobilinogen Ur Leukocyte Esterase Urine WBC (Auto) Urine RBC (Auto) U Hyaline Cast (Auto) U Epithel Cells (Auto) Urine Bacteria (Auto) Nasal Screen MRSA (PCR) Negative Adenovirus (PCR) B. pertussis DNA (PCR) B.parapertussis DNA PCR C. pneumoniae DNA (PCR) Coronavirus OC43 (PCR) Coronavirus HKU1 (PCR) Coronavirus 229E (PCR) SARS-CoV-2 (PCR) Coronavirus NL63 (PCR) Human Metapneumovir PCR Influenza Type A (PCR) Influenza Type B (PCR) M. pneumoniae (PCR) Parainfluenza 1 (PCR) Parainfluenza 2 (PCR) Parainfluenza 3 (PCR) Parainfluenza 4 (PCR) RSV (PCR) Entero/Rhino (PCR) Staphylococcus sp PCR mecA/C-Methicil Resis Gene Staph epidermidis (PCR) Bld Cult ID Panel PCR 10/06/23 10/06/23 10/06/23 08:40 11:59 12:00 WBC RBC Hgb Hct MCV MCH MCHC RDW Std Deviation RDW Coeff of Balwinder Plt Count MPV Immature Gran % (Auto) Neut % (Auto) Lymph % (Auto) Mckenzie % (Auto) Eos % (Auto) Baso % (Auto) Neut # (Auto) Lymph # (Auto) Mckenzie # (Auto) Eos # (Auto) Baso # (Auto) Immature Gran # (Auto) PT INR APTT PTT Ratio VBG pH VBG pCO2 VBG pO2 VBG HCO3 VBG O2 Saturation VBG Base Excess Sodium Potassium Chloride Carbon Dioxide Anion Gap BUN Creatinine Est Cr Clr Drug Dosing Est GFR ( Amer) Est GFR (Non-Af Amer) BUN/Creatinine Ratio Glucose POC Glucose 163 H 173 H Estimat Average Glucose Hemoglobin A1c Lactate Calcium Magnesium Total Bilirubin AST ALT Alkaline Phosphatase Troponin I High Sens Total Protein Albumin Globulin Albumin/Globulin Ratio Procalcitonin Urine Color Yellow Urine Appearance Clear Urine pH 5.0 Ur Specific [place] 1.019 Urine Protein Trace H Urine Glucose (UA) Trace H Urine Ketones Trace H Urine Blood Negative Urine Nitrite Negative Urine Bilirubin Negative Urine Urobilinogen Negative Ur Leukocyte Esterase Negative Urine WBC (Auto) 1-5 Urine RBC (Auto) 0-4 U Hyaline Cast (Auto) 5-10 H U Epithel Cells (Auto) 10-20 H Urine Bacteria (Auto) Negative Nasal Screen MRSA (PCR) Adenovirus (PCR) B. pertussis DNA (PCR) B.parapertussis DNA PCR C. pneumoniae DNA (PCR) Coronavirus OC43 (PCR) Coronavirus HKU1 (PCR) Coronavirus 229E (PCR) SARS-CoV-2 (PCR) Coronavirus NL63 (PCR) Human Metapneumovir PCR Influenza Type A (PCR) Influenza Type B (PCR) M. pneumoniae (PCR) Parainfluenza 1 (PCR) Parainfluenza 2 (PCR) Parainfluenza 3 (PCR) Parainfluenza 4 (PCR) RSV (PCR) Entero/Rhino (PCR) Staphylococcus sp PCR mecA/C-Methicil Resis Gene Staph epidermidis (PCR) Bld Cult ID Panel PCR 10/06/23 10/06/23 10/06/23 14:01 17:57 20:18 WBC RBC Hgb Hct MCV MCH MCHC RDW Std Deviation RDW Coeff of Balwinder Plt Count MPV Immature Gran % (Auto) Neut % (Auto) Lymph % (Auto) Mckenzie % (Auto) Eos % (Auto) Baso % (Auto) Neut # (Auto) Lymph # (Auto) Mckenzie # (Auto) Eos # (Auto) Baso # (Auto) Immature Gran # (Auto) PT INR APTT PTT Ratio VBG pH VBG pCO2 VBG pO2 VBG HCO3 VBG O2 Saturation VBG Base Excess Sodium 135 L Potassium 5.6 H Chloride 99 Carbon Dioxide 34 H Anion Gap 2 L BUN 36 H Creatinine 1.89 H D Est Cr Clr Drug Dosing 47.6 Est GFR ( Amer) 40.5 Est GFR (Non-Af Amer) 34.9 BUN/Creatinine Ratio 19.0 Glucose 158 H POC Glucose 151 H 163 H Estimat Average Glucose Hemoglobin A1c Lactate Calcium 9.2 Magnesium Total Bilirubin AST ALT Alkaline Phosphatase Troponin I High Sens Total Protein Albumin Globulin Albumin/Globulin Ratio Procalcitonin Urine Color Urine Appearance Urine pH Ur Specific [place] Urine Protein Urine Glucose (UA) Urine Ketones Urine Blood Urine Nitrite Urine Bilirubin Urine Urobilinogen Ur Leukocyte Esterase Urine WBC (Auto) Urine RBC (Auto) U Hyaline Cast (Auto) U Epithel Cells (Auto) Urine Bacteria (Auto) Nasal Screen MRSA (PCR) Adenovirus (PCR) B. pertussis DNA (PCR) B.parapertussis DNA PCR C. pneumoniae DNA (PCR) Coronavirus OC43 (PCR) Coronavirus HKU1 (PCR) Coronavirus 229E (PCR) SARS-CoV-2 (PCR) Coronavirus NL63 (PCR) Human Metapneumovir PCR Influenza Type A (PCR) Influenza Type B (PCR) M. pneumoniae (PCR) Parainfluenza 1 (PCR) Parainfluenza 2 (PCR) Parainfluenza 3 (PCR) Parainfluenza 4 (PCR) RSV (PCR) Entero/Rhino (PCR) Staphylococcus sp PCR mecA/C-Methicil Resis Gene Staph epidermidis (PCR) Bld Cult ID Panel PCR 10/07/23 10/07/23 10/07/23 03:37 08:14 12:09 WBC 7.75 RBC 3.61 L Hgb 10.9 L Hct 33.4 L MCV 92.5 D MCH 30.2 MCHC 32.6 RDW Std Deviation 43.5 RDW Coeff of Balwinder 13.1 Plt Count 274 MPV 9.2 L Immature Gran % (Auto) Neut % (Auto) Lymph % (Auto) Mckenzie % (Auto) Eos % (Auto) Baso % (Auto) Neut # (Auto) Lymph # (Auto) Mckenzie # (Auto) Eos # (Auto) Baso # (Auto) Immature Gran # (Auto) PT INR APTT PTT Ratio VBG pH VBG pCO2 VBG pO2 VBG HCO3 VBG O2 Saturation VBG Base Excess Sodium 135 L Potassium 4.4 D Chloride 99 Carbon Dioxide 32 Anion Gap 4 BUN 33 H Creatinine 1.68 H Est Cr Clr Drug Dosing 53.5 Est GFR ( Amer) 46.7 Est GFR (Non-Af Amer) 40.3 BUN/Creatinine Ratio 19.6 Glucose 273 H POC Glucose 148 H 194 H Estimat Average Glucose Hemoglobin A1c Lactate Calcium 8.7 Magnesium Total Bilirubin AST ALT Alkaline Phosphatase Troponin I High Sens Total Protein Albumin Globulin Albumin/Globulin Ratio Procalcitonin Urine Color Urine Appearance Urine pH Ur Specific [place] Urine Protein Urine Glucose (UA) Urine Ketones Urine Blood Urine Nitrite Urine Bilirubin Urine Urobilinogen Ur Leukocyte Esterase Urine WBC (Auto) Urine RBC (Auto) U Hyaline Cast (Auto) U Epithel Cells (Auto) Urine Bacteria (Auto) Nasal Screen MRSA (PCR) Adenovirus (PCR) B. pertussis DNA (PCR) B.parapertussis DNA PCR C. pneumoniae DNA (PCR) Coronavirus OC43 (PCR) Coronavirus HKU1 (PCR) Coronavirus 229E (PCR) SARS-CoV-2 (PCR) Coronavirus NL63 (PCR) Human Metapneumovir PCR Influenza Type A (PCR) Influenza Type B (PCR) M. pneumoniae (PCR) Parainfluenza 1 (PCR) Parainfluenza 2 (PCR) Parainfluenza 3 (PCR) Parainfluenza 4 (PCR) RSV (PCR) Entero/Rhino (PCR) Staphylococcus sp PCR mecA/C-Methicil Resis Gene Staph epidermidis (PCR) Bld Cult ID Panel PCR Chest X-Ray 10/05/23 21:05 XR chest 1V not portable CLINICAL HISTORY: Sepsis TECHNIQUE: Single frontal radiograph of the chest was obtained. Comparison: Comparison is made to chest radiograph 04/12/2023 FINDINGS: No lines and tubes are seen. The cardiomediastinal silhouette is normal. Lungs are underinflated but clear. No evidence of pleural effusion or pneumothorax. IMPRESSION: No acute chest disease. ACT 112: Negative or not required by law. Electronically signed by: Nura Bergman M.D. 10/06/2023 7:41 AM Hospital Course (1) COPD with acute exacerbation: (2) COPD, moderate: (3) Acute kidney injury superimposed on CKD: (4) Afib: (5) Diabetes mellitus with diabetic neuropathy: (6) HTN (hypertension): (7) Hyperlipidemia: (8) Memory impairment: (9) Chronic kidney disease, stage 3a: (10) Hypothyroidism: (11) Coronary artery disease: (12) Chronic congestive heart failure: (13) GERD without esophagitis: Plan 73 M with PMH previously well-controlled COPD, atrial fibrillation on Eliquis + Plavix, T2DM, HTN, HLD, hypothyroidism, memory deficits, depression and chronic back pain s/p spinal cord stimulator who presented to the ED with confusion, cough, lethargy, and SOB x2 to 4 days. Admitted to the hospital due to hypercarbic respiratory failure, presumed secondary to an acute COPD exacerbation and CHINO presumed secondary to dehydration. Patient needed BiPap on admission, no leukocytosis and hypercapnic. Exacerbation seem to be due to chronic smoking, no presumed infectious illness Patient was treated with prednisone, IV antibiotics, DuoNeb, and oxygen Additionally, patient seem to have an CHINO on his CKDa, seem to be due to dehydration, resolved after IV fluids. Hyperkalemia improved with sodium bicarbonate. Patient discharge with Cr back on his baseline Cr 1.68 Patient was discharge home with the following: - Azithromycin 250 mg, take 1 tab daily for the next 3 days, (for a total of 5 days) - Prednisone 20 mg, take 2 tab for the next 3 days (for a total of 5 days) -Spiriva Respimat an inhalation spray, do 1 puff daily -Albuterol inhalation, this one is as needed for cough or wheezing every 6 hours Patient was encourage to follow up with PCP within a week and established care with a Parcel Post Order Clerk outpatient. Total Time Total Time Spent Total Time Spent (In Minutes): see attending attestation Discharge Plan Discharge Items Patient Disposition: Home - Self-Care Reason For Visit: SHORTNESS OF BREATH Discharge Diagnosis: COPD excarcerbation Condition on Discharge: Fair Activity: Per Instructions section Non-emergency contact: Primary Care Provider and Parcel Post Order Clerk Call non-emergency contact if: you have any medication questions, your symptoms worsen and your temperature is above 101 Follow-up/Referrals: Sandra Davis DO [Primary Care Provider] - 10/18/23 10:20 am Diet: Carb Consistent or DM2 Addtl Attending Provider Instructions: You were admitted to the hospital due to COPD exacerbation this is a flare up of your chronic respiratory symptoms. Additionally you were found with an insult in your chronic kidney disease that seem to be due to dehydration You will be discharge home with the following: - Azithromycin 250 mg, take 1 tab daily for the next 3 days - Prednisone 20 mg, take 2 tab for the next 3 days -Spiriva Respimat an inhalation spray, do 1 puff daily -Albuterol inhalation, this one is as needed for cough or wheezing every 6 hours Additionally, we did a test during your admission to see if you require oxygen supplementation at home. You will also be discharge with oxygen tank and a script for .oxygen A discharge summary will be sent to your primary care physician to ensure continuity of care. Please bring this discharge summary with you to your next office appointment so that your provider can review it at that time. Follow-up appointments: Make a follow-up appointment with your PCP within the next week. It is very important that you follow up with them shortly after discharge from the hospital. It's important to establish care with a reinstatement clerk outpatient for continue care of the COPD Medications: Your medication list has been reviewed and reconciled upon discharge to ensure accuracy and continuity of care. An updated list of all your medications is included with your hospital discharge paperwork. Please review this list closely, and make note of any changes. Take your medications as instructed; do not skip a dose of your medicines. Make sure all of your doctors know every medicine you are taking (including cuuf-wun-lnxvree medicines, vitamins, and supplements). Call your primary care provider before taking any new medicines (including over- the- counter medicines, vitamins, and supplements), because some of these may interact with your current medications, or may make your symptoms worse. Tell your primary care provider if you cannot afford your medications. CALL 911 OR GO TO THE EMERGENCY DEPARTMENT if you experience any of the following: Sudden, severe abdominal pain or nausea/vomiting Severe chest pain, or chest pain that radiates (moves) to your jaw or arm Sudden, severe shortness of breath or difficulty breathing Thank you for allowing us to participate in your care. Pending Studies at Discharge: No Stand-Alone Forms: My [facility], Smoking Cessation Medications and DC Order Prescriptions: New Spiriva Respimat 2.5 mcg/actuation mist 2 inh inhalation DAILY Qty: 4 0RF azithromycin 250 mg tablet 250 mg PO DAILY 3 Days Qty: 3 0RF Rx Instructions: start on day 2 of therapy prednisone 20 mg tablet 40 mg PO DAILY 3 Days Qty: 6 0RF albuterol sulfate [Proventil HFA] 90 mcg/actuation HFA aerosol inhaler 1 inh inhalation Q6H PRN (Reason: shortness of breath or wheezing) Qty: 6.7 0RF Continued rosuvastatin [Crestor] 20 mg tablet 20 mg PO QAM Qty: 90 3RF Combivent Respimat 20-100 mcg/actuation mist 1 puff inhalation Q6H PRN (Reason: sob) Qty: 4 5RF Patient Comments: has not used in awhile hydrocortisone 2.5 % ointment 1 applic topical DAILY PRN (Reason: skin irritation) Qty: 28.35 2RF Rx Instructions: Apply BID for 1 week, then daily as needed to the scrotum for itching. cyanocobalamin (vitamin B-12) [Vitamin B-12] 500 mcg tablet 1,000 mcg PO QAM imipramine pamoate 100 mg capsule 100 mg PO HS Qty: 90 1RF (DME) blood-glucose meter [[email or web address] Verio Reflect Start] Kit See Rx Instructions .Route Qty: 1 0RF Rx Instructions: use to test blood sugar QD carbidopa-levodopa 25-100 mg tablet 2 tab PO TID 90 Days Qty: 540 1RF Rx Instructions: Take 2 tabs in the morning, 2 tabs at noon, and 2 tabs in the evening. finasteride 5 mg tablet 5 mg PO QAM Qty: 90 3RF (DME) blood-glucose meter [Contour Next One Meter] Misc See Rx Instructions .Route Qty: 1 0RF Rx Instructions: Test blood sugars twice a day (DME) Contour Next Test Strips Strip See Rx Instructions .Route Qty: 200 3RF Rx Instructions: Test blood sugars twice a day (DME) lancets [Microlet Lancet] Misc See Rx Instructions .Route Qty: 200 3RF Rx Instructions: Test blood sugars twice a day buspirone 5 mg tablet 5 mg PO BID Qty: 180 5RF Eliquis 5 mg tablet 5 mg PO BID Qty: 180 1RF famotidine 20 mg tablet 20 mg PO HS Qty: 90 0RF venlafaxine 75 mg capsule,extended release 24hr 75 mg PO HS Qty: 90 1RF pramipexole 0.5 mg tablet 0.5 mg PO HS 90 Days Qty: 90 1RF Rx Instructions: Take 0.5 mg (1 tab) three hours before bedtime testosterone 20.25 mg/1.25 gram (1.62 %) gel in metered-dose pump 2 pump topical DAILY Qty: 75 2RF Rx Instructions: apply 1 pump amount over max area of EACH upper arm and shoulder amlodipine 5 mg tablet 10 mg PO QAM Qty: 180 3RF metformin 500 mg tablet 500 mg PO BID tamsulosin [Flomax] 0.4 mg capsule 0.4 mg PO BID Qty: 180 3RF fenofibrate nanocrystallized 145 mg tablet 145 mg PO QAM Qty: 90 0RF cholecalciferol (vitamin D3) 25 mcg (1,000 unit) capsule 1,000 unit PO QAM ezetimibe 10 mg tablet 10 mg PO QAM diclofenac sodium [Voltaren Arthritis Pain] 1 % Gel 2 g EXT QID PRN (Reason: left thumb pain) Qty: 1 0RF Rx Instructions: purchase [id number] insulin glargine [Lantus Solostar U-100 Insulin] 100 unit/mL (3 mL) insulin pen 30 unit subcut QAM Qty: 15 2RF (DME) pen needle, diabetic [Easy Comfort Pen [place]] 33 gauge x 5/32" needle See Rx Instructions .Route Qty: 100 2RF Rx Instructions: As directed with lantus pens. (DME) OneTouch Verio test strips Strip See Rx Instructions .Route Qty: 100 3RF Rx Instructions: check blood sugars each AM and AT LEAST 1 other time later in the day. morphine 15 mg tablet 15 mg PO Q6H PRN (Reason: Pain) Qty: 28 0RF Patient Comments: takes TID (DME) lancets [Onetouch Delica Safety Lancet] 30 gauge misc See Rx Instructions .Route Qty: 100 3RF Rx Instructions: test blood sugar twice daily magnesium oxide [MagOx] 400 mg (241.3 mg magnesium) tablet 400 mg PO HS clopidogrel 75 mg tablet 75 mg PO QAM levothyroxine 75 mcg tablet 75 mcg PO QAM lisinopril 10 mg tablet 10 mg PO QAM Rx Instructions: Take 1 tablet by mouth once daily. lamotrigine 100 mg tablet See Rx Instructions .ROUTE .COMPLEX Rx Instructions: TAKES 50 MG QAM, THEN 100 MG QPM. Discharge Orders: Discharge Order (Routine); Ordered 10/07/23 Ordered By: Candida Parada/Other Patient Handouts: Managing Type 2 Diabetes, Special Foot Care for Diabetes Admission Data Admit Date/Time: 10/05/23 23:54 Attending Provider: Mira Danielson Admit Provider: Tiffanie Morgan Primary Care Provider: Sandra Davis Other Providers: Abel Galdamez Other Interventions: Discharge Summary Assessment (RN) Last Done: 10/07/23 16:02 Supervising Physician Co-Signing Physician Notes Resident Physician Supervision Note: I independently interviewed and examined the patient and verified the ramsey history and physical, reviewed labs and image studies and agree with resident findings and care plan. Resident Activity Tracking Resident Involvement: Resident Care Provided Care Provided: Adult Hospital Medicine
--- NOTE | 2023-10-10 11:13 | Coding Query ---
CONGESTIVE HEART FAILURE To Promote full compliance with coding requirements relating to patient care, physician participation is requested in all cases of remote inpatient coder uncertainty. Please assist us with the following questions. A diagnosis of Congestive Heart Failure is documented in the patient's medical record. To accurately code this diagnosis and to compare patient severity, we ask that you specify the type of heart failure by placing an X within the parenthesis (x). SYSTOLIC HEART FAILURE ( ) Acute ( ) Chronic ( ) Acute on Chronic ( ) Rheumatic ( ) Unknown DIASTOLIC HEART FAILURE ( ) Acute ( ) Chronic ( ) Acute on Chronic ( ) Rheumatic ( ) Unknown COMBINED SYSTOLIC AND DIASTOLIC HEART FAILURE ( ) Acute ( ) Chronic ( ) Acute on Chronic ( ) Rheumatic ( ) Unknown Was the CHF Present On Admission? Please check the appropriate box: ( ) Present on Admission ( x ) Not Present On Admission ( ) Clinically undetermined Thank you Lorena PAYNE
--- NOTE | 2023-10-10 21:31 | Billing Data ---
Date of Service October 10, 2023 Coding Level of Care Code 24874 INT INP/OBS CARE
== END 2023-10-07 17:02 | disposition home or self-care (01) ==
LOC: ED 20:49 → SUATTDRO 23:54 → EDINP 23:54 → INTOOBSV 23:54 → 2W 10-06 01:56

== ENCOUNTER 2025-02-01 17:58 | Inpatient (IN) ==
[2025-02-01] MEDS: KETOROLAC TROMETHAMINE 15 MG/ML VIAL IV ONE (19:15)
[2025-02-01] MEDS: predniSONE 50 MG TAB PO STA (19:24)
[2025-02-01 19:49] LABS: Anion Gap 5 (3-11); Blood Urea Nitrogen 22 mg/dl (6-23); Calcium 9.5 mg/dl (8.6-10.3); Carbon Dioxide 33 mmol/L (21-32); Chloride 98 mmol/L (98-107); Creatinine Clr Calc Pharmacy 78.1 ml/min; Glucose 147 mg/dl (70-99(Fasting)); Potassium 4.5 mmol/L (3.5-5.1); Sodium 136 mmol/L (136-145)
[2025-02-01 19:50] LABS: Alanine Aminotransferase < 3 U/L (7-52); Albumin Globulin Ratio 1.1 (0.9-2); Alkaline Phosphatase 80 U/L (34-104); Aspartate Aminotransferase 10 U/L (13-39); Bilirubin,Total 0.4 mg/dl (0.2-1.0); Globulin 3.5 gm/dl (2.5-4.0); Total Protein 7.5 gm/dl (6.0-8.3)
[2025-02-01 19:56] LABS: Troponin I High Sensitivity 6.1 pg/ml (0-20)
--- NOTE | 2025-02-01 20:11 | CT Scan Report ---
EXAM: CT Thoracic and Lumbar Spine Without Intravenous Contrast INDICATION: Lower back pain. Leg numbness. TECHNIQUE: Axial computed tomography images of the thoracic and lumbar spine without intravenous contrast. Sagittal and coronal reformatted images were created and reviewed. This CT exam was performed using one or more of the following dose reduction techniques: automated exposure control, adjustment of the mA and/or kV according to patient size, and/or use of iterative reconstruction technique. COMPARISON: CT lumbar spine 09/26/2021 FINDINGS: Vertebrae: The bones are diffusely demineralized. There is moderate diffuse spondylosis. Intact posterior T9-L1 fusion. Separate fusion willem and pedicle screws noted L2-S1. Hardware well-seated and intact. No fracture noted. There is grade 1 retrolisthesis and large uncal spurs at L5-S1. Discs/spinal canal/neural foramina: There is diffuse mild to moderate disc space narrowing. There is most significant narrowing in the lumbar spine most notable at L5-S1. Limited assessment of the canal due to extensive metallic streak artifact. Canal patent. Significant canal abnormalities at the lower thoracic and entire lumbar level the right would be obscured by artifact. Soft tissues: No significant abnormality noted. Vasculature: Atherosclerotic calcification of the aorta and branches. No aneurysm. Lymph nodes: Prominent numbers in size of multiple precarinal nodes measuring up to 9 mm. Lungs and pleural spaces: Centrilobular emphysema noted. There are 3 noncalcified right lower lobe pulmonary nodules the largest measuring 1.1 x 0.6 cm. There is a 0.7 x 0.4 cm noncalcified nodule in the right upper lobe. Patchy airspace consolidation noted in the dependent posterior left costophrenic sulcus. Mediastinum: There is diffuse circumferential thickening of the esophagus without evident mass. There are few scattered small calcified granulomata. Tubes, lines and devices: Spinal stimulator terminates at T8. IMPRESSION: 1. Limited study due to extensive metallic artifact in the lower thoracic and entire lumbar spine. 2. No acute spinal abnormality identified. 3. Patchy airspace disease in the left posterior costophrenic sulcus could reflect pneumonia. 4. Diffuse esophageal thickening. Correlate clinically for esophagitis. 5. Noncalcified right lower and upper lobe pulmonary nodules. If there is no prior study to compare, CT chest needed to further guide follow-up. ACT 112: Positive. There are findings on this exam that require communication between the performing entity and the patient following Patient Test Result Information Act ([place] ACT 112) guidelines. Electronically signed by Leena Yost 02-01-2025 8:10 PM
[2025-02-01 20:28] LABS: Basophils # (auto) 0.04 K/uL (0.00-0.20); Basophils % (auto) 0.5 %; Eosinophils % (auto) 2.6 %; Hematocrit (blood only) 50.2 % (42.0-52.0); Immature Granulocytes # (auto) 0.02 K/uL (0.01-0.20); Immature Granulocytes % (auto) 0.3 %; Lymphocytes # (auto) 1.46 K/uL (1.20-3.40); Lymphocytes % (auto) 18.8 %; Mean Corpuscular Hemoglobin 30.9 pg (25.0-34.0); Mean Corpuscular Hgb Conc 33.9 g/dL (32.0-36.0); Mean Corpuscular Volume 91.3 fL (80.0-100.0); Mean Platelet Volume 9.5 fL (9.4-12.4); Monocytes # (auto) 0.49 K/uL (0.11-0.59); Monocytes % (auto) 6.3 %; Neutrophils # (auto) 5.55 K/uL (1.40-6.50); Neutrophils % (auto) 71.5 %; Platelet Count 202 K/uL (130-400); RDW Coefficient of Variation 13.4 % (11.5-14.5); RDW Standard Deviation 44.3 fL (36.4-46.3); White Blood Count 7.76 K/ul (4.8-10.8)
[2025-02-01] MEDS: HYDROmorphone INJ 0.5 MG/0.5 ML SYR IV STA (20:38)
[2025-02-01] MEDS: diphenhydrAMINE 50 MG/ML VIAL IV ONE (20:54)
[2025-02-01] MEDS: OPTIRAY 320 100ml IV ONE (21:02)
--- NOTE | 2025-02-01 21:12 | Emergency Department Note ---
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 is grade 1 retrolisthesis and large uncal spurs at L5-S1. Discs/spinal canal/neural foramina: There is diffuse mild to moderate disc space narrowing. There is most significant narrowing in the lumbar spine most notable at L5-S1. Limited assessment of the canal due to extensive metallic streak artifact. Canal patent. Significant canal abnormalities at the lower thoracic and entire lumbar level the right would be obscured by artifact. Soft tissues: No significant abnormality noted. Vasculature: Atherosclerotic calcification of the aorta and branches. No aneurysm. Lymph nodes: Prominent numbers in size of multiple precarinal nodes measuring up to 9 mm. Lungs and pleural spaces: Centrilobular emphysema noted. There are 3 noncalcified right lower lobe pulmonary nodules the largest measuring 1.1 x 0.6 cm. There is a 0.7 x 0.4 cm noncalcified nodule in the right upper lobe. Patchy airspace consolidation noted in the dependent posterior left costophrenic sulcus. Mediastinum: There is diffuse circumferential thickening of the esophagus without evident mass. There are few scattered small calcified granulomata. Tubes, lines and devices: Spinal stimulator terminates at T8. IMPRESSION: 1. Limited study due to extensive metallic artifact in the lower thoracic and entire lumbar spine. 2. No acute spinal abnormality identified. 3. Patchy airspace disease in the left posterior costophrenic sulcus could reflect pneumonia. 4. Diffuse esophageal thickening. Correlate clinically for esophagitis. 5. Noncalcified right lower and upper lobe pulmonary nodules. If there is no prior study to compare, CT chest needed to further guide follow-up. ACT 112: Positive. There are findings on this exam that require communication between the performing entity and the patient following Patient Test Result Information Act ([place] ACT 112) guidelines. Electronically signed by Leena Yost 02-01-2025 8:10 PM Discharge Plan Visit Data Chief Complaint: Shoulder Pain Stated Complaint: NUMB FEET, STIFF NECK, SHOULDERS HIP AND KNEE PAIN ED Provider: Hussein Albert Discharge Problem: Back pain, Polymyalgia rheumatica, Ambulatory dysfunction Patient Disposition: Admitted As Inpatient Discharge Instructions Interventions: ED Discharge Assessment Last Done: 02/02/25 02:45
--- NOTE | 2025-02-01 23:34 | CT Scan Report ---
Exam(s): CT CHEST With Contrast IV Amt: OPTIRAY 320 94ML EXAM: CT Chest With Intravenous Contrast CLINICAL HISTORY: Reason for exam: Pneumonia, lung nodules. TECHNIQUE: Axial computed tomography images of the chest with intravenous contrast. CTDI is 26.94 mGy and DLP is 928.64 mGy-cm. Automated exposure control was utilized for the study. A dose lowering technique was utilized adhering to the principles of ALARA. CONTRAST: Patient received OPTIRAY 320 94ML of IV contrast COMPARISON: September 29, 2020 FINDINGS: Lungs: Bronchial wall thickening in both lung centrally consistent with bronchitis and no emphysema, increased compared to previous. There is a small amount of atelectasis, less likely infiltrate in the left costophrenic angle. There are 2 oval pulmonary nodules in the right lower lobe measuring up to 9 mm long axis, unchanged. No further follow- up is required for there is nodules. Pleural space: Unremarkable. No pneumothorax. No significant effusion. Heart: The heart is not enlarged. There is moderate to severe coronary calcification involving all coronary vessels. No pericardial effusion. Bones/joints: Metallic artifact from multilevel instrumentation, fusion, and laminectomy involving the lower thoracic and upper lumbar spine. There is a spinal stimulator in place, unchanged. No acute fracture. No dislocation. Soft tissues: Unremarkable. Vasculature: The thoracic aorta is mildly calcified but nondilated. There is no aneurysm or dissection. No evidence of pulmonary embolism. Lymph nodes: Unremarkable. No enlarged lymph nodes. Gallbladder and bile ducts: Previous cholecystectomy. IMPRESSION: 1. Bronchial wall thickening in both lung centrally consistent with bronchitis and no emphysema, increased compared to previous. There is a small amount of atelectasis, less likely infiltrate in the left costophrenic angle. 2. The heart is not enlarged. There is moderate to severe coronary calcification involving all coronary vessels. No pericardial effusion. 3. There are 2 oval pulmonary nodules in the right lower lobe measuring up to 9 mm long axis, unchanged. No further follow-up is required for there is nodules. Electronically signed by: Ezra Deleon MD 02/01/25 23:34 PM
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
[2025-02-02] MEDS: DEXAMETHASONE SOD INJ 4 MG/ML VIAL IV STA (01:44)
[2025-02-02 01:46] LABS: Thyroid Stimulating Hormone 2.608 uIu/ml (0.300-4.500)
[2025-02-02] MEDS ORDERED: ONDANSETRON INJ 2 MG/ML 2 ML VIAL IV PRN (03:14)
[2025-02-02] MEDS ORDERED: DEXTROSE 50% 50 ML SYRINGE IV PRN (03:14)
[2025-02-02] MEDS ORDERED: CARBOHYDRATES FOR HYPOGLYCEMIA PO PRN (03:14)
[2025-02-02] MEDS ORDERED: IPRATROPIUM BROMIDE/ALBUTEROL respimat INH INH PRN (03:14)
[2025-02-02] MEDS ORDERED: BENZONATATE 100 MG CAPSULE PO PRN (03:14)
[2025-02-02] MEDS ORDERED: GLUCOSE 10 TAB/TUBE PO PRN (03:14)
[2025-02-02] MEDS ORDERED: GLUCOSE 40% GEL 15 GM TUBE PO PRN (03:14)
[2025-02-02] MEDS ORDERED: PHARMACY GLYCEMIC MGMT CONSULT PRN (03:14)
[2025-02-02] MEDS ORDERED: GLUCAGON FOR INJ 1 MG VIAL SQ PRN (03:14)
[2025-02-02] MEDS ORDERED: NALOXONE HCL 0.4 MG/1 ML VIAL/CARP IV PRN (03:23)
[2025-02-02] MEDS: APIXABAN 5 MG TABLET PO SCH (04:16)
[2025-02-02] MEDS: MELATONIN 3 MG TAB PO PRN (04:16)
[2025-02-02] MEDS: busPIRone 5 MG TAB PO SCH (04:16)
[2025-02-02] MEDS: CARBIDOPA/LEVODOPA 25/100MG TAB PO SCH (04:16)
[2025-02-02] MEDS: HYDROmorphone INJ 1 MG/ML SYRINGE IV PRN (04:16)
[2025-02-02] MEDS: FAMOTIDINE 20 MG TAB PO SCH (04:16)
[2025-02-02] MEDS ORDERED: IPRATROPIUM BROMIDE HFA INHALER INH PRN (04:58)
[2025-02-02] MEDS: LEVOTHYROXINE SODIUM 75 MCG TABLET PO SCH (05:53)
[2025-02-02 07:15] LABS: Magnesium 1.9 mg/dl (1.7-2.4)
[2025-02-02 07:57] LABS: Estimated Average Glucose 220 mg/dl; Hemoglobin A1C 9.3 % (4.5-5.6)
--- NOTE | 2025-02-02 07:58 | Hospitalist Progress Note ---
Date of Service February 02, 2025 Assessment & Plan (1) Paresthesia of bilateral legs: Plan: Neurology consulted. Appreciate Dr. Hargrove's input Continue to treat for restless leg syndrome Mirapex and carbidopa levodopa Continue venlafaxine and imipramine No indication for lumbar puncture Consider discontinuing dexamethasone if pain is better controlled Patient with spinal cord stimulator for peripheral leg pain. MRI is ordered and pending to check for lead placement (2) S/P laminectomy with spinal fusion: Plan: Patient with ongoing low back pain with no radiculitis Peripheral neuropathy below the knees as listed above with stocking-like feeling Patient has spinal cord stimulator. MRI pending to evaluate leads for spinal cord stimulator. We will look for any new findings that could be contributing to his pain. Continue outpatient pain management regimen (3) Acute respiratory failure: Plan: Resolved. SpO2 93% on room air. Patient denies any shortness of breath. (4) Diabetes mellitus, type 2: Plan: Poorly controlled. Hemoglobin A1c 9.3% Random glucose 147 Appreciate glycemic consult (5) Chronic narcotic dependence: Plan: Continue spinal cord stimulator Patient currently getting morphine sulfate as an outpatient with current MME per day at 62 and managed by primary care provider Requiring hydromorphone while inpatient -attempt to wean back to home dose as possible Plan VTE ppx: continue Eliquis Diet: t2dm Dispo: med/tele with hypoxia Admission and Anticipated Discharge Date Admission Date: February 02, 2025 Supervising Physician Co-Signing Physician Notes Attending Attestation - Chart reviewed, care plan d/w GILMER Haynes. I agree w/ the ramsey components of his documentation. Jesus Bernal MD Subjective Attending: Dr. Bernal Patient is a 74 y/o male with a PMHx of Neuropathy s/p spinal stimulator 1996, stage III CKD, type II DM on insulin, hypothyroidism, YVETTE on CPAP, history of PMR, A-fib on Eliquis. He presented to the ED due to 1 week of progressive body weakness, hip shoulder and neck pain, and bilateral lower extremity numbness. In the ED CT of lumbar and thoracic spine revealed no significant acute abnormalities. He became hypoxic at 88% on room air and was started on 2L NC in the ED. He is being admitted to titrate oxygen, possibly receive an MRI, have IV steroids and IV pain medication. Neurology consult placed for eval regarding bilateral lower extremity paresthesia. Patient continues with generalized musculoskeletal pain. He is scheduled for MRI of the back today. Currently, he states his pain is generally controlled with current regimen. He has no acute complaints. Review of Systems 2 Review of Systems: A total of 10 systems was reviewed and is negative other than as listed in the HPI Physical Exam 2 Physical Exam: GENERAL : No acute distress EYES: No icterus, gaze conjugate NOSE: No evidence of epistaxis MOUTH: No lesions or candidiasis NECK: Supple LUNGS: CTA B/L, no wheezes, rales or rhonchi HEART: Regular, rate controlled ABDOMEN: Soft, NT, ND, BS Present EXTREMITIES: No LE edema, pedal pulses intact NEURO: A&OX3 Results & Data Results & Data Vital Signs (Past 12 Hours) Vital Signs Temp Pulse Pulse Resp BP BP Pulse Ox 02/02/25 07:00 64 02/02/25 03:52 02/02/25 03:52 36.3 C L 72 18 155/75 H 93 02/02/25 03:14 36.3 C L 72 18 155/75 H 93 02/02/25 03:06 71 02/02/25 02:45 36.2 C L 66 18 152/72 H 92 02/01/25 23:02 61 02/01/25 22:49 66 18 161/84 H 92 02/01/25 21:00 63 18 124/76 90 02/01/25 19:59 93 02/01/25 19:59 88 L O2 Del Method O2 Flow Rate 02/02/25 07:00 02/02/25 03:52 Nasal Cannula 2 02/02/25 03:52 Nasal Cannula 2 02/02/25 03:14 Nasal Cannula 2 02/02/25 03:06 02/02/25 02:45 Room Air 02/01/25 23:02 02/01/25 22:49 Nasal Cannula 2 02/01/25 21:00 Nasal Cannula 2 02/01/25 19:59 Nasal Cannula 2 02/01/25 19:59 Room Air Laboratory Results 02/01/25 19:17 02/01/25 19:17 Diagnostic Findings Lumbar Spine CT 02/01/25 19:03 EXAM: CT Thoracic and Lumbar Spine Without Intravenous Contrast INDICATION: Lower back pain. Leg numbness. TECHNIQUE: Axial computed tomography images of the thoracic and lumbar spine without intravenous contrast. Sagittal and coronal reformatted images were created and reviewed. This CT exam was performed using one or more of the following dose reduction techniques: automated exposure control, adjustment of the mA and/or kV according to patient size, and/or use of iterative reconstruction technique. COMPARISON: CT lumbar spine 09/26/2021 FINDINGS: Vertebrae: The bones are diffusely demineralized. There is moderate diffuse spondylosis. Intact posterior T9-L1 fusion. Separate fusion willem and pedicle screws noted L2-S1. Hardware well-seated and intact. No fracture noted. There is grade 1 retrolisthesis and large uncal spurs at L5-S1. Discs/spinal canal/neural foramina: There is diffuse mild to moderate disc space narrowing. There is most significant narrowing in the lumbar spine most notable at L5-S1. Limited assessment of the canal due to extensive metallic streak artifact. Canal patent. Significant canal abnormalities at the lower thoracic and entire lumbar level the right would be obscured by artifact. Soft tissues: No significant abnormality noted. Vasculature: Atherosclerotic calcification of the aorta and branches. No aneurysm. Lymph nodes: Prominent numbers in size of multiple precarinal nodes measuring up to 9 mm. Lungs and pleural spaces: Centrilobular emphysema noted. There are 3 noncalcified right lower lobe pulmonary nodules the largest measuring 1.1 x 0.6 cm. There is a 0.7 x 0.4 cm noncalcified nodule in the right upper lobe. Patchy airspace consolidation noted in the dependent posterior left costophrenic sulcus. Mediastinum: There is diffuse circumferential thickening of the esophagus without evident mass. There are few scattered small calcified granulomata. Tubes, lines and devices: Spinal stimulator terminates at T8. IMPRESSION: 1. Limited study due to extensive metallic artifact in the lower thoracic and entire lumbar spine. 2. No acute spinal abnormality identified. 3. Patchy airspace disease in the left posterior costophrenic sulcus could reflect pneumonia. 4. Diffuse esophageal thickening. Correlate clinically for esophagitis. 5. Noncalcified right lower and upper lobe pulmonary nodules. If there is no prior study to compare, CT chest needed to further guide follow-up. ACT 112: Positive. There are findings on this exam that require communication between the performing entity and the patient following Patient Test Result Information Act ([place] ACT 112) guidelines. Electronically signed by Leena Yost 02-01-2025 8:[address] 02/01/25 19:24 EXAM: CT Thoracic and Lumbar Spine Without Intravenous Contrast INDICATION: Lower back pain. Leg numbness. TECHNIQUE: Axial computed tomography images of the thoracic and lumbar spine without intravenous contrast. Sagittal and coronal reformatted images were created and reviewed. This CT exam was performed using one or more of the following dose reduction techniques: automated exposure control, adjustment of the mA and/or kV according to patient size, and/or use of iterative reconstruction technique. COMPARISON: CT lumbar spine 09/26/2021 FINDINGS: Vertebrae: The bones are diffusely demineralized. There is moderate diffuse spondylosis. Intact posterior T9-L1 fusion. Separate fusion willem and pedicle screws noted L2-S1. Hardware well-seated and intact. No fracture noted. There is grade 1 retrolisthesis and large uncal spurs at L5-S1. Discs/spinal canal/neural foramina: There is diffuse mild to moderate disc space narrowing. There is most significant narrowing in the lumbar spine most notable at L5-S1. Limited assessment of the canal due to extensive metallic streak artifact. Canal patent. Significant canal abnormalities at the lower thoracic and entire lumbar level the right would be obscured by artifact. Soft tissues: No significant abnormality noted. Vasculature: Atherosclerotic calcification of the aorta and branches. No aneurysm. Lymph nodes: Prominent numbers in size of multiple precarinal nodes measuring up to 9 mm. Lungs and pleural spaces: Centrilobular emphysema noted. There are 3 noncalcified right lower lobe pulmonary nodules the largest measuring 1.1 x 0.6 cm. There is a 0.7 x 0.4 cm noncalcified nodule in the right upper lobe. Patchy airspace consolidation noted in the dependent posterior left costophrenic sulcus. Mediastinum: There is diffuse circumferential thickening of the esophagus without evident mass. There are few scattered small calcified granulomata. Tubes, lines and devices: Spinal stimulator terminates at T8. IMPRESSION: 1. Limited study due to extensive metallic artifact in the lower thoracic and entire lumbar spine. 2. No acute spinal abnormality identified. 3. Patchy airspace disease in the left posterior costophrenic sulcus could reflect pneumonia. 4. Diffuse esophageal thickening. Correlate clinically for esophagitis. 5. Noncalcified right lower and upper lobe pulmonary nodules. If there is no prior study to compare, CT chest needed to further guide follow-up. ACT 112: Positive. There are findings on this exam that require communication between the performing entity and the patient following Patient Test Result Information Act ([place] ACT 112) guidelines. Electronically signed by Leena Yost 02-01-2025 8:[address] 02/01/25 20:37 Exam(s): CT CHEST With Contrast IV Amt: OPTIRAY 320 94ML EXAM: CT Chest With Intravenous Contrast CLINICAL HISTORY: Reason for exam: Pneumonia, lung nodules. TECHNIQUE: Axial computed tomography images of the chest with intravenous contrast. CTDI is 26.94 mGy and DLP is 928.64 mGy-cm. Automated exposure control was utilized for the study. A dose lowering technique was utilized adhering to the principles of ALARA. CONTRAST: Patient received OPTIRAY 320 94ML of IV contrast COMPARISON: September 29, 2020 FINDINGS: Lungs: Bronchial wall thickening in both lung centrally consistent with bronchitis and no emphysema, increased compared to previous. There is a small amount of atelectasis, less likely infiltrate in the left costophrenic angle. There are 2 oval pulmonary nodules in the right lower lobe measuring up to 9 mm long axis, unchanged. No further follow- up is required for there is nodules. Pleural space: Unremarkable. No pneumothorax. No significant effusion. Heart: The heart is not enlarged. There is moderate to severe coronary calcification involving all coronary vessels. No pericardial effusion. Bones/joints: Metallic artifact from multilevel instrumentation, fusion, and laminectomy involving the lower thoracic and upper lumbar spine. There is a spinal stimulator in place, unchanged. No acute fracture. No dislocation. Soft tissues: Unremarkable. Vasculature: The thoracic aorta is mildly calcified but nondilated. There is no aneurysm or dissection. No evidence of pulmonary embolism. Lymph nodes: Unremarkable. No enlarged lymph nodes. Gallbladder and bile ducts: Previous cholecystectomy. IMPRESSION: 1. Bronchial wall thickening in both lung centrally consistent with bronchitis and no emphysema, increased compared to previous. There is a small amount of atelectasis, less likely infiltrate in the left costophrenic angle. 2. The heart is not enlarged. There is moderate to severe coronary calcification involving all coronary vessels. No pericardial effusion. 3. There are 2 oval pulmonary nodules in the right lower lobe measuring up to 9 mm long axis, unchanged. No further follow-up is required for there is nodules. Electronically signed by: Ezra Deleon MD 02/01/25 23:34 PM PG Care Time/CCT Total # of Minutes Spent Total Time Spent with Patient: Total time spent is greater than 50% in coordination of care (as documented) at patient's floor/unit and/or counseling patient: 25 minutes Coding Level of Care Code 76724 SUB INP/OBS CARE 1/25MIN Diagnoses Paresthesia of bilateral legs R20.2 S/P laminectomy with spinal fusion Z98.1 Acute respiratory failure J96.00 Type 2 diabetes mellitus with microalbuminuria, with long-term current use of insulin E11.29; R80.9; Z79.4 Diabetes mellitus complication detail: with microalbuminuria Diabetes mellitus complication status: with kidney complications Diabetes mellitus lobsterman insulin use: with detention use Chronic narcotic dependence F11.20 Time Spent (min) 25 (4) Diabetes mellitus, type 2 Diabetes mellitus complication detail: with microalbuminuria Diabetes mellitus complication status: with kidney complications Diabetes mellitus lobsterman insulin use: with detention use Qualified Code(s): E11.29 - Type 2 diabetes mellitus with other diabetic kidney complication; R80.9 - Proteinuria, unspecified; Z79.4 - FDC (current) use of insulin
--- NOTE | 2025-02-02 08:27 | Neurology Consultation ---
Date of Consultation February 02, 2025 Assessment & Plan (1) Diabetic peripheral neuropathy: (2) Restless legs syndrome: (3) S/P insertion of spinal cord stimulator: (4) S/P laminectomy with spinal fusion: (5) Chronic narcotic dependence: (6) Marijuana dependence: (7) Restrictive lung disease: (8) Obstructive sleep apnea: Plan 74-year-old male, known to the neurology service, history of diabetic peripheral neuropathy, restless leg syndrome, post spinal cord stimulator placement for neuropathy pain, followed by lumbar spine surgery, failed back syndrome, opioid dependence, on morphine sulfate multiple times a day, daily marijuana use for control of chronic pain, restrictive lung disease with previous episodes of acute on chronic respiratory failure, likely multifactorial, obstructive sleep apnea, on CPAP, history of previous visits to the emergency department for exacerbation of lower extremity sensory symptoms, either neuropathy or RLS exacerbation, reported failed trials of gabapentin, pregabalin, Cymbalta, and Requip. Patient presents with persistent worsening lower extremity numbness and tingling and a feeling of weakness over the past month or so. His recent hemoglobin A1c is significantly elevated indicating poor control of his diabetes mellitus which likely contributes to his worsening lower extremity sensory symptoms. He does have a length dependent sensory loss as well as absent Achilles tendon reflexes that are consistent with his history of diabetic peripheral neuropathy. I doubt that he has Guillain-Ha syndrome. His inflammatory markers are chronically elevated to a modest degree. This finding is nonspecific in the context of his chronic medical issues. I doubt he has an acute myositis or neuromuscular disease process. He may continue with Mirapex and carbidopa levodopa 2 tablets 3 times per day as prescribed for management of his restless leg syndrome. Although carbidopa levodopa is not ideal for RLS, it seems to be effective and well-tolerated. He may continue with venlafaxine and imipramine as prescribed. These medications may provide some benefit for his diabetic peripheral neuropathy pain. I suspect the imipramine is prescribed for his encopresis. I will order a creatine kinase, aldolase, vitamin B12 level, and antibodies for myasthenia gravis. He does not require a lumbar puncture or other neuroimaging at this time. Although he has been started on corticosteroids in the context of this hospitalization, I do not see a neurological indication for this type of treatment, other than perhaps for acute control of musculoskeletal pain. I would recommend tapering off the corticosteroids unless if there is a another general medical indication for continued use. As above, he is dependent on morphine sulfate and marijuana for chronic symptom control. If the morphine sulfate needs to be restarted during this hospitalization, would use the lowest dosage possible to achieve pain control. It would not be unreasonable to try gabapentin again, would start with 100 mg 3 times per day on day 1, increase to 200 mg 3 times per day on day 2, increase to 300 mg 3 times per day on day 3 and continue with this dosage. Patient may follow-up in neurology clinic with either Dr. Holman or one of our YONI's in 2 to 3 weeks after discharge. Would consider obtaining an EMG of the lower limbs. Please call with any questions. History of Present Illness Reason for Consultation: Lower extremity paresthesias Requesting Physician: Brittnee Attending Physician: Jesus Bernal MD History of Present Illness The patient is a 74-year-old male who is known to the neurology service, he has a history of diabetic peripheral neuropathy, restless leg syndrome, post spinal cord stimulator placement for neuropathy pain, followed by lumbar spine surgery, failed back syndrome, opioid dependence, on morphine sulfate multiple times a day, daily marijuana use for control of chronic pain, restrictive lung disease, obstructive sleep apnea on CPAP, previous episodes of acute on chronic respiratory failure, likely multifactorial, history of previous visits to the emergency department for exacerbation of lower extremity sensory symptoms, either neuropathy or RLS exacerbation, reported failed trials of gabapentin, pregabalin, and Cymbalta. Patient complains of persistent worsening lower extremity numbness, tingling, feeling of weakness over the past month or so. He denies any falls, vision disturbance, slurred speech, or difficulty swallowing. He has a chronic modest elevation in inflammatory markers, ESR, CRP. He is able to ambulate with a cane. A CT of the thoracic and lumbar spine completed yesterday revealed extensive metallic artifact in the lower thoracic and entire lumbar spine, no acute abnormalities. Allergies Allergy/AdvReac Type Severity Reaction Status Date / Time shellfish derived Allergy Intermediate Hives Verified 12/14/24 10:40 Fish Containing Products Allergy Mild Rash Verified 12/14/24 10:40 Home Medications Medication Instructions Recorded Confirmed Type cholecalciferol (vitamin D3) 25 1,000 unit PO QAM 06/10/22 12/14/24 History mcg (1,000 unit) capsule ipratropium 20 mcg-albuterol 100 1 puff inhalation Q6H PRN sob #4 12/17/22 12/14/24 Rx mcg/actuation mist for inhalation grams (Combivent Respimat) cyanocobalamin (vitamin B-12) 500 1,000 mcg PO QAM 02/22/23 12/14/24 History mcg tablet (Vitamin B-12) blood-glucose meter (OneTouch #1 ea 03/18/23 12/14/24 Rx Verio Reflect Start kit) blood sugar diagnostic (OneTouch #100 ea 04/14/23 12/14/24 Rx Verio test strips) lancets 30 gauge (Onetouch Delica #100 ea 04/14/23 12/14/24 Rx Safety Lancet) pen needle, diabetic 33 gauge x #100 ea 04/14/23 12/14/24 Rx 5/32" (Easy Comfort Pen [place]) magnesium oxide 400 mg (241.3 mg 400 mg PO HS 04/23/23 12/14/24 History magnesium) tablet (MagOx) blood sugar diagnostic (Contour #200 ea 05/26/23 12/14/24 Rx Next Test Strips) blood-glucose meter (Contour Next #1 ea 05/26/23 12/14/24 Rx One Meter) lancets (Microlet Lancet) #200 ea 05/26/23 12/14/24 Rx ondansetron 4 mg disintegrating 4 mg PO Q6H PRN nausea and 12/01/23 12/14/24 Rx tablet vomiting #10 tabs morphine 15 mg immediate release 15 mg PO Q8H PRN Pain 01/24/24 12/14/24 History tablet fenofibrate nanocrystallized 145 145 mg PO QAM 02/09/24 12/14/24 History mg tablet (Tricor) sildenafil 100 mg tablet 100 mg PO DAILY PRN sexual 03/07/24 12/14/24 Rx activity #20 tabs finasteride 5 mg tablet (Proscar) 5 mg PO QAM #90 tabs 06/07/24 12/14/24 Rx Auto Titrating CPAP #1 ea 06/22/24 12/14/24 Rx hydrocortisone 2.5 % topical 1 applic topical DAILY PRN skin 06/22/24 12/14/24 Rx ointment irritation #28.35 grams rosuvastatin 20 mg tablet 20 mg PO QAM #90 tabs 08/02/24 12/14/24 Rx buspirone 5 mg tablet 5 mg PO BID #180 tabs 08/30/24 12/14/24 Rx tamsulosin 0.4 mg capsule (Flomax) 0.4 mg PO DAILY #90 caps 09/10/24 12/14/24 Rx imipramine pamoate 100 mg capsule 100 mg PO HS #90 caps 10/12/24 12/14/24 Rx levothyroxine 75 mcg tablet 75 mcg PO QAM #90 tabs 10/22/24 12/14/24 Rx imipramine HCl 50 mg tablet 100 mg (2 x 50 mg) PO DAILY #60 10/24/24 12/14/24 Rx tabs empagliflozin 25 mg tablet 25 mg PO QAM #30 tabs 10/30/24 12/14/24 Rx (Jardiance) pramipexole 1.5 mg tablet 1.5 mg PO DAILY #30 tabs 10/30/24 12/14/24 Rx famotidine 20 mg tablet 20 mg PO HS #90 tabs 11/16/24 12/14/24 Rx Basaglar KwikPen U-100 Insulin 100 30 unit (0.3 mL) subcut DAILY #15 12/31/24 Rx unit/mL (3 mL) subcutaneous mL (insulin glargine) apixaban 5 mg tablet (Eliquis) 5 mg PO BID #180 tabs 01/16/25 Rx carbidopa 25 mg-levodopa 100 mg 2 tab PO TID 90 days #540 tabs 01/16/25 Rx tablet venlafaxine 75 mg capsule,extended 75 mg PO HS #90 caps 01/16/25 Rx release 24 hr (Effexor XR) Patient History Medical History Acute exacerbation of chronic obstructive airways disease Acute respiratory failure with hypoxia and hypercarbia Low libido Hypoxia History of blood transfusion On home oxygen therapy COPD exacerbation Chronic venous stasis dermatitis of both lower extremities Atrial fibrillation Restless legs syndrome Pulmonary hypertension Congestive heart failure Vocal cord paralysis Sleep apnea Seizure-like activity Urinary urgency GERD (gastroesophageal reflux disease) Hyperlipidemia Hypothyroidism Hypertension Hx of concussion (~2018) Spinal cord neurostimulator device in situ Mouth dryness Personal history of deep vein thrombosis (2013) Personal history of pulmonary embolism (2014) CVA (cerebral vascular accident) Surgical History Hx of hand surgery (~11/2023) Hx of angiography S/P angioplasty (11/2021) History of gastric surgery History of nasal septoplasty Status post anal fissurectomy History of incision and drainage History of arthroscopy of left knee History of bronchoscopy S/P hardware removal (05/2019) S/P hemorrhoidectomy Status post surgery Status post tonsillectomy S/P cholecystectomy S/P appendectomy History of esophagogastroduodenoscopy (EGD) History of bilateral cataract extraction Hx of tooth extraction History of colonoscopy History of cardiac cath (~2017) Family History Father Cardiac disorder Diabetes Cancer Myocardial infarction Hypertension Heart disease Son Diabetes Grandmother (Paternal) Diabetes Mother Cardiac disorder Myocardial infarction Hypertension Heart disease Brother Hypertension Other No family history of adverse response to anesthesia Denies family history of Ovarian cancer Prostate cancer Breast cancer Bleeding disorder Colorectal cancer Social History Smoking Status: Current every day smoker Tobacco Type: Cigarettes Age Started Using Tobacco: 20; packs per day: 2; Cigarettes Per Day: 25; Second Hand Exposure: No; Do You Dip or Chew Tobacco: No; Hx Alcohol Use: No Hx Substance Use: Yes Prescribed Medications: Marijuana Last Used Substance: Days (ago) Last Used Substance Other:: Marijuana weekly Preferred Language: Kyrgyz Communication Ability: Effective Visual Impairment: No Limitations Hearing Ability: Normal Stave Hewer Required: No Beliefs That Will Affect Care: None marital status: Current Living Situation: Spouse 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al status: retired 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 How many Children do You have: 2 Other Information That Helps Us Care for You: No Feels Safe at Home: Yes Safety Concerns: Feels Safe At This Time Childhood Exposure to Second-Hand Smoke: No Diet: regular Diet Comment: regular caffeine: Yes (Coffee x 2 cups per day) during the past year weight has: other Dental Care, Regularly: No Physical Activity Frequency: 1-2 Times per Week Physical Activity Frequency Comment: walking Seatbelt Use: always Sunscreen Use: Yes Do you think of yourself as: straight/heterosexual Gender Identity: Male Assistive Devices: Cane, CPAP, Denture - Upper, Denture - Lower and Glasses Review of Systems Constitutional: + weakness; no fever and no chills Eyes: no blind spots and no diplopia Ear, Nose, Mouth, Throat: no hearing loss Respiratory: no cough and no dyspnea Cardiovascular: no chest pain and no palpitations Gastrointestinal: no nausea and no vomiting Genitourinary: no urinary incontinence Musculoskeletal: + back pain and + muscle weakness Integumentary: no rash and no lesions Neurologic: + gait abnormality, + unsteadiness and + paresthesia; no lack of coordination, no abnormal movements, no headache(s), no abnormal speech, no confusion and no memory loss Psychiatric: no depression and no anxiety Hematologic / Lymphatic: no easy bleeding and no easy bruising Exam (Neuro) Constitutional: well developed and well nourished; no acute distress Eyes: normal visual thibodeaux by confrontation, PERRL, EOM intact bilaterally and + nystagmus (Mild gaze evoked nystagmus noted) Neurologic: Oriented to:: Person, Place and Time Memory: Short Term Intact and Remote Intact Attention: Span Intact and Concentration Intact Speech Fluency: negative Dysarthria or Dysfluency Speech Aphasia: negative Aphasia Fund of Knowledge: Current Events, Past History and Vocabulary Cranial Nerves: Normal II, III, IV, , V, VII, VIII, IX, X, XI and XII Motor Strength: Normal Lower Extremities and Normal Upper Extremities Motor Tone: Normal Lower Extremities and Normal Upper Extremities Muscle Bulk/Involuntary Movements: No Involuntary Movements; negative Muscle Atrophy Sensation: negative Light Touch Intact, Pain/Temperature Intact, Vibration Intact or Proprioception Intact Coordination: Limited Balance; negative Dysdiadochokinesia, Finger-Nose Abnormal or Heel-Carpenter Abnormal Deep Tendon Reflexes: Rt Triceps: 1+, Lt Triceps: 1+, Rt Biceps: 1+, Lt Biceps: 1+, Rt Brachioradialis: 1+, Lt Brachioradialis: 1+, Rt Patellar: 1+, Lt Patellar: 1+, Rt Ankle: 0 and Lt Ankle: 0 Special Tests: negative Babinski Present Gait: Ataxic Results & Data Vital Signs (Past 12 Hours) Vital Signs Temp Pulse Pulse Resp BP BP BP 02/02/25 07:58 36.5 C 62 18 163/81 H 02/02/25 07:00 64 02/02/25 03:52 03/15/25 03:52 36.3 C L 72 18 155/75 H 02/02/25 03:14 36.3 C L 72 18 155/75 H 02/02/25 03:06 71 02/02/25 02:45 36.2 C L 66 18 152/72 H 02/01/25 23:02 61 02/01/25 22:49 66 18 161/84 H 02/01/25 21:00 63 18 124/76 Pulse Ox O2 Del Method O2 Flow Rate 02/02/25 07:58 92 Nasal Cannula 2 02/02/25 07:00 02/02/25 03:52 Nasal Cannula 2 02/02/25 03:52 93 Nasal Cannula 2 02/02/25 03:14 93 Nasal Cannula 2 02/02/25 03:06 02/02/25 02:45 92 Room Air 02/01/25 23:02 02/01/25 22:49 92 Nasal Cannula 2 02/01/25 21:00 90 Nasal Cannula 2 Laboratory Results WBC 7.76, hemoglobin 17.0, hematocrit 50.2, platelet count 202, ESR 42, sodium 136, potassium 4.5, chloride 98, CO2 33, BUN 22, creatinine 1.05, glucose 147, hemoglobin A1c 9.3, calcium 9.5, magnesium 1.9, AST 10, ALT less than 3, CRP 1.40, TSH 2.608 Diagnostic Findings Electrocardiogram, normal sinus rhythm, 66 bpm PG Care Time/CCT Total # of Minutes Spent Total Time Spent with Patient: Total time spent is greater than 50% in coordination of care (as documented) at patient's floor/unit and/or counseling patient: Coding Level of Care Code 55506 INT INP/OBS CARE 3/75MIN Diagnoses Diabetic peripheral neuropathy E11.42 Restless legs syndrome G25.81 S/P insertion of spinal cord stimulator Z98.890 S/P laminectomy with spinal fusion Z98.1 Chronic narcotic dependence F11.20 Marijuana dependence F12.20 Restrictive lung disease J98.4 Obstructive sleep apnea G47.33 Time Spent (min) 90 Comment Total time includes patient contact, chart review, counseling, note preparation
[2025-02-02] MEDS: IMIPRAMINE HCL 50 MG TAB PO SCH ×2 (08:43→20:31)
[2025-02-02] MEDS: dexAMETHasone 6 MG in SYRINGE 0 ML IV SCH (08:43)
[2025-02-02] MEDS: ROSUVASTATIN CALCIUM 20 MG TAB PO SCH (08:43)
[2025-02-02] MEDS: TAMSULOSIN HCL 0.4 MG CAP PO SCH (08:44)
[2025-02-02] MEDS: FINASTERIDE 5 MG TAB PO SCH (08:44)
[2025-02-02] MEDS: FENOFIBRATE NANOCRYSTALLIZED 145 MG TABLET PO SCH (08:44)
[2025-02-02] MEDS: LIDOCAINE 5% 1 PATCH TD SCH (08:45)
[2025-02-02] MEDS: LANTUS PER UNIT CHARGE SQ SCH (08:54)
[2025-02-02] MEDS: INSULIN ASPART PER UNIT CHARGE SC SCH (08:54)
[2025-02-02] MEDS: LANTUS PER UNIT CHARGE SQ ONE (12:52)
--- NOTE | 2025-02-02 13:11 | Electrocardiogram Report ---
Test Reason : Blood Pressure : */* mmHG Vent. Rate : 66 BPM Atrial Rate : 66 BPM P-R Int : 162 ms QRS Dur : 114 ms QT Int : 404 ms P-R-T Axes : 41 -22 36 degrees QTcB Int : 423 ms Normal sinus rhythm Minimal voltage criteria for LVH, may be normal variant Septal infarct , age undetermined Abnormal ECG When compared with ECG of 02-Jun-2024 23:12, Septal infarct is now Present Nonspecific T wave abnormality has replaced inverted T waves in Inferior leads Confirmed by David Tafoya ([id number]) on 02/02/2025 1:10:40 PM Referred By: REFERRED SELF Confirmed By: David Tafoya
--- NOTE | 2025-02-02 14:50 | Pharmacy Report ---
Pharmacy Glycemic Short Note 2 - Date of Service February 02, 2025 - Glycemic Short BSG Results (Last 24 hours): 02/01/25 02/02/25 02/02/25 19:17 08:04 12:05 Glucose 147 H POC Glucose 251 H 256 H OUTPATIENT ANTIDIABETIC REGIMEN: * Basaglar 30 units SC daily * Empagliflozin * A1c = 9.3% ASSESSMENT: * Mick is a 74 mary male with h/o of type II DM who presented to the ED due to one week of progressive body weakness, hip shoulder and neck pain, and bilateral lower extremity numbness. He received prednisone 50 mg PO last evening and was started on dexamethasone IV this morning (received 10 mg + 6 mg IV). Anticipate steroid induced hyperglycemia in the setting of high dose IV steroids. * Will increase home dose of basal insulin by ~33% today and trend fasting. * Will utilize weight based/stress 3 Novolog. Added overnight checks d/t BSG > 250 mg/dL x 2. May be able to d/c overnight checks if BSG trends down this evening. PLAN FOR INPATIENT GLYCEMIC CONTROL: * Hold outpatient oral diabetes medications * Basal insulin * Lantus 30 units SQ qam + 10 units with lunch * Reassess basal on 3/16 AM * Bolus insulin * NovoLog per scale ACHS or Q6hrs while NPO * Goal Range: Low 110 mg/dL - High 140 mg/dL * Correction Factor: 15 mg/dL/unit * Nutritional / Prandial insulin per carb ratio of 1 unit per 4 grams CHO consumed
[2025-02-02] MEDS: PRAMIPEXOLE DIHYDROCHLO 0.5 MG TAB PO SCH (18:25)
[2025-02-02] MEDS: POLYETHYLENE (MIRALAX) 17 GM PACK PO SCH (20:30)
[2025-02-02] MEDS: VENLAFAXINE HCL XR 75 MG CAPXR PO SCH (20:32)
[2025-02-02] MEDS: MAGNESIUM OXIDE 400 MG TAB PO SCH (20:32)
[2025-02-03] MEDS: INSULIN ASPART PER UNIT CHARGE SC SCH (00:09)
[2025-02-03] MEDS: ACETAMINOPHEN 325 MG TAB PO PRN (00:11)
[2025-02-03 07:31] LABS: BUN Creatinine Ratio 25.7 (10-20); Calcium 9.2 mg/dl (8.6-10.3); Creatinine Clr Calc Pharmacy 76.5 ml/min; Potassium 4.7 mmol/L (3.5-5.1)
[2025-02-03 07:41] LABS: Basophils # (auto) 0.01 K/uL (0.00-0.20); Basophils % (auto) 0.1 %; Eosinophils # (auto) 0.02 K/uL (0.00-0.50); Eosinophils % (auto) 0.1 %; Hematocrit (blood only) 47.1 % (42.0-52.0); Hemoglobin 15.8 g/dl (14.0-18.0); Immature Granulocytes # (auto) 0.09 K/uL (0.01-0.20); Immature Granulocytes % (auto) 0.6 %; Lymphocytes # (auto) 1.29 K/uL (1.20-3.40); Lymphocytes % (auto) 9.3 %; Mean Corpuscular Hemoglobin 30.7 pg (25.0-34.0); Mean Corpuscular Hgb Conc 33.5 g/dL (32.0-36.0); Mean Corpuscular Volume 91.5 fL (80.0-100.0); Mean Platelet Volume 9.5 fL (9.4-12.4); Monocytes # (auto) 0.76 K/uL (0.11-0.59); Monocytes % (auto) 5.5 %; Neutrophils # (auto) 11.69 K/uL (1.40-6.50); Neutrophils % (auto) 84.4 %; Platelet Count 229 K/uL (130-400); RDW Coefficient of Variation 13.3 % (11.5-14.5); RDW Standard Deviation 43.9 fL (36.4-46.3); Red Blood Count 5.15 M/uL (4.70-6.10); White Blood Count 13.86 K/ul (4.8-10.8)
--- NOTE | 2025-02-03 07:41 | Hospitalist Progress Note ---
Date of Service February 03, 2025 Assessment & Plan (1) Paresthesia of bilateral legs: Plan: Neurology consulted. Appreciate Dr. Hargrove's input Continue to treat for restless leg syndrome Mirapex and carbidopa levodopa Continue venlafaxine and imipramine No indication for lumbar puncture Consider discontinuing dexamethasone when pain is better controlled Patient with spinal cord stimulator for peripheral leg pain. MRI is ordered and pending to check for lead placement. Hopefully it will be completed today (2) S/P laminectomy with spinal fusion: Plan: Patient with ongoing low back pain with no radiculitis Peripheral neuropathy below the knees as listed above with stocking-like feeling Patient has spinal cord stimulator. MRI pending to evaluate leads for spinal cord stimulator. We will look for any new findings that could be contributing to his pain. Continue outpatient pain management regimen Imaging delayed as patient did not have charging cord for his stimulator. Hopeful that MRI will be completed today (3) Back pain: Plan: Thoracic and lumbar CT scans not very beneficial as patient has hardware and there is extensive metallic artifact. MRI has been ordered and hopefully will be completed today so we can see if there are any new areas to be addressed that are causing the pain Patient has Hydromorphone ordered and has received 7 total doses since 02/03/2024 at 04:15am. Continue to titrate to lowest dose needed Continue spinal cord stimulator Patient currently getting morphine sulfate as an outpatient with current MME per day at 60 and managed by primary care provider Requiring hydromorphone while inpatient -attempt to wean back to home dose as possible (4) Acute respiratory failure: Plan: Resolved. SpO2 93% on room air. Patient denies any shortness of breath. Continue treatment for COPD - Duonebs ordered PRN today Increase ambulation as tolerated (5) Diabetes mellitus, type 2: Plan: Poorly controlled. Hemoglobin A1c 9.3% Random glucose 112 Appreciate glycemic consult (6) Chronic narcotic dependence: Plan: Tobacco and marijuana use Patient offered NicoDerm patch for tobacco abuse. He defers at this time. He is aware that he can ask for nicotine patch to be ordered at any time. Plan VTE ppx: continue Eliquis Diet: t2dm Dispo: med/tele with hypoxia Admission and Anticipated Discharge Date Admission Date: February 02, 2025 Supervising Physician Co-Signing Physician Notes Attending Attestation - Chart reviewed, care plan d/w GILMER Haynes. I agree w/ the ramsey components of his documentation. Jesus Bernal MD Subjective Attending: Dr. Bernal Patient is a 74 y/o male with a PMHx of Neuropathy s/p spinal stimulator 1996, stage III CKD, type II DM on insulin, hypothyroidism, YVETTE on CPAP, history of PMR, A-fib on Eliquis. He presented to the ED due to 1 week of progressive body weakness, hip shoulder and neck pain, and bilateral lower extremity numbness. In the ED CT of lumbar and thoracic spine revealed no significant acute abnormalities. He became hypoxic at 88% on room air and was started on 2L NC in the ED. He is being admitted to titrate oxygen, possibly receive an MRI, have IV steroids and IV pain medication. Neurology consult placed for eval regarding bilateral lower extremity paresthesia. Patient continues with generalized musculoskeletal pain although he reports it appears somewhat improved today. He is scheduled for MRI of the back today. Patient does use medical marijuana and smokes tobacco at home. Offered NicoDerm patch. Patient deferred No other acute complaints Review of Systems 2 Review of Systems: A total of 10 systems was reviewed and is negative other than as listed in the HPI Physical Exam 2 Physical Exam: GENERAL : No acute distress EYES: No icterus, gaze conjugate NOSE: No evidence of epistaxis MOUTH: No lesions or candidiasis NECK: Supple LUNGS: Scattered bronchospasm in posterior thibodeaux. HEART: Regular, rate controlled ABDOMEN: Soft, NT, ND, BS Present EXTREMITIES: No LE edema, pedal pulses intact NEURO: A&OX3 Results & Data Results & Data Vital Signs (Past 12 Hours) Vital Signs Temp Pulse Pulse Resp BP Pulse Ox O2 Del Method 02/03/25 07:09 80 02/03/25 03:50 36.6 C 68 18 172/83 H 94 Nasal Cannula 02/02/25 23:30 36.5 C 63 18 151/82 H 94 Nasal Cannula 02/02/25 22:01 63 02/02/25 20:17 Nasal Cannula O2 Flow Rate 02/03/25 07:09 02/03/25 03:50 2 02/02/25 23:30 2 02/02/25 22:01 02/02/25 20:17 2 Laboratory Results 02/03/25 06:49 02/03/25 06:49 PG Care Time/CCT Total # of Minutes Spent Total Time Spent with Patient: Total time spent is greater than 50% in coordination of care (as documented) at patient's floor/unit and/or counseling patient: Coding Level of Care Code 83696 SUB INP/OBS CARE 2/35MIN Diagnoses Paresthesia of bilateral legs R20.2 S/P laminectomy with spinal fusion Z98.1 Back pain M54.9 Acute respiratory failure J96.00 Type 2 diabetes mellitus with microalbuminuria, with long-term current use of insulin E11.29; R80.9; Z79.4 Diabetes mellitus complication detail: with microalbuminuria Diabetes mellitus complication status: with kidney complications Diabetes mellitus watermaster insulin use: with retirement use Chronic narcotic dependence F11.20 (5) Diabetes mellitus, type 2 Diabetes mellitus complication detail: with microalbuminuria Diabetes mellitus complication status: with kidney complications Diabetes mellitus retirement insulin use: with retirement use Qualified Code(s): E11.29 - Type 2 diabetes mellitus with other diabetic kidney complication; R80.9 - Proteinuria, unspecified; Z79.4 - FPC (current) use of insulin
[2025-02-03] MEDS: LANTUS PER UNIT CHARGE SQ SCH (09:35)
[2025-02-03] MEDS: ALBUT/IPRATROP 3MG/0.5MG NEB 3 ML VIAL NEB PRN (11:20)
[2025-02-03] MEDS: ALBUTEROL HFA 8 GM INHALER INH PRN (17:00)
[2025-02-03] MEDS: DOCUSATE SODIUM 100 MG CAP PO PRN (20:30)
--- NOTE | 2025-02-04 01:25 | Magnetic Resonance Report ---
EXAM: MR thoracic spine wo con CLINICAL HISTORY: numbness TECHNIQUE: Multisequential and multiplanar images of the thoracic spine were submitted for review without contrast. COMPARISON: none FINDINGS: The cord is normal in caliber and signal. No abnormal bone marrow signal demonstrated throughout the thoracic spine to suggest a fracture. Multiple level anteror margnial osteophytes seen. Transpedicular fixation screws seen in T9 to T12 and all lumbar vertebra. [id number].[id number].5.1.1 Conus medullaris is normal in position /OBX.5.1.1OBX.5.1.2 signal intensity pattern. /OBX.5.1.2/OBX.5.1 Visualized soft tissues are normal in signal intensity. IMPRESSION: 1. Transpedicular fixation screws seen in T9 to T12 and all lumbar vertebra. 2. Early degenerative change in thoracic spine. 3. Normal signal intensity in thoracic cord. Electronically signed by Ron Morillo 02-04-2025 01:25 AM
--- NOTE | 2025-02-04 04:13 | Magnetic Resonance Report ---
EXAM: MR lumbar spine wo con CLINICAL HISTORY: Numbness TECHNIQUE: MRI of the lumbar spine was performed without the administration of intravenous contrast. Sequences obtained include sagittal T1-weighted, T2-weighted, STIR (Short Tau Inversion Recovery), and axial T2-weighted sequences. COMPARISON: Comparison is made with prior CT study on 02/01/2025 and MR lumbar spine dated on 08/09/2022. FINDINGS: Vertebral Alignment: Internal fixation of lower thoracic and lumbar spine with spinolaminectomy from T9 level through S1 vertebrae. Normal alignment of the lumbar spine without evidence of fracture or malalignment. No evidence of scoliosis is observed. Marrow signals are normal. Vertebral Bodies and Intervertebral Discs: Normal vertebral body height, no fracture identified. No lytic or sclerotic lesions. Normal bone marrow signal intensity. Diffuse spondylotic changes, seen as endplate sclerosis and mild endplate hypertrrophy. Intervertebral discs show diffuse decreased height, more on L5-S1 with vacuum effect. Diffuse decreased hydration signal, mounting to Pfirrmann grade 5. Marked diffuse facet joint arthropathy. Bilateral degenerative sacroiliitis, seen as subchondral sclerosis and marginal osteophytes. [id number] analysis: T12-L1: There is no significant disc pathology. No spinal canal stenosis. No neural foraminal stenosis. L1-L2: There is no significant disc pathology. No spinal canal stenosis. No neural foraminal stenosis. L2-L3: Left posterolateral disc osteophyte complex (4 mm) indenting ventral aspect of thecal sac, causing mild spinal canal stenosis and moderate left neural foraminal stenosis. L3-L4: Small disc osteophyte complex (3 mm). Mild spinal canal stenosis and bilateral neural foraminal stenosis. L4-L5: There is no significant disc pathology. No spinal canal stenosis. No neural foraminal stenosis. L5-S1: Disc osteophyte complex measured about 7 mm compressing the thecal sac and the traversing nerve roots., causing moderate spinal canal stenosis and bilateral neural foraminal stenosis. Spinal Cord and Nerve Roots: Conus medullaris terminates at the L1 level without abnormality. Nerve roots appear unremarkable bilaterally. The lower thoracic spinal cord, conus medullaris, and cauda equina nerve roots are unremarkable. Soft Tissues: Paraspinal soft tissues appear normal without evidence of abnormal signal intensity or mass lesions. IMPRESSION: 1. Internal fixation of lower thoracic and lumbar spine with spinolaminectomy from T9 level through S1 vertebrae. This limits assessment of adjacent structures. 2. Diffuse spondylotic changes with multilevel disc osteophyte complexes causing varying degrees of neural compromise, mainly at the L5-S1 level. 3. Intervertebral discs show diffuse desiccation, more on L5-S1 with vacuum effect. 4. Marked diffuse facet joint arthropathy. 5. Bilateral degenerative sacroiliitis. 6. No significant interval changes. Electronically signed by Luis Senior 02-04-2025 04:13 AM
[2025-02-04 06:59] LABS: Basophils # (auto) 0.02 K/uL (0.00-0.20); Basophils % (auto) 0.2 %; Eosinophils # (auto) 0.06 K/uL (0.00-0.50); Eosinophils % (auto) 0.5 %; Hematocrit (blood only) 46.2 % (42.0-52.0); Hemoglobin 15.7 g/dl (14.0-18.0); Immature Granulocytes # (auto) 0.04 K/uL (0.01-0.20); Immature Granulocytes % (auto) 0.3 %; Lymphocytes # (auto) 1.97 K/uL (1.20-3.40); Lymphocytes % (auto) 15.9 %; Mean Corpuscular Hemoglobin 30.8 pg (25.0-34.0); Mean Corpuscular Volume 90.8 fL (80.0-100.0); Mean Platelet Volume 9.6 fL (9.4-12.4); Monocytes # (auto) 0.81 K/uL (0.11-0.59); Monocytes % (auto) 6.5 %; Neutrophils # (auto) 9.48 K/uL (1.40-6.50); Neutrophils % (auto) 76.6 %; Platelet Count 232 K/uL (130-400); RDW Coefficient of Variation 13.1 % (11.5-14.5); RDW Standard Deviation 43.3 fL (36.4-46.3); Red Blood Count 5.09 M/uL (4.70-6.10); White Blood Count 12.38 K/ul (4.8-10.8)
[2025-02-04 07:43] LABS: Creatinine Clr Calc Pharmacy 69.2 ml/min; Potassium 3.9 mmol/L (3.5-5.1)
[2025-02-04] MEDS: LANTUS PER UNIT CHARGE SQ SCH (09:10)
--- NOTE | 2025-02-04 09:13 | Pharmacy Report ---
Pharmacy Glycemic Short Note 2 - Date of Service February 04, 2025 - Glycemic Short BSG Results (Last 24 hours): 02/03/25 02/03/25 02/03/25 12:07 17:16 19:55 Glucose POC Glucose 240 H 172 H 195 H 02/04/25 02/04/25 06:01 07:54 Glucose 65 L POC Glucose 85 OUTPATIENT ANTIDIABETIC REGIMEN: * Basaglar 30 units SC daily * Empagliflozin 25 mg PO daily * HbA1c = 9.3% (02/02/25) ASSESSMENT: 02/04: * Received 76 units of insulin yesterday, 30 of which were basal. BSGs were [phone] mg/dL. * Fasting BSG well below goal at 85 mg/dL today. Will reduce basal by ~33% this morning. Remains on Dexamethasone 6 mg IV daily. * No change to Novolog at this time. Tolerating T2DM diet. 02/02: * Mick is a 74 mary male with h/o of type II DM who presented to the ED due to one week of progressive body weakness, hip shoulder and neck pain, and bilateral lower extremity numbness. He received prednisone 50 mg PO last evening and was started on dexamethasone IV this morning (received 10 mg + 6 mg IV). Anticipate steroid induced hyperglycemia in the setting of high dose IV steroids. * Will increase home dose of basal insulin by ~33% today and trend fasting. * Will utilize weight based/stress 3 Novolog. Added overnight checks d/t BSG > 250 mg/dL x 2. May be able to d/c overnight checks if BSG trends down this evening. PLAN FOR INPATIENT GLYCEMIC CONTROL: * Hold outpatient oral diabetes medications * Basal insulin * Lantus 20 units SC AM * Bolus insulin * NovoLog per scale ACHS or Q6hrs while NPO * Goal Range: Low 110 mg/dL - High 140 mg/dL * Correction Factor: 15 mg/dL/unit * Nutritional / Prandial insulin per carb ratio of 1 unit per 4 grams CHO consumed
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
[2025-02-04] MEDS: FORMOTEROL 20 MCG/2 ML VIAL NEB SCH (13:12)
[2025-02-04] MEDS: BUDESONIDE 0.25 MG/2 ML VIAL (PULMICORT) NEB SCH (13:12)
[2025-02-04] MEDS: GABAPENTIN 100 MG CAP PO SCH (13:50)
[2025-02-05] MEDS: HYDROmorphone INJ 0.5 MG/0.5 ML SYR IV PRN (02:08)
[2025-02-05] MEDS: guaiFENesin 600 MG TABCR PO SCH (07:42)
[2025-02-05] MEDS: LANTUS PER UNIT CHARGE SQ SCH (08:57)
--- NOTE | 2025-02-05 16:33 | Hospitalist Progress Note ---
Date of Service February 05, 2025 Assessment & Plan (1) Paresthesia of bilateral legs: Plan: appreciate [facility] neurology evaluation paresthesias of distal legs likely due to diabetic neuropathy per neurology significant DDD of L5-S1 as seen on MRI lumbar spine could also be contributing to some degree he was willing to try gabapentin (had been on gabapentin & lyrica in the past per [facility] at the [facility] clinic - pain management) thus, started gabapentin 100mg TID and titrate as tolerated cont IV dexamethasone 6mg daily - this should also help his bronchitis; would d/c home on dex taper stop IV dilaudid; change back to his usual morphine regimen of PO morphine 15mg q6h prn with respect to his spinal cord stimulator device -- the [employer] rep came today, fixed the issue with the controller, confirmed the stimulator is working as expected, and patient noted immediate relief of his neuropathic symptoms following the device interrogation (2) S/P laminectomy with spinal fusion: Plan: MRIs of Tspine and Lspine reviewed with patient there are no acute findings on either MRI he does have moderate DDD at L5-S1 -- certainly could be contributing in some fashion to his neuropathic complaints of the distal legs however, there is nothing on the MRIs that would require surgical intervention he follows with pain management in [place] ([facility] - [facility]) and is under contract with them gets monthly refills for PO morphine prn no changes in his regimen at this time see #1 above (3) Back pain: Plan: back pain improved/resolved b/l leg paresthesias improved cont steroids cont newly started gabapentin stop IV dilaudid prn transition back to his PO morphine (4) Acute respiratory failure: Plan: Resolved previous O2 requirement resolved 2nd to acute bronchitis as seen on chest CT cont IV dexamethasone; change to PO dex at discharge for a taper cont pulmicort nebs BID cont formoterol nebs BID cont tessalon prn cont mucinex BID flutter valve, etc. of note - the patient is not on any inhalers at home at discharge would send him with albuterol and spacer device along with dexamethasone taper (5) Diabetes mellitus, type 2: Plan: Poorly controlled. Hemoglobin A1c 9.3% appreciate glycemic consult - they are providing glycemic oversight cont basal-bolus insulins he has been a diabetic for 30+ years complicated by diabetic neuropathy (6) Chronic narcotic dependence: Plan: morphine prn follows with pain management in [place] (7) Hypothyroidism: Plan: TSH 2.6 cont synthroid (8) Afib: Plan: cont Eliquis 5mg BID (had placed it on hold in the event he needed a surgical procedure for his spinal stimulator device - can resume Eliquis since the device is working fine) (9) COPD with exacerbation: Plan: cont steroids Rx as above (10) Mood disorder: Plan: see discussion in the subjective portion of note re: imipramine prescription for imipramine 100mg HS sent to [facility] pharmacy at his request imipramine no longer available at [facility] in [place] Plan DVT proph - eliquis appreciate the assistance from the [employer] rep for his stimulator device should be able to d/c home tomorrow updated at bedside today Admission and Anticipated Discharge Date Admission Date: February 03, 2025 Subjective tele wnl overnight the [employer] rep came to [facility] today to check Mr Sullivan's spinal stimulator device apparently the hand-held controller was not communicating with the stimulator the [employer] rep fixed this issue once fixed the stim device was turned on appropriately and it is functioning normally the patient noted an immediate difference in his neuropathy of the legs once the device was working patient thinks the device hasn't been working normally for 1-2 months cough/congestion improving denies any back pain has not needed any IV dilaudid since early this am patient reports that he uses [facility] in [place] and hasn't been able to get his imipramine filled with them we contacted [facility] and their supplier no longer has it in stock the [facility] pharmacy checked other [facility] locations in the area and no one has it thus, the imipramine script was sent to [facility] pharmacy at his request the original prescriber of this med is a psych provider out of [place] patient does feel it helps his overall mood, etc. I also spoke with REENA Gutierrez, at [facility] in [place] this is where Mr Sullivan gets his monthly morphine tablets informed her of his hospital stay, use of IV dilaudid while here, addition of gabapentin, etc. she advised no changes in his usual morphine regimen Review of Systems Review of Systems: CV - no chest pain pulm - no dyspnea or BUSH GI - no N/V Physical Exam Physical Exam: gen - sitting at side of bed, NAD, looks very comfortable today neck - no JVD heart - RRR, s1 s2, no murmur lungs - mild end-exp wheezes b/l, no increased work of breathing; no rales abd - soft NT ND BS+ ext - no edema, pulses 2+ b/l feet Results & Data Results & Data Vital Signs (Past 12 Hours) Vital Signs Temp Pulse Pulse Resp BP Pulse Ox O2 Del Method 02/05/25 15:15 36.7 C 79 20 150/84 H 94 Room Air 02/05/25 15:00 85 02/05/25 11:50 36.0 C L 82 20 133/78 95 Room Air 02/05/25 07:31 36.3 C L 81 20 145/92 H 98 Room Air 02/05/25 07:30 Room Air 02/05/25 07:16 80 17 90 Room Air 02/05/25 06:59 66 Laboratory Results Laboratory Results - last 24 hr 02/05/25 02/05/25 02/05/25 07:53 12:04 16:49 POC Glucose 104 H 128 H 121 H PG Care Time/CCT Total # of Minutes Spent Total Time Spent with Patient: Total time spent is greater than 50% in coordination of care (as documented) at patient's floor/unit and/or counseling patient: Coding Level of Care Code 50192 SUB INP/OBS CARE 3/50MIN Diagnoses Paresthesia of bilateral legs R20.2 S/P laminectomy with spinal fusion Z98.1 Back pain M54.9 Acute respiratory failure J96.00 Type 2 diabetes mellitus with microalbuminuria, with long-term current use of insulin E11.29; R80.9; Z79.4 Diabetes mellitus complication detail: with microalbuminuria Diabetes mellitus complication status: with kidney complications Diabetes mellitus terminal make up operator insulin use: with prison use Chronic narcotic dependence F11.20 Acquired hypothyroidism E03.9 Hypothyroidism type: acquired Paroxysmal atrial fibrillation I48.0 Atrial fibrillation type: paroxysmal COPD with exacerbation J44.1 Mood disorder F39 (5) Diabetes mellitus, type 2 Diabetes mellitus complication detail: with microalbuminuria Diabetes mellitus complication status: with kidney complications Diabetes mellitus terminal make up operator insulin use: with prison use Qualified Code(s): E11.29 - Type 2 diabetes mellitus with other diabetic kidney complication; R80.9 - Proteinuria, unspecified; Z79.4 - oysterman (current) use of insulin (7) Hypothyroidism Hypothyroidism type: acquired Qualified Code(s): E03.9 - Hypothyroidism, unspecified (8) Afib Atrial fibrillation type: paroxysmal Qualified Code(s): I48.0 - Paroxysmal atrial fibrillation
[2025-02-05] MEDS: MoRPHine SULFATE IR 15 MG TAB (IMMEDIATE RELEASE) PO PRN (20:45)
[2025-02-06] MEDS: LANTUS PER UNIT CHARGE SQ SCH (08:46)
[2025-02-06 11:41] VITALS: BP 111/69; RESP 18; TEMP 97.9; O2SAT 91
[2025-02-06 12:50] LABS: Influenza A virus by PCR Negative (Neg); Influenza B virus by PCR Negative (Neg); RSV by PCR Negative (Neg); SARS CoV2 RNA(COVID-19) Ceph NEGATIVE (Negative)
[2025-02-06 13:41] VITALS: PULSE 68
== END 2025-02-06 14:00 | disposition home or self-care (01) | DRG 73 ==
LOC: ED 17:58 → 2N 17:58 → SUATTDRO 02-02 01:30 → 2N 02-02 02:45 → SUATTDRO 02-03 16:43